=== PATIENT | female | born 1960 | race Caucasian/White ===

== ENCOUNTER 2020-09-19 06:26 | Day surgery (SDC) | payer OTHER, SELFPAY ==
[2020-09-13 14:23] VITALS: BMI 22.1
--- NOTE | 2020-09-18 10:16 | P.CONAN_ITS ---
Documented by User: Swati Arizmendi 09/18/20 10:16 HPI - Anesthesia Eval Consult details Narrative: 60yo F for Colonoscopy [facility] Past Medical History Medical History Anxiety Hx of gastroesophageal reflux (GERD) Surgical History Surgical History Hx of colonoscopy Hx of esophagogastroduodenoscopy Hx of tonsillectomy Social History Social History Smoking Status: Former smoker Smoking Quit Date: > 5 yrs ago Advance Directives: No Advance Directives Information Provided: No Advance Directives on File: No Meds Allergies Allergy/AdvReac Type Severity Reaction Status Date / Time No Known Allergies Allergy Verified 09/13/20 14:15 Home Medications Medication Instructions Recorded Confirmed Type omeprazole 20 mg PO DAILY 09/13/20 09/13/20 History sertraline 100 mg PO DAILY 09/13/20 09/13/20 History Exam Exam Date and Time: September 18, 2020 1016 Height,Weight and Vital Signs: Height 5 ft 5 in Weight 60.328 kg Assessment and Plan Assessment Anesthesia Assessment: Chart Reviewed Documented by User: Silva Robles 09/19/20 07:18 [facility] Past Medical History Medical History Anxiety Hx of gastroesophageal reflux (GERD) Surgical History Surgical History Hx of colonoscopy Hx of esophagogastroduodenoscopy Hx of tonsillectomy Social History Social History Smoking Status: Former smoker Smoking Quit Date: > 5 yrs ago Advance Directives: No Advance Directives Information Provided: No Advance Directives on File: No Meds Allergies Allergy/AdvReac Type Severity Reaction Status Date / Time No Known Allergies Allergy Verified 09/13/20 14:15 Home Medications Medication Instructions Recorded Confirmed Type omeprazole 20 mg PO DAILY 09/13/20 09/13/20 History sertraline 100 mg PO DAILY 09/13/20 09/13/20 History Exam Airway Mallampati Class: I (Cap front bottom) TM Dist: >3cm Neck ROM: Full Heart: RRR Lungs: CTA BL Assessment and Plan Assessment Anesthesia Assessment: Anesthesia Plan Discussed and Chart Reviewed Final Anesthetic Review NPO: Yes (Sip water with meds) ASA Class: II Final Preanesthetic Review: Meds/Allgs Chart Reviewed and Consent Obtained/Reviewed Patient Risk: Intermediate Procedure Risk: Intermediate Anesthetic Plan Anesthetic Plan: MAC: Disposition: Standard PACU
[2020-09-19 06:50] VITALS: BP 100/59; PULSE 70; RESP 16; TEMP 35.9; O2SAT 98
[2020-09-19] MEDS: Lactated Ringers 1,000 ML 100 ML IVCONT (06:53)
[2020-09-19 08:30] VITALS: BP 134/75; PULSE 61; RESP 16; TEMP 36.1; O2SAT 99
--- NOTE | 2020-09-19 08:34 | PM.OP ---
Brief Operative Note Date of Service: 09/19/20 Pre-op diagnosis: Screening, Family hx of colon cancer Post-op diagnosis: other (Diverticulosis) Procedure: Colonoscopy to cecum and TI Surgeon: Jayson Roa Anesthesia: MAC Estimated blood loss (mL): 0 Pathology: none sent Condition: stable Disposition: PACU
[2020-09-19 08:44] VITALS: BP 147/72; PULSE 52; RESP 16; TEMP 36.1; O2SAT 99
--- NOTE | 2020-09-19 08:57 | OP_ITS ---
SURGEON: Jayson Roa MD INDICATIONS: The patient presents for evaluation of colorectal cancer screening. Full consent has been obtained from her for this, including risks of bleeding and perforation. PREOPERATIVE DIAGNOSIS: POSTOPERATIVE DIAGNOSIS: PROCEDURE PERFORMED: Colonoscopy to the cecum and terminal ileum. ESTIMATED BLOOD LOSS: COMPLICATIONS: ANESTHESIA: Monitored anesthesia care. ASSISTANTS: SPECIMENS: PREOPERATIVE DIAGNOSES: Colorectal cancer screening and family history of colon cancer. POSTOPERATIVE DIAGNOSES: Colorectal cancer screening and family history of colon cancer, sigmoid diverticulosis, and small internal hemorrhoids. DESCRIPTION OF PROCEDURE: The patient was placed in the left lateral decubitus position. The digital rectal exam revealed no abnormalities. The Olympus video pediatric colonoscope was entered into the rectum and advanced easily to the cecum. Once in the cecum, I did identify normal-appearing cecal pouch with appendiceal orifice and a normal-appearing ileocecal valve. The terminal ileum was cannulated and appeared normal. Scope was withdrawn back in the colon. The entire cecum and ileocecal valve appeared normal. The scope was slowly withdrawn assessing all mucosal surfaces carefully. Preparation was excellent. I did not visualize any sign of polyps, colitis, nor angiodysplasia. There was a mild amount of sigmoid diverticulosis. In the rectum, scope was retroflexed visualizing small internal hemorrhoids, but no other pathology. The rectal mucosa appeared normal. The scope was straightened out and withdrawn from the patient. She tolerated the procedure well and was returned to the recovery area in stable condition. IMPRESSION: 1. Sigmoid diverticulosis. 2. Internal hemorrhoids. PLAN: Given her family history, I would recommend a followup colonoscopy in 5 years for further screening. She will see me otherwise on a p.r.n. basis. MD CJ Box/BIRGIT / [id number]
--- NOTE | 2020-09-19 09:06 | HO.POSTANES ---
Post Anesthesia Evaluation Post Anesthesia Evaluation Vital Signs: Vital Signs Temp Pulse Resp BP Pulse Ox 09/19/20 08:44 97.0 F 52 16 147/72 H 99 09/19/20 08:30 97.0 F 61 16 134/75 99 09/19/20 06:50 96.7 F L 70 16 100/59 L 98 Anesthesia: Monitored Mental Status: Awake Pain Control: Satisfactory Nausea/Vomiting: None Hydration: Adequate Anesthesia-Related Issues: No Anes. Related Issues
== END 2020-09-19 09:10 | disposition home or self-care (01) ==
PROVIDERS: Visit Provider Internal Medicine
PROC: 0DJD8ZZ Inspection of Lower Intestinal Tract, Via Natural or Artificial Opening Endoscopic (ICD-10-PCS; CPT 45378; principal; 2020-09-19 07:30)
DX: Z12.11 Encounter for screening for malignant neoplasm of colon (principal); K57.30 Diverticulosis of large intestine without perforation or abscess without bleeding; K64.8 Other hemorrhoids; Z80.0 Family history of malignant neoplasm of digestive organs
CPT/HCPCS: 45378

== ENCOUNTER 2020-11-05 08:05 | Outpatient (REF) | payer OTHER, SELFPAY ==
--- NOTE | 2020-11-05 08:09 | MM_ITS ---
EXAMINATION: MM SCREENING DIGITAL BREAST TOMOSYNTHESIS, BILATERAL CLINICAL INFORMATION: Screening. Asymptomatic. The lifetime risk of breast cancer based on the Tyrer-Cuzick Model is 7%. COMPARISON: Mammography: 10/31/2019, 10/25/2018, 09/28/2017 TECHNIQUE: Digital breast tomosynthesis is performed in both the craniocaudal and mediolateral oblique views along with computer-aided detection (CAD). Synthesized 2D images are generated from the tomosynthesis. FINDINGS: There are scattered areas of fibroglandular density (ACR BI-RADS breast composition Category b). There are no significant masses, abnormal calcifications, or other abnormalities. Parenchymal pattern is similar to prior studies. The axilla and skin contours are unremarkable. MM/MM tomosynthesis screening BI IMPRESSION: No mammographic evidence of malignancy. ASSESSMENT: BI-RADS 1: Negative RECOMMENDATION: Routine annual mammography screening. This patient's information was entered into a reminder system with a target due date for their next mammogram.
== END 2020-11-05 08:06 | disposition home or self-care (01) ==
LOC: HO.MAMMO 08:05
PROVIDERS: PCP Internal Medicine; Visit Provider Internal Medicine
DX: Z12.31 Encounter for screening mammogram for malignant neoplasm of breast (principal)
CPT/HCPCS: 77063; 77067

== ENCOUNTER 2021-03-06 07:52 | Outpatient (REF) | payer OTHER, SELFPAY ==
[2021-03-06 12:05] LABS: Alanine Aminotransferase 17 U/L (0-31); Albumin Level 4.4 g/dL (3.5-5.0); Alkaline Phosphatase 66 U/L (39-117); Anion Gap 13 (12-20); Aspartate Amino Transferase 22 U/L (5-31); Bilirubin Total 0.3 mg/dL (0.0-1.0); Blood Urea Nitrogen 16 mg/dL (9-16); Calcium 9.4 mg/dL (8.4-10.2); Carbon Dioxide 24 mmol/L (22-29); Chloride 103 mmol/L (96-108); Cholesterol 241 mg/dL; Estimated Glomerular Filt Rate > 60; Glucose Fasting 98 mg/dL (60-99); HDL Cholesterol 106 mg/dL; LDL Cholesterol Calculated 121 mg/dl; Potassium 4.3 mmol/L (3.3-5.1); Sodium 136 mmol/L (135-145); Total Protein 7.3 g/dL (6.5-8.0); Triglycerides 71 mg/dL
== END 2021-03-06 07:53 | disposition home or self-care (01) ==
LOC: HO.HMGCLDS 07:52
PROVIDERS: PCP Internal Medicine; Visit Provider Internal Medicine
DX: F41.8 Other specified anxiety disorders (principal); K21.9 Gastro-esophageal reflux disease without esophagitis; Z87.891 Personal history of nicotine dependence
CPT/HCPCS: 36415; 80053; 80061

== ENCOUNTER 2021-10-18 06:21 | Outpatient (REF) | payer OTHER, SELFPAY ==
[2021-10-18 06:56] LABS: Binax Internal Control QC Valid; Binax Now Covid-19 Ag Positive (Negative); Binax Performed by: HO.BONILM
== END 2021-10-18 06:22 | disposition home or self-care (01) ==
LOC: HO.HMGCLDS 06:21
PROVIDERS: PCP Internal Medicine; Visit Provider Physician Assistant
DX: Z20.822 Contact with and (suspected) exposure to COVID-19 (principal); J02.9 Acute pharyngitis, unspecified
CPT/HCPCS: 36415

== ENCOUNTER 2021-11-08 07:32 | Outpatient (REF) | payer OTHER, SELFPAY ==
--- NOTE | ~2021-11-08 | MM_ITS ---
EXAMINATION: MM SCREENING DIGITAL BREAST TOMOSYNTHESIS, BILATERAL CLINICAL INFORMATION: Screening. Asymptomatic. The lifetime risk of breast cancer based on the Tyrer-Cuzick Model is 7%. COMPARISON: Mammography: 11/05/2020, 10/31/2019, 10/25/2018 TECHNIQUE: Digital breast tomosynthesis is performed in both the craniocaudal and mediolateral oblique views along with computer-aided detection (CAD). Synthesized 2D images are generated from the tomosynthesis. FINDINGS: There are scattered areas of fibroglandular density (ACR BI-RADS breast composition Category b). There are no significant masses, abnormal calcifications, or other abnormalities. Parenchymal pattern is similar to prior exams. There is a smooth low left axillary tail node on left MLO view, beyond field of view on prior studies. The axilla and skin contours are unremarkable. No significant changes. MM/MM tomosynthesis screening BI IMPRESSION: No mammographic evidence of malignancy. ASSESSMENT: BI-RADS 2: Benign RECOMMENDATION: Routine annual mammography screening. This patient's information was entered into a reminder system with a target due date for their next mammogram.
== END 2021-11-08 07:33 | disposition home or self-care (01) ==
LOC: HO.MAMMO 07:32
PROVIDERS: PCP Internal Medicine; Visit Provider Internal Medicine
DX: Z12.31 Encounter for screening mammogram for malignant neoplasm of breast (principal)
CPT/HCPCS: 77063; 77067

== ENCOUNTER 2021-11-13 07:08 | Outpatient (REF) | payer OTHER, SELFPAY ==
[2021-11-13 11:30] LABS: MANUAL DIFF FLAG NO
[2021-11-13 11:40] LABS: Basophils Percent Auto 0.5 % (0-2); Eosinophils Absolute Auto 0.2 X10*3/uL (0.0-0.4); Hematocrit 41.4 % (37.0-47.0); Hemoglobin 13.2 g/dl (12.0-16.0); Imm Gran Abs Auto 0.01 X10*3/uL (0.00-0.03); Imm Gran Pct Auto 0.2 % (0.0-0.4); Lymphocytes Absolute Auto 1.8 X10*3/uL (1.2-4.9); Lymphocytes Percent Auto 30.4 % (20-40); Mean Corpuscular HGB Conc 31.9 g/dl (31.0-35.0); Mean Corpuscular Hemoglobin 28.8 pg (27.0-33.0); Mean Corpuscular Volume 90.2 fL (80.0-98.0); Mean Platelet Volume 8.6 fL (9.4-12.3); Monocytes Absolute Auto 0.6 X10*3/uL (0.1-1.2); Monocytes Percent Auto 10.1 % (2-11); Neutrophils Absolute Auto 3.3 x10*3/uL (2.0-8.3); Neutrophils Percent Auto 55.8 % (45-73); Platelet Count 321 X10*3/uL (160-400); Red Blood Count 4.59 X10*6/uL (4.20-5.50); Red Cell Distribution Width 12.6 % (11.0-16.0)
[2021-11-13 12:18] LABS: Alanine Aminotransferase 18 U/L (0-31); Albumin Level 4.4 g/dL (3.5-5.0); Alkaline Phosphatase 58 U/L (39-117); Anion Gap 9 (12-20); Aspartate Amino Transferase 22 U/L (5-31); Bilirubin Total 0.4 mg/dL (0.0-1.0); Blood Urea Nitrogen 19 mg/dL (9-16); Calcium 9.7 mg/dL (8.4-10.2); Carbon Dioxide 30 mmol/L (22-29); Chloride 102 mmol/L (96-108); Estimated Glomerular Filt Rate > 60; Glucose Random 91 mg/dL (60-115); Magnesium 2.3 mg/dL (1.6-2.6); Potassium 4.2 mmol/L (3.3-5.1); Sodium 137 mmol/L (135-145); Total Protein 7.6 g/dL (6.5-8.0)
== END 2021-11-13 07:09 | disposition home or self-care (01) ==
LOC: HO.HMGCLDS 07:08
PROVIDERS: Visit Provider Internal Medicine
DX: Z00.01 Encounter for general adult medical examination with abnormal findings (principal); F41.8 Other specified anxiety disorders; K21.9 Gastro-esophageal reflux disease without esophagitis
CPT/HCPCS: 36415; 80053; 83735; 85025

== ENCOUNTER 2022-09-23 12:47 | Outpatient (REF) | payer OTHER, SELFPAY ==
[2022-09-23 14:21] LABS: Influenza A PCR POSITIVE (Negative); Influenza B PCR NEGATIVE (Negative); Resp Syncy Virus RNA Qual PCR NEGATIVE (Negative); SARS COV2 PCR INHOUSE NEGATIVE (Negative)
== END 2022-09-23 12:48 | disposition home or self-care (01) ==
LOC: HO.LNP 12:47
PROVIDERS: Visit Provider Physician Assistant
DX: J06.9 Acute upper respiratory infection, unspecified (principal); Z20.822 Contact with and (suspected) exposure to COVID-19
CPT/HCPCS: 0241U

== ENCOUNTER 2022-11-13 07:55 | Outpatient (REF) | payer OTHER, SELFPAY ==
--- NOTE | ~2022-11-13 | MM_ITS ---
EXAMINATION: MM SCREENING DIGITAL BREAST TOMOSYNTHESIS, BILATERAL CLINICAL INFORMATION: Screening. Asymptomatic. The lifetime risk of breast cancer based on the Tyrer-Cuzick Model is 5.9%. COMPARISON: Mammography: November 08, 2021 and studies dating back to September 09, 2016 TECHNIQUE: Digital breast tomosynthesis is performed in both the craniocaudal and mediolateral oblique views along with computer-aided detection (CAD). Synthesized 2D images are generated from the tomosynthesis. FINDINGS: There are scattered areas of fibroglandular density (ACR BI-RADS breast composition Category b). There are no significant masses, abnormal calcifications, or other abnormalities. MM/MM tomosynthesis screening BI IMPRESSION: No significant changes ASSESSMENT: BI-RADS 1: Negative RECOMMENDATION: Routine annual mammography screening. This patient's information was entered into a reminder system with a target due date for their next mammogram.
== END 2022-11-13 07:56 | disposition home or self-care (01) ==
LOC: HO.MAMMO 07:55
PROVIDERS: Visit Provider Internal Medicine
DX: Z12.31 Encounter for screening mammogram for malignant neoplasm of breast (principal)
CPT/HCPCS: 77063; 77067

== ENCOUNTER 2022-11-17 06:15 | Outpatient (REF) | payer OTHER, SELFPAY ==
[2022-11-17 11:20] LABS: MANUAL DIFF FLAG NO
[2022-11-17 11:39] LABS: Basophils Absolute Auto 0.1 X10*3/uL (0.0-0.2); Basophils Percent Auto 1.1 % (0-2); Eosinophils Absolute Auto 0.2 X10*3/uL (0.0-0.4); Eosinophils Percent Auto 3.7 % (0-4); Hematocrit 40.1 % (37.0-47.0); Hemoglobin 13.1 g/dl (12.0-16.0); Imm Gran Abs Auto 0.01 X10*3/uL (0.00-0.03); Imm Gran Pct Auto 0.2 % (0.0-0.4); Lymphocytes Absolute Auto 1.7 X10*3/uL (1.2-4.9); Lymphocytes Percent Auto 37.5 % (20-40); Mean Corpuscular HGB Conc 32.7 g/dl (31.0-35.0); Mean Corpuscular Volume 88.7 fL (80.0-98.0); Mean Platelet Volume 8.9 fL (9.4-12.3); Monocytes Absolute Auto 0.5 X10*3/uL (0.1-1.2); Neutrophils Absolute Auto 2.2 x10*3/uL (2.0-8.3); Neutrophils Percent Auto 47.5 % (45-73); Platelet Count 243 X10*3/uL (160-400); Red Blood Count 4.52 X10*6/uL (4.20-5.50); Red Cell Distribution Width 13.1 % (11.0-16.0); White Blood Count 4.6 X10*3/uL (4.8-10.8)
[2022-11-17 12:18] LABS: Alanine Aminotransferase 20 U/L (0-31); Albumin Level 4.4 g/dL (3.5-5.0); Alkaline Phosphatase 52 U/L (39-117); Anion Gap 13 (12-20); Aspartate Amino Transferase 24 U/L (5-31); Bilirubin Total 0.5 mg/dL (0.0-1.0); Blood Urea Nitrogen 18 mg/dL (9-16); Calcium 9.3 mg/dL (8.4-10.2); Carbon Dioxide 27 mmol/L (22-29); Chloride 105 mmol/L (96-108); Cholesterol 278 mg/dL; Estimated Glomerular Filt Rate > 60; Glucose Fasting 89 mg/dL (60-99); HDL Cholesterol 109 mg/dL; LDL Cholesterol Calculated 156 mg/dl; Potassium 3.9 mmol/L (3.3-5.1); Sodium 141 mmol/L (135-145); TSH reflex Free T4 3.19 uIU/mL (0.32-4.0); Triglycerides 65 mg/dL
[2022-11-21 16:24] LABS: Vitamin D 25-OH, D2 <4 ng/mL; Vitamin D 25-OH, D3 37 ng/mL; Vitamin D 25-OH, Total 37 ng/mL (30-100)
== END 2022-11-17 06:16 | disposition home or self-care (01) ==
LOC: HO.HMGCLDS 06:15
PROVIDERS: PCP Internal Medicine; Visit Provider Internal Medicine
DX: Z00.01 Encounter for general adult medical examination with abnormal findings (principal); K21.9 Gastro-esophageal reflux disease without esophagitis; F41.8 Other specified anxiety disorders; M85.80 Other specified disorders of bone density and structure, unspecified site; R45.4 Irritability and anger
CPT/HCPCS: 36415; 80053; 80061; 82306; 84443; 85025

== ENCOUNTER 2023-05-08 06:05 | Outpatient (REF) | payer OTHER, SELFPAY ==
[2023-05-08 11:57] LABS: Cholesterol 257 mg/dL; HDL Cholesterol 111 mg/dL; LDL Cholesterol Calculated 135 mg/dl; Triglycerides 55 mg/dL
== END 2023-05-08 06:06 | disposition home or self-care (01) ==
LOC: HO.HMGCLDS 06:05
PROVIDERS: PCP Internal Medicine; Visit Provider Internal Medicine
DX: E78.9 Disorder of lipoprotein metabolism, unspecified (principal); F41.8 Other specified anxiety disorders; J44.9 Chronic obstructive pulmonary disease, unspecified; K21.9 Gastro-esophageal reflux disease without esophagitis; R45.4 Irritability and anger
CPT/HCPCS: 36415; 80061

== ENCOUNTER 2023-05-19 15:19 | Outpatient (AMB) | payer OTHER, SELFPAY ==
[2023-05-19 15:23] VITALS: BP 138/74; PULSE 74; O2SAT 97; BMI 20.2
--- NOTE | 2023-05-19 15:23 | A.OFFPC_ITS ---
Vital Signs 05/19/23 15:23 Height 5 ft 5 in Weight 121 lb 8 oz BMI 20.2 BP 138/74 Blood Pressure Location Rt brachial Position Sitting Pulse 74 Pulse Source Pulse Oximeter Pulse Oximetry (%) 97 Oxygen Delivery Method Room Air Intake Visit Reasons: annual PE Allergies No Known Allergies Allergy (Verified 05/19/23 15:24) Medication List - Last Reconciled 05/19/23 by Yvette Wiley MD albuterol sulfate 90 mcg/actuation (ProAir HFA) 1 inh inhalation QID PRN 30 days omeprazole 20 mg PO DAILY 90 days sertraline 150 mg (1.5 x 100 mg) PO DAILY 90 days Tobacco use date assessed: 05/19/23 Dental Screening Dental Screen Date: 05/19/23 Did you have a dental visit in the last 12 months?: Yes Did you have a dental problem in the last 6 months where you did not have access to dental care?: No Was dental information given to patient?: No HPI annual PE HPI Details Patient is a 60-year-old female came in today for a physical examination. Patient has healed from for and [employer] work today She does admit to feeling off balance off and on, I have placed a referral for her to be evaluated by Neurology Medication list reviewed, patient is on omeprazole 20 mg once a day and sertraline 100 mg daily for mood stabilization. Mild COPD, 30+ years of smoking history Mammogram was up-to-date Colonoscopy 07/31/[address] Roa Pap smear is due, patient says that she will make OBGYN appointment herself Follow-up 6 months [facility] Medical History Chronic GERD (~2003) Depression with anxiety History of colon polyps Osteopenia Personal history of nicotine dependence Surgical History Hx of colonoscopy Hx of esophagogastroduodenoscopy (~2004) Hx of tonsillectomy Family History Father Colon cancer Social History Housing: Apartment Patient Tobacco Use Status: Former Tobacco user Quit Date: 2009 Tobacco use type: Cigarette Years Smoked: 34 years e-Cigarette/Vaping Use: Never Used Current occupational status: employed Cognitive needs: No Hearing needs: No Vision needs: Yes Questionnaire PHQ-9 Over the last 2 weeks, how often have you been bothered by any of the following problems? 1. Little interest or pleasure in doing things: not at all 2. Feeling down, depressed, or hopeless: not at all 3. Trouble falling or staying asleep, or sleeping too much: not at all 4. Feeling tired or having little energy: not at all 5. Poor appetite or overeating: not at all 6. Feeling bad about yourself - or that you are a failure or have let yourself o r your family down: not at all 7. Trouble concentrating on things, such as reading the newspaper or watching television: not at all 8. Moving or speaking so slowly that other people could have noticed. Or the opposite - being so fidgety or restless that you have been moving around a lot more than usual: not at all 9. Thoughts that you would be better off or of hurting yourself in some way: not at all Total score: 0 Depression Screening Interpretation: Negative 99225 - PHQ-9 Billing: Yes Source: Developed by Drs. Jayson Melo, Erika Garcia, Godfrey Vargas and colleagues, with an educational mara from [employer]. Thrive Questionnaire Date Thrive assessed: 05/19/23 I am a: Patient What is your living situation today?: I have a steady place to live Within the past 12 months, did the food you bought not last and you didn't have the money to get more?: Never true Within the past 12 months, did you worry whether your food would run out before you got money to buy more?: Never true Do you have trouble paying for medicines?: No Do you have trouble getting transportation to medical appointments?: No Do you have trouble paying your heating and electricity bill?: No Do you have trouble taking care of your child, family member or friend?: No Do you have trouble with day-to-day activities such as bathing, preparing meals, shopping, managing finances, etc.?: No Are you currently unemployed and looking for a job?: No Are you interested in more education?: No AUDIT C Alcohol Use Questionnaire (AUDIT-C) 1. How often do you have a drink containing alcohol?: 2-4 times a month 2. How many drinks containing alcohol do you have on a typical day when you are drinking?: 1 or 2 3. How often do you have six or more drinks on one occasion?: Never Total Score: 2 Score Reviewed/Action Taken: Yes BESSIE-7 AMB Questionnaire BESSIE-7 Date BESSIE - 7 assessed: 05/19/23 Feeling nervous, anxious, or on edge: 0 = Not at all Not being able to stop or control worryin = Not at all Worrying too much about different things: 0 = Not at all Trouble relaxin = Not at all Being so restless that it is hard to sit still: 0 = Not at all Becoming easily annoyed or irritable: 0 = Not at all Feeling afraid as if something awful might happen: 0 = Not at all Total BESSIE-7 score (0-4 normal; 5-9 mild; 10-14 moderate; 15-21 severe): 0 Source: Developed by Drs. Jayson Melo, Erika Garcia, Godfrey Vargas and colleagues, with an educational mara from [employer]. BESSIE-7 Assessment Billing BESSIE-7 Assessment Tool: BESSIE-7 Assessment 31284 Review of Systems Const Denies chills, Denies fever(s) and Denies headache(s) Eyes Denies blurry vision ENT Denies headache(s), Denies nasal discharge, Denies nasal obstruction, Denies odynophagia and Denies sinus pain Card Denies chest pain at rest and Denies chest pain with activity Resp Denies cough and Denies hemoptysis GI Denies diarrhea, Denies odynophagia, Denies vomiting and Denies hematemesis Reports as per HPI Musc Denies abnormal gait Skin/Breast Reports as per HPI Neuro Denies Neuro-related abnormal movements, Denies Abnormal speech present, Denies abnormal gait, Denies headache(s) and Denies Sensory deficit (Neuro) Psych Denies mood swings and Denies paranoia Endo Reports as per HPI Kanu/Lymph Reports as per HPI Aller/Immun Reports as per HPI Physical exam (Primary Care) Vital Signs: Last Vital Signs Pulse 74 05/19/23 15:23 BP 138/74 05/19/23 15:23 Pulse Ox 97 05/19/23 15:23 Oxygen Delivery Method Room Air 05/19/23 15:23 BMI result Body Mass Index 20.2 Tobacco/Smoking Status: Tobacco use Status Tobacco use date assessed 05/19/23 05/19/23 15:25 Patient Tobacco Use Status Former Tobacco user 05/19/23 15:25 Tobacco use type Cigarette 05/19/23 15:25 e-Cigarette/Vaping Use Never Used 05/19/23 15:25 PHQ-9: PHQ-9 Score PHQ-9: Total score 0 05/19/23 15:51 Depression Screening Interpretation: Negative Thrive Assessment: Date of Thrive Assessment Date Thrive assessed 05/19/23 05/19/23 15:51 Const General: cooperative, comfortable and no acute distress Orientation/consciousness: patient oriented x3 HENMT Head: Yes normocephalic and Yes atraumatic Eyes General: appearance normal, both eyes and all related structures Pupils: Equal, round and reactive pupils present EOM: EOMs intact bilaterally Neck Neck: Yes supple and No lymphadenopathy Thyroid: Thyroid normal Lymphatic: no lymphadenopathy noted Resp Effort & Inspection: normal respiratory effort and able to speak in complete sentences Auscultation: clear to auscultation bilaterally Cardio Heart sounds: S1 normal heart sound present and S2 normal heart sound present GI Palpation (GI): Soft to palpation and nontender Auscultation: normal bowel sounds General: Yes no CVA tenderness Back/Spine/Pelvis Back: no CVA tenderness Skin General skin exam: elasticity normal and turgor normal Neuro General: patient oriented x3 and gait normal Cranial nerves: Yes Equal, round and reactive pupils present Speech: No Abnormal speech present Sensory Exam: No Sensory deficit (Neuro) Extrem General: Yes normal exam except as noted and No edema Assessment and Plan Assessment & Plan (1) Encounter for general adult medical examination with abnormal findings: Code(s): Z00.01 - Encounter for general adult medical examination with abnormal findings (2) Chronic GERD: Onset Date: ~2003 Code(s): K21.9 - Gastro-esophageal reflux disease without esophagitis (3) Irritable mood: Code(s): R45.4 - Irritability and anger (4) Depression with anxiety: Code(s): F41.8 - Other specified anxiety disorders (5) COPD, mild: Code(s): J44.9 - Chronic obstructive pulmonary disease, unspecified (6) Lipid disorder: Code(s): E78.9 - Disorder of lipoprotein metabolism, unspecified (7) Abnormal Romberg test: Code(s): R29.818 - Other symptoms and signs involving the nervous system (8) Abnormal tandem walk: Code(s): R26.9 - Unspecified abnormalities of gait and mobility Plan Patient is a 60-year-old female came in today for a physical examination. 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 Mild COPD, 30+ years of smoking history Mammogram was up-to-date Colonoscopy 07/31/[address] Roa Pap smear is due, patient says that she will make OBGYN appointment herself Follow-up 6 months Orders: Orders Vitamin B12 Today E78.9 - Disorder of lipoprotein metabolism, unspecified, F41.8 - Other specified anxiety disorders, J44.9 - Chronic obstructive pulmonary disease, unspecified, K21.9 - Gastro-esophageal reflux disease without esophagitis, R26.9 - Unspecified abnormalities of gait and mobility, R29.818 - Other symptoms and signs involving the nervous system, R45.4 - Irritability and anger, Z00.01 - Encounter for general adult medical examination with abnormal findings Comprehensive [place]. Panel Fast Today E78.9 - Disorder of lipoprotein metabolism, unspecified, F41.8 - Other specified anxiety disorders, J44.9 - Chronic obstructive pulmonary disease, unspecified, K21.9 - Gastro-esophageal reflux disease without esophagitis, R26.9 - Unspecified abnormalities of gait and mobility, R29.818 - Other symptoms and signs involving the nervous system, R45.4 - Irritability and anger, Z00.01 - Encounter for general adult medical examination with abnormal findings Lipid Panel Today E78.9 - Disorder of lipoprotein metabolism, unspecified, F41.8 - Other specified anxiety disorders, J44.9 - Chronic obstructive pulmonary disease, unspecified, K21.9 - Gastro-esophageal reflux disease without esophagitis, R26.9 - Unspecified abnormalities of gait and mobility, R29.818 - Other symptoms and signs involving the nervous system, R45.4 - Irritability and anger, Z00.01 - Encounter for general adult medical examination with abnormal findings TSH reflex Free T4 Today E78.9 - Disorder of lipoprotein metabolism, unspecified, F41.8 - Other specified anxiety disorders, J44.9 - Chronic obstructive pulmonary disease, unspecified, K21.9 - Gastro-esophageal reflux disease without esophagitis, R26.9 - Unspecified abnormalities of gait and mobility, R29.818 - Other symptoms and signs involving the nervous system, R45.4 - Irritability and anger, Z00.01 - Encounter for general adult medical examination with abnormal findings Vitamin D 25-OH (D2 and D3) Today E78.9 - Disorder of lipoprotein metabolism, unspecified, F41.8 - Other specified anxiety disorders, J44.9 - Chronic obstructive pulmonary disease, unspecified, K21.9 - Gastro-esophageal reflux disease without esophagitis, R26.9 - Unspecified abnormalities of gait and mobility, R29.818 - Other symptoms and signs involving the nervous system, R45.4 - Irritability and anger, Z00.01 - Encounter for general adult medical examination with abnormal findings Complete Blood Count Auto Diff Today E78.9 - Disorder of lipoprotein metabolism, unspecified, F41.8 - Other specified anxiety disorders, J44.9 - Chronic obstructive pulmonary disease, unspecified, K21.9 - Gastro-esophageal reflux disease without esophagitis, R26.9 - Unspecified abnormalities of gait and mobility, R29.818 - Other symptoms and signs involving the nervous system, R45.4 - Irritability and anger, Z00.01 - Encounter for general adult medical examination with abnormal findings Referrals Neurology Referral R26.9 - Unspecified abnormalities of gait and mobility, R29.818 - Other symptoms and signs involving the nervous system Coding Level of Care Code Est Pt Prev Care 40-64y([id number]) Diagnoses Encounter for general adult medical examination with abnormal findings Z00.01 Chronic GERD K21.9 Irritable mood R45.4 Depression with anxiety F41.8 COPD, mild J44.9 Lipid disorder E78.9 Abnormal Romberg test R29.818 Abnormal tandem walk R26.9 Additional Codes BESSIE-7 Assessment Billing - BESSIE-7 Assessment Tool: BESSIE-7 Assessment [id number] ([id number])
== END 2023-05-19 16:44 | disposition home or self-care (01) ==
PROVIDERS: PCP Internal Medicine; Visit Provider Internal Medicine
DX: Z00.01 Encounter for general adult medical examination with abnormal findings (principal); K21.9 Gastro-esophageal reflux disease without esophagitis; F41.8 Other specified anxiety disorders; J44.9 Chronic obstructive pulmonary disease, unspecified; E78.9 Disorder of lipoprotein metabolism, unspecified; R45.4 Irritability and anger; R29.818 Other symptoms and signs involving the nervous system; R26.9 Unspecified abnormalities of gait and mobility
CPT/HCPCS: 99396

== ENCOUNTER 2023-11-20 12:43 | Outpatient (REF) | payer OTHER, SELFPAY | END 2023-11-20 12:44 | disposition home or self-care (01) | LOC: HO.MAMMO 12:43 | PROVIDERS: PCP Internal Medicine; Visit Provider Internal Medicine | DX: Z12.31 Encounter for screening mammogram for malignant neoplasm of breast (principal) | CPT/HCPCS: 77063; 77067 ==

== ENCOUNTER → 2023-11-20 12:45 | Outpatient (BNV) | payer OTHER, SELFPAY | PROVIDERS: PCP Internal Medicine; Visit Provider Radiology Diagnostic Radiology | DX: Z12.31 Encounter for screening mammogram for malignant neoplasm of breast (principal) | CPT/HCPCS: 77063; 77067 ==

== ENCOUNTER 2023-12-18 13:08 | Outpatient (AMB) | payer OTHER, SELFPAY ==
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
[2023-12-18 13:33] VITALS: BP 124/66; PULSE 67; O2SAT 98; BMI 20.6
== END 2023-12-18 14:46 | disposition home or self-care (01) ==
LOC: HO.HSMS 13:08
PROVIDERS: PCP Internal Medicine; Visit Provider Nurse Practitioner Family
DX: R26.9 Unspecified abnormalities of gait and mobility (principal); R29.818 Other symptoms and signs involving the nervous system; R25.1 Tremor, unspecified
CPT/HCPCS: 99204

== ENCOUNTER → 2023-12-18 13:08 | Outpatient (BNVA) | payer OTHER, SELFPAY | PROVIDERS: PCP Internal Medicine; Visit Provider Nurse Practitioner Family ==

== ENCOUNTER 2023-12-26 06:30 | Outpatient (REF) | payer OTHER, SELFPAY ==
[2023-12-26 11:55] LABS: MANUAL DIFF FLAG NO
[2023-12-26 11:59] LABS: Basophils Absolute Auto 0.1 X10*3/uL (0.0-0.2); Basophils Percent Auto 0.6 % (0-2); Eosinophils Absolute Auto 0.2 X10*3/uL (0.0-0.4); Hematocrit 41.1 % (37.0-47.0); Hemoglobin 13.6 g/dl (12.0-16.0); Imm Gran Abs Auto 0.02 X10*3/uL (0.00-0.03); Imm Gran Pct Auto 0.2 % (0.0-0.4); Lymphocytes Absolute Auto 1.1 X10*3/uL (1.2-4.9); Mean Corpuscular HGB Conc 33.1 g/dl (31.0-35.0); Mean Corpuscular Hemoglobin 28.9 pg (27.0-33.0); Mean Corpuscular Volume 87.4 fL (80.0-98.0); Mean Platelet Volume 8.6 fL (9.4-12.3); Monocytes Absolute Auto 0.8 X10*3/uL (0.1-1.2); Monocytes Percent Auto 9.7 % (2-11); Neutrophils Absolute Auto 6.2 x10*3/uL (2.0-8.3); Neutrophils Percent Auto 74.5 % (45-73); Platelet Count 300 X10*3/uL (160-400); Red Cell Distribution Width 12.9 % (11.0-16.0); White Blood Count 8.3 X10*3/uL (4.8-10.8)
[2023-12-26 12:34] LABS: Alanine Aminotransferase 24 U/L (0-31); Albumin Level 4.3 g/dL (3.5-5.0); Alkaline Phosphatase 75 U/L (39-117); Anion Gap 14 (12-20); Aspartate Amino Transferase 29 U/L (5-31); Bilirubin Total 0.6 mg/dL (0.0-1.0); Blood Urea Nitrogen 11 mg/dL (9-16); Calcium 9.5 mg/dL (8.4-10.2); Carbon Dioxide 25 mmol/L (22-29); Chloride 104 mmol/L (96-108); Cholesterol 224 mg/dL (<200); Estimated Glomerular Filt Rate > 60; Glucose Fasting 105 mg/dL (60-99); HDL Cholesterol 121 mg/dL (>40); LDL Cholesterol Calculated 95 mg/dL (<100); Potassium 4.2 mmol/L (3.3-5.1); Sodium 139 mmol/L (135-145); Total Protein 7.9 g/dL (6.5-8.0); Triglycerides 44 mg/dL (<150)
[2023-12-26 12:49] LABS: Vitamin B12 986 pg/mL (200-900)
[2023-12-26 12:52] LABS: TSH reflex Free T4 2.85 uIU/mL (0.32-4.0)
[2023-12-30 13:39] LABS: Vitamin D 25-OH, D2 <4 ng/mL; Vitamin D 25-OH, D3 44 ng/mL; Vitamin D 25-OH, Total 44 ng/mL (30-100)
== END 2023-12-26 06:31 | disposition home or self-care (01) ==
LOC: HO.HMGCLDS 06:30
PROVIDERS: PCP Internal Medicine; Visit Provider Internal Medicine
DX: Z00.01 Encounter for general adult medical examination with abnormal findings (principal); J44.9 Chronic obstructive pulmonary disease, unspecified; K21.9 Gastro-esophageal reflux disease without esophagitis; F41.8 Other specified anxiety disorders; R45.4 Irritability and anger; E78.9 Disorder of lipoprotein metabolism, unspecified; R29.818 Other symptoms and signs involving the nervous system; R26.9 Unspecified abnormalities of gait and mobility
CPT/HCPCS: 36415; 80053; 80061; 82306; 82607; 84443; 85025

== ENCOUNTER 2024-01-01 14:18 | Outpatient (AMB) | payer OTHER, SELFPAY ==
--- NOTE | 2024-01-01 14:30 | A.OFFPC_ITS ---
Vital Signs 01/01/24 14:31 Height 5 ft 5 in Weight 123 lb 4 oz BMI 20.5 BP 124/62 Blood Pressure Location Rt brachial Position Sitting Pulse 64 Pulse Source Pulse Oximeter Pulse Oximetry (%) 97 Oxygen Delivery Method Room Air Intake Visit Reasons: 6 month fu Allergies No Known Allergies Allergy (Verified 01/01/24 14:33) Medication List - Last Reconciled 01/01/24 by Yvette Wiley MD albuterol sulfate 90 mcg/actuation (ProAir HFA) 1 inh inhalation QID PRN 30 days omeprazole 20 mg PO DAILY 90 days sertraline 150 mg (1.5 x 100 mg) PO DAILY 90 days Tobacco use date assessed: 01/01/24 Fall risk assessment: No Falls in past year Last assessed Fall Risk: 01/01/24 Dental Screening Dental Screen Date: 01/01/24 Did you have a dental visit in the last 12 months?: Yes Did you have a dental problem in the last 6 months where you did not have access to dental care?: No Was dental information given to patient?: Patient has dentist HPI 6 month fu HPI Details Patient is a 63-year-old female came in today for follow-up appointment Patient is seen neurologist for balance problem She says that MRI was supposed to be ordered along with neck x-ray but I do not see it ordered in the notes Patient will call the office follow-up on that Depression and anxiety stable patient is on 150 mg of citrulline GERD is stable with 20 mg of omeprazole Patient have COPD, she had respiratory tract infection 2 weeks ago still recovering from it with mild cough She is using albuterol inhaler every day I have sent Advair which need to be started 2 times a day 12 hours apart We will follow-up on that in 3 weeks to see how she is doing PFSH Medical History Osteopenia History of colon polyps Personal history of nicotine dependence Chronic GERD (~2003) Depression with anxiety Surgical History Hx of tonsillectomy Hx of esophagogastroduodenoscopy (~2004) Hx of colonoscopy Family History Father Colon cancer Sister Mental health disorder Social History Housing: Apartment Patient Tobacco Use Status: Former Tobacco user Quit Date: 2009 Tobacco use type: Cigarette Years Smoked: 34 years e-Cigarette/Vaping Use: Never Used Current occupational status: employed Cognitive needs: No Hearing needs: No Vision needs: Yes Questionnaire PHQ-9 Over the last 2 weeks, how often have you been bothered by any of the following problems? 1. Little interest or pleasure in doing things: not at all 2. Feeling down, depressed, or hopeless: not at all 3. Trouble falling or staying asleep, or sleeping too much: not at all 4. Feeling tired or having little energy: not at all 5. Poor appetite or overeating: not at all 6. Feeling bad about yourself - or that you are a failure or have let yourself or your family down: not at all 7. Trouble concentrating on things, such as reading the newspaper or watching television: not at all 8. Moving or speaking so slowly that other people could have noticed. Or the opposite - being so fidgety or restless that you have been moving around a lot more than usual: not at all 9. Thoughts that you would be better off or of hurting yourself in some way: not at all Total score: 0 Depression Screening Interpretation: Negative Depression Screening Done: Yes 62132 - PHQ-9 Billing: Yes Source: Developed by Drs. Jayson Melo, Erika Garcia, Godfrey Vargas and colleagues, with an educational mara from [employer]. Thrive Questionnaire Date Thrive assessed: 01/01/24 I am a: Patient What is your living situation today?: I have a steady place to live Within the past 12 months, did the food you bought not last and you didn't have the money to get more?: Never true Within the past 12 months, did you worry whether your food would run out before you got money to buy more?: Never true Do you have trouble paying for medicines?: No Do you have trouble getting transportation to medical appointments?: No Do you have trouble paying your heating and electricity bill?: No Do you have trouble taking care of your child, family member or friend?: No Do you have trouble with day-to-day activities such as bathing, preparing meals, shopping, managing finances, etc.?: No Are you currently unemployed and looking for a job?: No Are you interested in more education?: No Please select the resources that you would like help with: None Currently or been in a relationship where the following occur: no concerns reported THRIVE Score: 0 AUDIT C Alcohol Use Questionnaire (AUDIT-C) 1. How often do you have a drink containing alcohol?: 2-4 times a month 2. How many drinks containing alcohol do you have on a typical day when you are drinking?: 1 or 2 3. How often do you have six or more drinks on one occasion?: Never Total Score: 2 Score Reviewed/Action Taken: No BESSIE-7 AMB Questionnaire BESSIE-7 Date BESSIE - 7 assessed: 01/01/24 Feeling nervous, anxious, or on edge: 0 = Not at all Not being able to stop or control worryin = Not at all Worrying too much about different things: 0 = Not at all Trouble relaxin = Not at all Being so restless that it is hard to sit still: 0 = Not at all Becoming easily annoyed or irritable: 0 = Not at all Feeling afraid as if something awful might happen: 0 = Not at all Total BESSIE-7 score (0-4 normal; 5-9 mild; 10-14 moderate; 15-21 severe): 0 Source: Developed by Drs. Jayson Melo, Erika Garcia, Godfrey Vargas and colleagues, with an educational mara from [employer]. BESSIE-7 Assessment Billing BESSIE-7 Assessment Tool: BESSIE-7 Assessment 97644 Review of Systems Const Denies chills and Denies fever(s) ENT Denies epistaxis and Denies nasal discharge Card Denies chest pain Resp Denies hemoptysis GI Denies diarrhea and Denies nausea Skin/Breast Denies rash Neuro Reports no additional complaints Psych Reports no additional complaints Endo Reports no additional complaints Physical exam (Primary Care) Vital Signs: Last Vital Signs Pulse 64 01/01/24 14:31 BP 124/62 01/01/24 14:31 Pulse Ox 97 01/01/24 14:31 Oxygen Delivery Method Room Air 01/01/24 14:31 BMI result Body Mass Index 20.5 Tobacco/Smoking Status: Tobacco use Status Tobacco use date assessed 01/01/24 01/01/24 14:36 Patient Tobacco Use Status Former Tobacco user 01/01/24 14:36 Tobacco use type Cigarette 01/01/24 14:36 e-Cigarette/Vaping Use Never Used 01/01/24 14:36 Depression Screening Interpretation: Negative Thrive Assessment: Date of Thrive Assessment Date Thrive assessed 01/01/24 01/01/24 14:38 Currently or been in a relationship where the following occur: no concerns reported Const General: cooperative, comfortable and no acute distress Orientation/consciousness: patient oriented x3 HENMT Head: Yes normocephalic Eyes General: appearance normal, both eyes and all related structures Neck Neck: Yes supple Resp Effort & Inspection: normal respiratory effort, no cough and no stridor Cardio Rhythm: regular rhythm Heart sounds: S1 normal heart sound present and S2 normal heart sound present Skin General skin exam: turgor normal Neuro General: patient oriented x3, tone normal and moves all extremities Extrem Right lower extremity: no edema Left lower extremity: no edema Assessment and Plan Assessment & Plan (1) Depression with anxiety: Code(s): F41.8 - Other specified anxiety disorders (2) Chronic GERD: Onset Date: ~2003 Code(s): K21.9 - Gastro-esophageal reflux disease without esophagitis (3) Irritable mood: Code(s): R45.4 - Irritability and anger (4) COPD, mild: Code(s): J44.9 - Chronic obstructive pulmonary disease, unspecified (5) Lipid disorder: Code(s): E78.9 - Disorder of lipoprotein metabolism, unspecified Plan Patient is a 63-year-old female came in today for follow-up appointment Patient is seen neurologist for balance problem She says that MRI was supposed to be ordered along with neck x-ray but I do not see it ordered in the notes Patient will call the office follow-up on that Depression and anxiety stable patient is on 150 mg of citrulline GERD is stable with 20 mg of omeprazole Patient have COPD, she had respiratory tract infection 2 weeks ago still recovering from it with mild cough She is using albuterol inhaler every day I have sent Advair which need to be started 2 times a day 12 hours apart We will follow-up on that in 3 weeks to see how she is doing Medications: New fluticasone propion-salmeterol 500-50 mcg/dose (Advair Diskus) rise your mouth after use 1 inh inhalation Q12H 60 ea 0RF Coding Level of Care Code Est Pt Level 4 (04251) Diagnoses Depression with anxiety F41.8 Chronic GERD K21.9 Irritable mood R45.4 COPD, mild J44.9 Lipid disorder E78.9 Additional Codes BESSIE-7 Assessment Billing - BESSIE-7 Assessment Tool: BESSIE-7 Assessment 11721 ([id number])
[2024-01-01 14:31] VITALS: BP 124/62; PULSE 64; O2SAT 97; BMI 20.5
== END 2024-01-01 15:17 | disposition home or self-care (01) ==
PROVIDERS: PCP Internal Medicine; Visit Provider Internal Medicine
DX: J44.9 Chronic obstructive pulmonary disease, unspecified (principal); F41.8 Other specified anxiety disorders; K21.9 Gastro-esophageal reflux disease without esophagitis; R45.4 Irritability and anger; E78.9 Disorder of lipoprotein metabolism, unspecified; Z87.891 Personal history of nicotine dependence
CPT/HCPCS: 99214

== ENCOUNTER 2024-01-22 07:37 | Outpatient (AMB) | payer OTHER, SELFPAY ==
--- NOTE | 2024-01-22 07:41 | MHC.PC.OV ---
Intake Visit Reasons: 3 week follow up Allergies No Known Allergies Allergy (Verified 01/01/24 14:33) Medication List - Last Reconciled 01/22/24 by Yvette Wiley MD albuterol sulfate 90 mcg/actuation (ProAir HFA) 1 inh inhalation QID PRN 30 days fluticasone propion-salmeterol 500-50 mcg/dose (Advair Diskus) 1 inh inhalation Q12H omeprazole 20 mg PO DAILY 90 days sertraline 150 mg (1.5 x 100 mg) PO DAILY 90 days Tobacco use date assessed: 01/01/24 Dental Screening Dental Screen Date: 01/01/24 HPI 3 week follow up HPI Details Patient is 63-year-old female this is a telemedicine video conference She was started on Advair inhaler last visit Patient try date she feels as if she does not need a maintenance inhaler, albuterol is enough for her As she does not need that daily anymore. However patient has tolerated Advair. We talked about cold and other respiratory infection that will trigger her COPD flare-up She can use it then. She is waiting for her brain MRI which is ordered for tomorrow, I see that neck x-ray order is also in the chart Patient was enquiring about that. She has a follow-up appointment with the neurologist in March. Follow-up May with me for physical exam. [facility] Medical History Osteopenia History of colon polyps Personal history of nicotine dependence Chronic GERD (~2003) Depression with anxiety Surgical History Hx of tonsillectomy Hx of esophagogastroduodenoscopy (~2004) Hx of colonoscopy Family History Father Colon cancer Sister Mental health disorder Social History Housing: Apartment Patient Tobacco Use Status: Former Tobacco user Quit Date: 2009 Tobacco use type: Cigarette Years Smoked: 34 years e-Cigarette/Vaping Use: Never Used Current occupational status: employed Cognitive needs: No Hearing needs: No Vision needs: Yes Questionnaire Thrive Questionnaire Date Thrive assessed: 01/01/24 BESSIE-7 AMB Questionnaire BESSIE-7 Date BESSIE - 7 assessed: 01/01/24 Source: Developed by Drs. Jayson Melo, Erika Garcia, Godfrey Vargas and colleagues, with an educational mara from [employer]. Review of Systems Const Denies chills and Denies fever(s) ENT Denies epistaxis and Denies nasal discharge Card Denies chest pain Resp Denies chest congestion and Denies hemoptysis GI Denies diarrhea and Denies nausea Skin/Breast Denies rash Neuro Reports no additional complaints Psych Reports no additional complaints Endo Reports no additional complaints Physical exam (Primary Care) Tobacco/Smoking Status: Tobacco use Status Tobacco use date assessed 01/01/24 01/22/24 07:44 Patient Tobacco Use Status Former Tobacco user 01/22/24 07:44 Tobacco use type Cigarette 01/22/24 07:44 e-Cigarette/Vaping Use Never Used 01/22/24 07:44 Thrive Assessment: Date of Thrive Assessment Date Thrive assessed 01/01/24 01/22/24 07:44 Telehealth Telehealth Location of provider rendering services: practice address Location of patient: address on file Patient Identification confirmed using: Name, : Yes Telehealth method: video Patient verbally consented to treatment: Yes Patient verbally consented to billing insurance company: Yes Patient informed of any privacy concerns related to visit: Yes Minutes spent on Phone/Video with Pt.: 12 Assessment and Plan Assessment & Plan (1) COPD, mild: Code(s): J44.9 - Chronic obstructive pulmonary disease, unspecified Plan Patient is 63-year-old female this is a telemedicine video conference She was started on Advair inhaler last visit Patient try date she feels as if she does not need a maintenance inhaler, albuterol is enough for her As she does not need that daily anymore. However patient has tolerated Advair. We talked about cold and other respiratory infection that will trigger her COPD flare-up She can use it then. She is waiting for her brain MRI which is ordered for tomorrow, I see that neck x-ray order is also in the chart Patient was enquiring about that. She has a follow-up appointment with the neurologist in March. Follow-up May with me for physical exam. Coding Level of Care Code Tele Est Pt Level 3 (26833) Diagnoses COPD, mild J44.9
== END 2024-01-22 08:49 | disposition home or self-care (01) ==
LOC: HO.HMGC 07:37
PROVIDERS: PCP Internal Medicine; Visit Provider Internal Medicine
DX: J44.9 Chronic obstructive pulmonary disease, unspecified (principal)
CPT/HCPCS: 99213

== ENCOUNTER 2024-01-23 13:41 | Outpatient (REF) | payer OTHER, SELFPAY ==
--- NOTE | ~2024-01-23 | MR_ITS ---
EXAMINATION: MR BRAIN WITHOUT CONTRAST CLINICAL INFORMATION: 63-year-old with unspecified abnormalities of gait and mobility. COMPARISON: None available. TECHNIQUE: MRI of the brain was obtained using routine sequences without contrast. FINDINGS: Brain Volume: [id number] generalized diffuse parenchymal volume loss within the limitations of qualitative assessment. Structural: No malformations. Brain and Meninges: DWI sequence demonstrates no restricted diffusion to suggest acute or subacute cerebral ischemia. There are scattered small patchy zones of FLAIR/T2 signal hyperintensity in the subcortical and deeper white matter of both cerebral hemispheres, which are nonspecific findings, but could reflect chronic ischemic microangiopathy. There are patchy/confluent regions of FLAIR/T2 signal hyperintensity on both sides of the gene also likely reflecting chronic ischemic microangiopathy. There is a mild degree of gradient refocused imaging demonstrates no abnormal susceptibility-weighted signal loss to suggest hemorrhage, hemosiderin staining or abnormal mineralization at the level of the basal ganglia and thalami. Refocused imaging demonstrates no abnormal susceptibility-weighted signal loss to suggest hemorrhage, hemosiderin staining or abnormal mineralization. No extra-axial fluid collections, space-occupying process or mass effect are identified. Ventricles and Subarachnoid Spaces: The ventricular system and subarachnoid spaces are within normal range; there is no hydrocephalus. Orbital Structures: The visualized orbital structures are grossly unremarkable within the limitations of the study. Vascular: Signal voids are noted in the visualized major intracranial vessels. Osseous Structures, Sinuses/Mastoids, Extracranial Soft Tissues: Osseous marrow signal intensity appears grossly within normal limits. There are minor degrees of mucosal thickening in the ethmoid complex and a small retention cyst in the right maxillary sinus. There is some fluid in the right mastoid near the right mastoid tip and to a lesser degree in the left mastoid tip. MR/MR head/brain wo con IMPRESSION: 1. 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 2. No acute intracranial process. No evidence for infarction, hemorrhage, extra-axial fluid collection, space-occupying process, mass effect or hydrocephalus. 3. Small mastoid effusions and mild paranasal sinus mucosal thickening.
== END 2024-01-23 13:42 | disposition home or self-care (01) ==
LOC: HO.MRI 13:41
PROVIDERS: PCP Internal Medicine; Visit Provider Nurse Practitioner Family
DX: R26.9 Unspecified abnormalities of gait and mobility (principal); R29.818 Other symptoms and signs involving the nervous system; R25.1 Tremor, unspecified
CPT/HCPCS: 70551

== ENCOUNTER 2024-01-27 14:01 | Outpatient (REF) | payer OTHER, SELFPAY ==
--- NOTE | ~2024-01-27 | XR_ITS ---
EXAMINATION: XR CERVICAL SPINE CLINICAL INFORMATION: Pain. COMPARISON: Cervical spine radiographs dated 08/14/2015. TECHNIQUE: Frontal, odontoid, bilateral oblique and lateral views of the cervical spine were obtained. FINDINGS: There is bony demineralization. There is mild reversal of the normal lordotic curvature. At C2-C3, there is a 2 mm anterolisthesis. At C5-C6 and C6-C7, there is marked degenerative disc disease. There is no acute fracture or spondylolisthesis. Mild anterior spondylosis is seen at C4-C5, and marked anterior spondylosis is seen at C5-C6 and C6-C7. The posterior elements are intact. There is left neural foraminal narrowing at C3-C4, right neural foraminal narrowing at C5-C6, and bilateral neural foraminal narrowing at C6-C7. The posterior elements are intact. The dens is intact. No prevertebral soft tissue swelling is seen. XR/XR cervical spine 4V IMPRESSION: 1. There is mild degenerative disc disease at C2-C3, and marked degenerative disc disease is seen at C5-C6 and C6-C7. 2. Mild anterior spondylosis is seen at C4-C5, and marked anterior spondylosis is seen at C5-C6 and C6-C7. 3. There is left neural foraminal narrowing at C3-C4, right neural foraminal narrowing at C5-C6, and bilateral neural foraminal narrowing at C6-C7.
== END 2024-01-27 14:02 | disposition home or self-care (01) ==
LOC: HO.HMGCX 14:01
PROVIDERS: PCP Internal Medicine; Visit Provider Nurse Practitioner Family
DX: M85.80 Other specified disorders of bone density and structure, unspecified site (principal); R26.9 Unspecified abnormalities of gait and mobility; R29.818 Other symptoms and signs involving the nervous system
CPT/HCPCS: 72050

== ENCOUNTER 2024-02-08 08:03 | Outpatient (AMB) | payer OTHER, SELFPAY ==
--- OUTSIDE RECORDS SUMMARY | 2024-02-08 08:04 | XMS_ITS | Patient Health Record ---
Author Organization [facility] Address [address] [place] [address] Care Team Providers Care Chief Resource Officer Name Role Phone Saurabh MCKEON, Asma Primary Care Provider Jayson Moran [phone] REASON FOR REFERRAL No Information MEDICATIONS Medication SIG (Take, Route, Fr equency, Duration) Notes Start Date End Date Status Omeprazole 20 MG 1 capsule Orally Once a day Active Sertraline HCl 100 MG TAKE 1 TABLET BY M OUTH EVERY DAY Oral for 90 Active IMMUNIZATIONS Vaccine Route Administration Date Status Comme nts Influenza Unknown 06/11/2020 Administered SOCIAL HISTORY Sex Assigned At : Social History Observation Description Sex Assigned At Unknown PROBLEMS Problem Type ICD Code Onset Dates Problem Status W/U Status Risk SNOMED Code Notes Problem Encounter for screening for malignant neoplasm of colon (Z12.11) Active confirmed Screening for malignant neoplasm of colon (209068898) Problem Preprocedural examination (Z01.818) Active confirmed Preprocedural examination (962269487941596 ) Problem Family history of colon cancer (Z80.0) Active confirmed Family History of Cancer of Colon (Situation) (187896900) PLAN OF TREATMENT Future Test Test Name Order Date COLONOSCOPY 11/28/2014 COLONOSCOPY 08/07/2020 Insurance Providers Payer Name Payer Address Payer Phone Subscriber Number Group Number Insured Name Patient Relationship to Insured Coverage Start Date Coverage End Date [facility] [address] [place] [phone] [id number] [employer] Self - patient is the insured MEDICAL (GENERAL) HISTORY Medical History History ICD Code Neg. colonoscopies in 2002 and 06-11-2010 , except for hyperplastic polyps Denies KS,DM,CVA,Lung disease,renal dise ase GERD--neg. EGD in 2004 except a small HH Neg screening colonoscopy in 06/2015 Anxiety Surgical History Surgery Date(Month/Year) Tonsillectomy
--- NOTE | 2024-02-08 08:07 | AM.OFFWIN_ITS ---
Intake Vital Signs 02/08/24 08:08 Height 5 ft 5 in Weight 123 lb BMI 20.5 BP 122/64 Blood Pressure Location Rt brachial Position Sitting Pulse 74 Pulse Source Pulse Oximeter Temp 98.2 F Temp Source Oral Pulse Oximetry (%) 95 Oxygen Delivery Method Room Air Intake Visit Reasons: EP Back pain Intake Note: Pt presents to the office today for c/o lower back pain. She states she woke up this morning and states her back was hurting. She states she started a new job and states she has been doing a lot of lifting. Patient Tobacco Use Status: Former Tobacco user Quit Date: 2009 Allergies No Known Allergies Allergy (Verified 02/08/24 08:15) HPI HPI Comments History of Present Illness Details Patient presents walk-in today for sick visit Complaining back pain since last night. Worse when she woke up this morning Have been suffering cough, states thinks that back pain is related to the per sistent cough. Cough is nonproductive, denies fever, chest pain, shortness of breath, palpitations. Cough is nonproductive, she has been cough drops and cough medicine Midline lower back pain without radiation down either lower extremity. Denies shooting, stabbing, electrical pain. Denies red flag symptoms including new loss of bowel, bladder or saddle anesthesia Pain worse with sitting, twisting and flexing forward Endorses muscle spasm last night, reports feels better this morning but she is worried that is going to start hurting again PFSH Medical History Osteopenia History of colon polyps Personal history of nicotine dependence Chronic GERD (~2003) Depression with anxiety Surgical History Hx of tonsillectomy Hx of esophagogastroduodenoscopy (~2004) Hx of colonoscopy Family History Father Colon cancer Sister Mental health disorder Social History Housing: Apartment Patient Tobacco Use Status: Former Tobacco user Quit Date: 2009 Tobacco use type: Cigarette Years Smoked: 34 years e-Cigarette/Vaping Use: Never Used Current occupational status: employed Cognitive needs: No Hearing needs: No Vision needs: Yes Review of Systems Const All systems reviewed & are unremarkable except as noted in HPI and below Physical Exam Vital Signs: Last Vital Signs Temp 98.2 F 02/08/24 08:08 Pulse 74 02/08/24 08:08 BP 122/64 02/08/24 08:08 Pulse Ox 95 02/08/24 08:08 Oxygen Delivery Method Room Air 02/08/24 08:08 BMI result Body Mass Index 20.5 General: awake, alert, oriented. Answers questions appropriately. Fully engaged in examination. Skin: warm, dry, intact HEENT: Normocephalic. Hearing intact. Cardiac: External chest normal in appearance. Respiratory: No cough, audible wheezing or stridor. Abdomen: without gross distension. MS: No obvious swelling or deformities. Able to stand on bilateral tiptoes and bilateral heels.? Able to transition from sit to stand unassisted. Ambulates with bilaterally normal heel strike and toe off SLR with dorsiflexion negative bilaterally Bilateral lower extremity strength 5/5 Nontender to palpation midline lumbar vertebrae or lumbar paraspinal muscles Negative footdrop, negative clonus Range of motion intact Neurological: Oriented to person, place, time and situation. Thought process intact. No gait abnormalities appreciated. Psychiatric: Appropriate mood and affect. Good judgment and insight. Assessment & Plan Assessment & Plan (1) Lumbar strain: Code(s): S39.012A - Strain of muscle, fascia and tendon of lower back, initial encounter (2) Cough: Code(s): R05.9 - Cough, unspecified Plan Advised rest, heat, ice. Tylenol and Motrin as needed. Patient encouraged to use Motrin 600 mg 4 times daily for next several days Cyclobenzaprine 5 mg p.o. t.i.d. as needed. Patient advised on cautions for use benzonatate 100 mg p.o. b.i.d. as needed for cough Patient declined a work note Follow up with PCP or return here for any new or worsening symptoms. Medications: New cyclobenzaprine may cause drowsiness, no driving while taking this medication 5 mg PO TID PRN 10 tabs 0RF muscle spasm benzonatate 100 mg PO BID PRN 20 caps 0RF cough Coding Level of Care Code Est Pt Level 3 (81468) Diagnoses Lumbar strain S39.012A Cough R05.9
[2024-02-08 08:08] VITALS: BP 122/64; PULSE 74; TEMP 36.8; O2SAT 95; BMI 20.5
== END 2024-02-08 08:38 | disposition home or self-care (01) ==
PROVIDERS: PCP Internal Medicine; Visit Provider Registered Nurse Emergency
DX: S39.012A Strain of muscle, fascia and tendon of lower back, initial encounter (principal); R05.9 Cough, unspecified
CPT/HCPCS: 99213

== ENCOUNTER 2024-03-21 14:55 | Outpatient (AMB) | payer OTHER, SELFPAY ==
--- NOTE | 2024-03-21 15:28 | A.OFFVIS_ITS ---
Vital Signs 03/21/24 15:31 Height 5 ft 5 in Weight 121 lb 4 oz BMI 20.2 BP 124/66 Blood Pressure Location Rt brachial Position Sitting Pulse 73 Pulse Source Pulse Oximeter Pulse Oximetry (%) 93 Oxygen Delivery Method Room Air Intake Visit Reasons: Symp inv nerv sys/abn gait/mob-CONF Intake Note: Patient presents for abnormal gait. Patient states she has a crackle sound in her ear that comes and goes. Allergies No Known Allergies Allergy (Verified 03/21/24 15:32) Medication List - Last Reconciled 03/21/24 by JAI Waters albuterol sulfate 90 mcg/actuation (ProAir HFA) 1 inh inhalation QID PRN 30 days benzonatate 100 mg PO BID PRN cyclobenzaprine 5 mg PO TID PRN fluticasone propion-salmeterol 500-50 mcg/dose (Advair Diskus) 1 inh inhalation Q12H omeprazole 20 mg PO DAILY 90 days sertraline 150 mg (1.5 x 100 mg) PO DAILY 90 days HPI Comments Details: 63-yr-old female presents for f/u visit. Pt denies any significant interval medical changes. Pt has been noticing a crinkle sound from left ear- after showering. No pain, swelling. States tremor and gait are stable. Denies shooting neck apin. Sometimes an area of her mid-back may feel numb to the touch. She continues to work linda physically active job. XR- C-spine showed- multilevel degenerative changes. 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 Small mastoid effusions and mild paranasal sinus mucosal thickening. [facility] Medical History Osteopenia History of colon polyps Personal history of nicotine dependence Chronic GERD (~2003) Depression with anxiety Surgical History Hx of tonsillectomy Hx of esophagogastroduodenoscopy (~2004) Hx of colonoscopy Family History Father Colon cancer Sister Mental health disorder Social History Housing: Apartment Patient Tobacco Use Status: Former Tobacco user Tobacco use type: Cigarette Years Smoked: 34 years e-Cigarette/Vaping Use: Never Used Current occupational status: employed Cognitive needs: No Hearing needs: No Vision needs: Yes Review of Systems Const All systems reviewed & are unremarkable except as noted in HPI and below Physical Exam Vital Signs: Last Vital Signs Pulse 73 03/21/24 15:31 BP 124/66 03/21/24 15:31 Pulse Ox 93 03/21/24 15:31 Oxygen Delivery Method Room Air 03/21/24 15:31 BMI result Body Mass Index 20.2 Const General: cooperative and no acute distress Orientation/consciousness: patient oriented x3 HEENT Ears: hearing grossly normal bilaterally, external ears normal and unable to visualize TM (d/t 80-90% wax occlusion) on the left Resp Effort & Inspection: normal respiratory effort and able to speak in complete se ntences Neuro Other: Mild lower facial asymmetry. Fine finger movements: Just slightly slow. Foot taps: Slightly decreased Tone: No appreciable tone. Tandem: Improved Romberg: Slight sway, no full loss of balance. Gait: Arm swing intact, steady gait. General: patient oriented x3 Cognition (Neuro): normal cognition Motor exam (neuro): 5/5 motor strength present throughout Psych Appearance: grossly normal Mental Status: mental status grossly normal Speech and movement: Normal speech and movement present Affect: normal affect Attitude: cooperative Thought process: Normal thought process present Thought content: Normal thought content present Insight: Good insight present (Psych) Judgement: Good judgement present (Psych) Results Reviewed Results Reviewed: 01/27/24, XR/XR cervical spine 4V IMPRESSION: 1. There is mild degenerative disc disease at C2-C3, and marked degenerative disc disease is seen at C5-C6 and C6-C7. 2. Mild anterior spondylosis is seen at C4-C5, and marked anterior spondylosis is seen at C5-C6 and C6-C7. 3. There is left neural foraminal narrowing at C3-C4, right neural foraminal narrowing at C5-C6, and bilateral neural foraminal narrowing at C6-C7. 01/22/34, MR BRAIN WITHOUT CONTRAST CLINICAL INFORMATION: 63-year-old with unspecified abnormalities of gait and mobility. COMPARISON: None available. TECHNIQUE: MRI of the brain was obtained using routine sequences without contrast. FINDINGS: Brain Volume: [id number] generalized diffuse parenchymal volume loss within the limitations of qualitative assessment. Structural: No malformations. Brain and Meninges: DWI sequence demonstrates no restricted diffusion to suggest acute or subacute cerebral ischemia. There are scattered small patchy zones of FLAIR/T2 signal hyperintensity in the subcortical and deeper white matter of both cerebral hemispheres, which are nonspecific findings, but could reflect chronic ischemic microangiopathy. There are patchy/confluent regions of FLAIR/T2 signal hyperintensity on both sides of the gene also likely reflecting chronic ischemic microangiopathy. There is a mild degree of gradient refocused imaging demonstrates no abnormal susceptibility-weighted signal loss to suggest hemorrhage, hemosiderin staining or abnormal mineralization at the level of the basal ganglia and thalami. Refocused imaging demonstrates no abnormal susceptibility-weighted signal loss to suggest hemorrhage, hemosiderin staining or abnormal mineralization. No extra-axial fluid collections, space-occupying process or mass effect are identified. Ventricles and Subarachnoid Spaces: The ventricular system and subarachnoid spaces are within normal range; there is no hydrocephalus. Orbital Structures: The visualized orbital structures are grossly unremarkable within the limitations of the study. Vascular: Signal voids are noted in the visualized major intracranial vessels. Osseous Structures, Sinuses/Mastoids, Extracranial Soft Tissues: Osseous marrow signal intensity appears grossly within normal limits. There are minor degrees of mucosal thickening in the ethmoid complex and a small retention cyst in the right maxillary sinus. There is some fluid in the right mastoid near the right mastoid tip and to a lesser degree in the left mastoid tip. MR/MR head/brain wo con IMPRESSION: 1. 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 2. No acute intracranial process. No evidence for infarction, hemorrhage, extra-axial fluid collection, space-occupying process, mass effect or hydrocephalus. 3. Small mastoid effusions and mild paranasal sinus mucosal thickening. Assessment & Plan Assessment & Plan (1) White matter abnormality on MRI of brain: Code(s): R90.82 - White matter disease, unspecified Category: Medical Plan Reviewed C-spine x-ray multilevel mild to marked degenerative changes. Pt denies shooting neck pain ir UE weakness/paresthesias. Will monitor, consider c-spine MRI, EMG/NCS, PT if s/s new s/s develop. 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 Pt's recent total CHO- 224 H. BP normotensive. No known h/o diabetes. Last fasting glucose 105 H. Pt has h/o alcohol and tobacco use- no longer using. Pt is physically active at work. Will check HgA1C, ESR, CRP. Consider f/u brain MRI in 1-2 yrs to assess white matter lesion burden. For left ear wax build-up- May try OTC debrox and irrigation-. f/u in 6 months or sooner prn. Orders: Orders CRP High Sensitivity Today E78.9 - Disorder of lipoprotein metabolism, unspecified Erythrocyte Sedimentation Rate Today E78.9 - Disorder of lipoprotein metabolism, unspecified Hemoglobin A1c Today E78.9 - Disorder of lipoprotein metabolism, unspecified, R73.9 - Hyperglycemia, unspecified, R90.82 - White matter disease, unspecified Coding Level of Care Code Est Pt Level 4 (19510) Diagnoses White matter abnormality on MRI of brain R90.82
[2024-03-21 15:31] VITALS: BP 124/66; PULSE 73; O2SAT 93; BMI 20.2
== END 2024-03-21 16:25 | disposition home or self-care (01) ==
PROVIDERS: PCP Internal Medicine; Visit Provider Nurse Practitioner Family
DX: R90.82 White matter disease, unspecified (principal)
CPT/HCPCS: 99214

== ENCOUNTER → 2024-03-21 14:55 | Outpatient (BNVA) | payer OTHER, SELFPAY | PROVIDERS: PCP Internal Medicine; Visit Provider Nurse Practitioner Family ==

== ENCOUNTER 2024-04-15 14:00 | Outpatient (REF) | payer OTHER, SELFPAY ==
[2024-04-15 16:19] LABS: Estimated Average Glucose 111 mg/dL; Hemoglobin A1c % 5.5 % (<6.0)
[2024-04-15 17:01] LABS: Erythrocyte Sedimentation Rate 7 MM/HR (0-20)
[2024-04-18 09:03] LABS: CRP High Sensitivity 1.4 mg/L
== END 2024-04-15 14:01 | disposition home or self-care (01) ==
LOC: HO.HMGCLDS 14:00
PROVIDERS: PCP Internal Medicine; Visit Provider Nurse Practitioner Family
DX: E78.9 Disorder of lipoprotein metabolism, unspecified (principal); R73.9 Hyperglycemia, unspecified; R90.82 White matter disease, unspecified
CPT/HCPCS: 36415; 83036; 85652; 86141

== ENCOUNTER 2024-05-27 08:54 | Outpatient (AMB) | payer OTHER, SELFPAY ==
[2024-05-27 08:56] VITALS: BP 126/72; PULSE 60; O2SAT 94; BMI 20.1
--- NOTE | 2024-05-27 08:56 | MHC.PC.OV ---
Vital Signs 05/27/24 08:56 Height 5 ft 5 in Weight 120 lb 8 oz BMI 20.1 BP 126/72 Blood Pressure Location Lt brachial Position Sitting Pulse 60 Pulse Source Pulse Oximeter Pulse Oximetry (%) 94 Oxygen Delivery Method Room Air Intake Visit Reasons: PE Allergies No Known Allergies Allergy (Verified 05/27/24 08:56) Medication List - Last Reconciled 05/27/24 by Yvette Wiley MD albuterol sulfate 90 mcg/actuation (ProAir HFA) 1 inh inhalation QID PRN 30 days omeprazole 20 mg PO DAILY 90 days sertraline 150 mg (1.5 x 100 mg) PO DAILY 90 days Tobacco use date assessed: 05/27/24 Fall risk assessment: No Falls in past year Last assessed Fall Risk: 05/27/24 Dental Screening Dental Screen Date: 05/27/24 Did you have a dental visit in the last 12 months?: Yes Did you have a dental problem in the last 6 months where you did not have access to dental care?: No Was dental information given to patient?: Patient has dentist HPI PE HPI Details Patient is a 63-year-old female came in today for physical examination Patient is doing well offer no complaints Anxiety/depression is stable, patient is sertraline 150 mg daily, no side effects GERD symptoms are controlled With omeprazole mammogram was November of this year Colonoscopy will be due next year by Dr. Crispin DONATO is at [facility], breast exams through them. Patient had impaired fasting sugar in December, recently she had hemoglobin A1c done through neurology which was 5.5. Blood pressure is stable BMI is stable Patient will return in 6 months follow-up appointment [facility] Medical History Osteopenia History of colon polyps Personal history of nicotine dependence Chronic GERD (~2003) Depression with anxiety Surgical History Hx of tonsillectomy Hx of esophagogastroduodenoscopy (~2004) Hx of colonoscopy Family History Father Colon cancer Sister Mental health disorder Social History Housing: Apartment Patient Tobacco Use Status: Former Tobacco user Tobacco use type: Cigarette Years Smoked: 34 years e-Cigarette/Vaping Use: Never Used Current occupational status: employed Cognitive needs: No Hearing needs: No Vision needs: Yes Questionnaire Thrive Questionnaire Date Thrive assessed: 05/27/24 I am a: Patient What is your living situation today?: I have a steady place to live Within the past 12 months, did the food you bought not last and you didn't have the money to get more?: Never true Within the past 12 months, did you worry whether your food would run out before you got money to buy more?: Never true Do you have trouble paying for medicines?: No Do you have trouble getting transportation to medical appointments?: No Do you have trouble paying your heating and electricity bill?: No Do you have trouble taking care of your child, family member or friend?: No Do you have trouble with day-to-day activities such as bathing, preparing meals, shopping, managing finances, etc.?: No Are you currently unemployed and looking for a job?: No Are you interested in more education?: No Please select the resources that you would like help with: None Currently or been in a relationship where the following occur: No concerns reported THRIVE Score: 0 AUDIT C Alcohol Use Questionnaire (AUDIT-C) 1. How often do you have a drink containing alcohol?: 2-4 times a month 2. How many drinks containing alcohol do you have on a typical day when you are drinking?: 1 or 2 3. How often do you have six or more drinks on one occasion?: Never Total Score: 2 Score Reviewed/Action Taken: Yes BESSIE-7 AMB Questionnaire BESSIE-7 Date BESSIE - 7 assessed: 05/27/24 Feeling nervous, anxious, or on edge: 0 = Not at all Not being able to stop or control worryin = Not at all Worrying too much about different things: 0 = Not at all Trouble relaxin = Not at all Being so restless that it is hard to sit still: 0 = Not at all Becoming easily annoyed or irritable: 0 = Not at all Feeling afraid as if something awful might happen: 0 = Not at all Total BESSIE-7 score (0-4 normal; 5-9 mild; 10-14 moderate; 15-21 severe): 0 Source: Developed by Drs. Jayson Melo, Erika Garcia, Godfrey Vargas and colleagues, with an educational mara from [employer]. BESSIE-7 Assessment Billing BESSIE-7 Assessment Tool: BESSIE-7 Assessment 61698 Review of Systems Const Denies chills, Denies fever(s) and Denies headache(s) Eyes Denies blurry vision ENT Denies headache(s), Denies nasal discharge, Denies nasal obstruction, Denies odynophagia and Denies sinus pain Card Denies chest pain at rest and Denies chest pain with activity Resp Denies cough and Denies hemoptysis GI Denies diarrhea, Denies odynophagia, Denies vomiting and Denies hematemesis Reports as per HPI Musc Denies abnormal gait Skin/Breast Reports as per HPI Neuro Denies Neuro-related abnormal movements, Denies Abnormal speech present, Denies abnormal gait, Denies headache(s) and Denies Sensory deficit (Neuro) Psych Denies mood swings and Denies paranoia Endo Reports as per HPI Kanu/Lymph Reports as per HPI Aller/Immun Reports as per HPI Physical exam (Primary Care) Vital Signs: Last Vital Signs Pulse 60 05/27/24 08:56 BP 126/72 05/27/24 08:56 Pulse Ox 94 05/27/24 08:56 Oxygen Delivery Method Room Air 05/27/24 08:56 BMI result Body Mass Index 20.1 Tobacco/Smoking Status: Tobacco use Status Tobacco use date assessed 05/27/24 05/27/24 09:00 Patient Tobacco Use Status Former Tobacco user 05/27/24 09:00 Tobacco use type Cigarette 05/27/24 09:00 e-Cigarette/Vaping Use Never Used 05/27/24 09:00 Thrive Assessment: Date of Thrive Assessment Date Thrive assessed 05/27/24 05/27/24 09:00 Currently or been in a relationship where the following occur: No concerns reported Const General: cooperative, comfortable and no acute distress Orientation/consciousness: patient oriented x3 HENMT Head: Yes normocephalic and Yes atraumatic Eyes General: appearance normal, both eyes and all related structures Pupils: Equal, round and reactive pupils present EOM: EOMs intact bilaterally Neck Neck: Yes supple and No lymphadenopathy Thyroid: Thyroid normal Lymphatic: no lymphadenopathy noted Resp Effort & Inspection: normal respiratory effort and able to speak in complete sentences Auscultation: clear to auscultation bilaterally Cardio Heart sounds: S1 normal heart sound present and S2 normal heart sound present GI Palpation (GI): Soft to palpation and nontender Auscultation: normal bowel sounds General: Yes no CVA tenderness Back/Spine/Pelvis Back: no CVA tenderness Skin General skin exam: elasticity normal and turgor normal Neuro General: patient oriented x3 and gait normal Cranial nerves: Yes Equal, round and reactive pupils present Speech: No Abnormal speech present Sensory Exam: No Sensory deficit (Neuro) Coordination: tandem gait normal and Romberg test negative Extrem General: Yes normal exam except as noted and No edema Assessment and Plan Assessment & Plan (1) Physical exam, annual: Code(s): Z00.00 - Encounter for general adult medical examination without abnormal findings (2) Chronic GERD: Onset Date: ~2003 Code(s): K21.9 - Gastro-esophageal reflux disease without esophagitis (3) Osteopenia: Comment: (Bone Dexa - T Score -2.0 femoral neck, 03/17/2019) Code(s): M85.80 - Other specified disorders of bone density and structure, unspecified site Qualifiers: Osteopenia location: unspecified Qualified Code(s): M85.80 - Other specified disorders of bone density and structure, unspecified site (4) Depression with anxiety: Code(s): F41.8 - Other specified anxiety disorders (5) Impaired fasting blood sugar: Code(s): R73.01 - Impaired fasting glucose (6) Intermittent asthma: Code(s): J45.20 - Mild intermittent asthma, uncomplicated Qualifiers: Asthma severity: mild Asthma complication type: uncomplicated Qualified Code(s): J45.20 - Mild intermittent asthma, uncomplicated Plan Patient is a 63-year-old female came in today for physical examination Patient is doing well offer no complaints Anxiety/depression is stable, patient is sertraline 150 mg daily, no side effects GERD symptoms are controlled With omeprazole mammogram was November of this year Colonoscopy will be due next year by Dr. Crispin DONATO is at [facility], breast exams through them. Patient had impaired fasting sugar in December, recently she had hemoglobin A1c done through neurology which was 5.5. Blood pressure is stable BMI is stable Patient will return in 6 months follow-up appointment Medications: Discontinued fluticasone propion-salmeterol 500-50 mcg/dose (Advair Diskus) rise your mouth after use Discontinued Reason: Doctor's Order 1 inh inhalation Q12H 60 ea 2RF Coding Level of Care Code Est Pt Prev Care 40-64y(42488) Diagnoses Physical exam, annual Z00.00 Chronic GERD K21.9 Osteopenia, unspecified location M85.80 Osteopenia location: unspecified Depression with anxiety F41.8 Impaired fasting blood sugar R73.01 Mild intermittent asthma without complication J45.20 Asthma severity: mild Asthma complication type: uncomplicated Additional Codes BESSIE-7 Assessment Billing - BESSIE-7 Assessment Tool: BESSIE-7 Assessment [id number] ([id number])
== END 2024-05-27 09:25 | disposition home or self-care (01) ==
PROVIDERS: PCP Internal Medicine; Visit Provider Internal Medicine
DX: Z00.00 Encounter for general adult medical examination without abnormal findings (principal); K21.9 Gastro-esophageal reflux disease without esophagitis; M85.80 Other specified disorders of bone density and structure, unspecified site; F41.8 Other specified anxiety disorders; R73.01 Impaired fasting glucose; J45.20 Mild intermittent asthma, uncomplicated
CPT/HCPCS: 99396

== ENCOUNTER 2024-08-01 14:57 | Outpatient (AMB) | payer MEDICARE, MEDICAID, SELFPAY ==
--- NOTE | 2024-08-01 14:59 | AM.OFFWIN_ITS ---
Intake Vital Signs 08/01/24 15:05 Height 5 ft 5 in Weight 123 lb BMI 20.5 BP 128/70 Blood Pressure Location Lt brachial Position Sitting Pulse 68 Pulse Source Pulse Oximeter Pulse Oximetry (%) 92 Oxygen Delivery Method Room Air Intake Visit Reasons: EP-lt arm burning sensation & finger pins, needles Intake Note: Patient here for pins and needles in right fingers. Patient Tobacco Use Status: Former Tobacco user Allergies No Known Allergies Allergy (Verified 08/01/24 15:06) Do you need a note to return to daycare/school/sports/work: No HPI HPI Comments History of Present Illness Details Patient is a 64-year-old female complaining of tingling in the tips of her fingers of her left hand that comes and goes and only lasts for a minute or two. She states that nothing seems to provoke it, nothing seems to make it better or worse. She states she is not diabetic. She denies any loss of strength or sensation in her fingertips. She does tell me she has tendinitis in both elbows but she says the numbness and tingling does not extend from her fingertips to her elbows. She tells me she wears a brace on both elbows when she is working and she usually takes Tylenol before work. 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 [facility] Medical History Osteopenia History of colon polyps Personal history of nicotine dependence Chronic GERD (~2003) Depression with anxiety Surgical History Hx of tonsillectomy Hx of esophagogastroduodenoscopy (~2004) Hx of colonoscopy Family History Father Colon cancer Sister Mental health disorder Social History Housing: Apartment Patient Tobacco Use Status: Former Tobacco user Tobacco use type: Cigarette Years Smoked: 34 years e-Cigarette/Vaping Use: Never Used Current occupational status: employed Cognitive needs: No Hearing needs: No Vision needs: Yes Review of Systems Const All systems reviewed & are unremarkable except as noted in HPI and below Physical Exam Vital Signs: Last Vital Signs Pulse 68 08/01/24 15:05 BP 128/70 08/01/24 15:05 Pulse Ox 92 08/01/24 15:05 Oxygen Delivery Method Room Air 08/01/24 15:05 BMI result Body Mass Index 20.5 Const General: cooperative, healthy appearing, comfortable, no acute distress and well developed Orientation/consciousness: patient oriented x3 Limitations: no limitations HEENT Head: Yes normal to inspection Ears: hearing grossly normal bilaterally General nose exam: Normal external nose present Face and sinus: Yes normal facial exam Eyes General: appearance normal, both eyes and all related structures Neck Neck: Yes normal visual inspection and Yes full ROM Resp Effort & Inspection: normal respiratory effort and able to speak in complete sentences Skin General skin exam: no rashes or lesions noted Neuro General: patient oriented x3 Extrem Left upper extremity: wrist (normal ROM) and hand Details: normal to inspection, normal capillary refill, neuromotor exam normal, neurosensory exam normal, vascular exam Details: normal capillary refill, normal ROM of fingers and no swelling; no tenderness, no unusual warmth, no abrasions, no lacerations and no ecchymosis Assessment & Plan Assessment & Plan (1) Numbness and tingling in left hand: Comment: Fingertips only Code(s): R20.0 - Anesthesia of skin; R20.2 - Paresthesia of skin Plan: Numbness and tingling is just in the pads of her fingertips, no history of diabetes, physical exam completely unremarkable. Upon review of patient's records, C-spine x-ray multilevel mild to marked degenerative changes. Pt denied shooting neck pain ir UE weakness/paresthesias at the time she met with Neurology in March 2024. Also has white matter changes in MRI. Recommended she tried to use Aleve prior to working to see if that helps reduce her symptoms. She should follow up with her PCP if no improvement in her symptoms or if they get worse. Spoke with PCP's MA to get patient a follow up appointment. Plan See above Coding Level of Care Code Est Pt Level 3 (43798) Diagnoses Numbness and tingling in left hand R20.0; R20.2
--- OUTSIDE RECORDS SUMMARY | 2024-08-01 14:59 | XMS_ITS | Patient Health Record ---
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 Name Role Phone Saurabh MCKEON, Asma Primary Care Provider Jayson Moran [phone] REASON FOR REFERRAL No Information MEDICATIONS Medication [...] confirmed Screening for malignant neoplasm of colon (745096788) Problem Preprocedural examination (Z01.818) Active confirmed Preprocedural examination (381183570799920 ) Problem Family history of colon cancer (Z80.0) Active confirmed Family History of Cancer of Colon (Situation) (316334853) PLAN OF TREATMENT Future Test Test Name Order Date COLONOSCOPY 11/28/2014 COLONOSCOPY 08/07/2020 Insurance Providers Payer Name Payer Address Payer Phone Subscriber Number Group Number Insured Name Patient Relationship to Insured Coverage Start Date Coverage End Date [facility] [address] [place] [phone] [id number] CAMERON BABB Self - patient is the insured MEDICAL (GENERAL) HISTORY Medical History History ICD Code Neg. colonoscopies in 2002 and 06-11-2010 , except for hyperplastic polyps Denies MA,DM,CVA,Lung disease,renal dise ase GERD--neg. EGD in 2004 except a small HH Neg screening colonoscopy in 06/2015 Anxiety Surgical History Surgery Date(Month/Year) Tonsillectomy
[2024-08-01 15:05] VITALS: BP 128/70; PULSE 68; O2SAT 92; BMI 20.5
== END 2024-08-01 15:33 | disposition home or self-care (01) ==
PROVIDERS: PCP Internal Medicine; Visit Provider Physician Assistant
DX: R20.0 Anesthesia of skin (principal); R20.2 Paresthesia of skin

== ENCOUNTER → 2024-08-01 14:57 | Outpatient (BNVA) | payer MEDICARE, MEDICAID, SELFPAY | PROVIDERS: PCP Internal Medicine; Visit Provider Physician Assistant | DX: R20.0 Anesthesia of skin (principal); R20.2 Paresthesia of skin | CPT/HCPCS: 99212 ==

== ENCOUNTER 2024-08-19 14:46 | Outpatient (AMB) | payer MEDICARE, MEDICAID, SELFPAY ==
--- NOTE | 2024-08-19 14:47 | MHC.PC.OV ---
Vital Signs 08/19/24 14:50 Height 5 ft 5 in Weight 124 lb 2 oz BMI 20.7 BP 124/72 Blood Pressure Location Lt brachial Position Sitting Pulse 61 Pulse Source Pulse Oximeter Pulse Oximetry (%) 92 Oxygen Delivery Method Room Air Intake Visit Reasons: Follow Up Walk-in Allergies No Known Allergies Allergy (Verified 08/01/24 15:06) Medication List - Last Reconciled 08/19/24 by Yvette Wiley MD albuterol sulfate 90 mcg/actuation (ProAir HFA) 1 inh inhalation QID PRN 30 days omeprazole 20 mg PO DAILY 90 days sertraline 150 mg (1.5 x 100 mg) PO DAILY 90 days Tobacco use date assessed: 05/27/24 Dental Screening Dental Screen Date: 05/27/24 HPI Follow Up Walk-in HPI Details Patient was seen in walk-in clinic few days ago when she came in with a chief complaint of paresthesia the tip of her right hand She was booked appointment with to further evaluate that Patient says that it has resolved She was started on Advair inhaler, which did help her and she is feeling much better However patient says that it is difficult for her to take inhaler 2 times a day She want to be switched to an inhaler that she takes only once a day I switched her to Breo inhaler If there is any problem picking up the inhaler due to insurance problem She will get back to me. [facility] Medical History Osteopenia History of colon polyps Personal history of nicotine dependence Chronic GERD (~2003) Depression with anxiety Surgical History Hx of tonsillectomy Hx of esophagogastroduodenoscopy (~2004) Hx of colonoscopy Family History Father Colon cancer Sister Mental health disorder Social History Housing: Apartment Patient Tobacco Use Status: Former Tobacco user Tobacco use type: Cigarette Years Smoked: 34 years e-Cigarette/Vaping Use: Never Used Current occupational status: employed Cognitive needs: No Hearing needs: No Vision needs: Yes Questionnaire Thrive Questionnaire Date Thrive assessed: 05/20/24 I am a: Patient What is your living situation today?: I have a steady place to live Within the past 12 months, did the food you bought not last and you didn't have the money to get more?: Never true Within the past 12 months, did you worry whether your food would run out before you got money to buy more?: Never true Do you have trouble paying for medicines?: No Do you have trouble getting transportation to medical appointments?: No Do you have trouble paying your heating and electricity bill?: No Do you have trouble taking care of your child, family member or friend?: No Do you have trouble with day-to-day activities such as bathing, preparing meals, shopping, managing finances, etc.?: No Are you currently unemployed and looking for a job?: No Are you interested in more education?: No Please select the resources that you would like help with: None THRIVE Score: 0 BESSIE-7 AMB Questionnaire BESSIE-7 Date BESSIE - 7 assessed: 05/27/24 Source: Developed by Drs. Jayson Melo, Erika Garcia, Godfrey Vargas and colleagues, with an educational mara from [employer]. Review of Systems Const Denies chills and Denies fever(s) ENT Denies epistaxis and Denies nasal discharge Card Denies chest pain Resp Denies chest congestion, Denies cough and Denies hemoptysis GI Denies diarrhea and Denies nausea Skin/Breast Denies rash Neuro Reports no additional complaints Psych Reports no additional complaints Endo Reports no additional complaints Physical exam (Primary Care) Vital Signs: Last Vital Signs Pulse 61 08/19/24 14:50 BP 124/72 08/19/24 14:50 Pulse Ox 92 08/19/24 14:50 Oxygen Delivery Method Room Air 08/19/24 14:50 BMI result Body Mass Index 20.7 Tobacco/Smoking Status: Tobacco use Status Tobacco use date assessed 05/27/24 08/19/24 14:49 Patient Tobacco Use Status Former Tobacco user 08/19/24 14:49 Tobacco use type Cigarette 08/19/24 14:49 e-Cigarette/Vaping Use Never Used 08/19/24 14:49 Thrive Assessment: Date of Thrive Assessment Date Thrive assessed 05/20/24 08/19/24 14:49 Const General: cooperative, comfortable and no acute distress Orientation/consciousness: patient oriented x3 HENMT Head: Yes normocephalic Eyes General: appearance normal, both eyes and all related structures Neck Neck: Yes supple Resp Effort & Inspection: normal respiratory effort, no cough and no stridor Cardio Rhythm: regular rhythm Heart sounds: S1 normal heart sound present and S2 normal heart sound present Skin General skin exam: turgor normal Neuro General: patient oriented x3, tone normal and moves all extremities Extrem Right lower extremity: no edema Left lower extremity: no edema Coding Level of Care Code Est Pt Level 3 (86563) Diagnoses Asthma-COPD overlap syndrome J44.89 Assessment & Plan Assessment & Plan (1) Asthma-COPD overlap syndrome: Code(s): J44.89 - Other specified chronic obstructive pulmonary disease Category: Medical Plan Patient was seen in walk-in clinic few days ago when she came in with a chief complaint of paresthesia the tip of her right hand She was booked appointment with to further evaluate that Patient says that it has resolved She was started on Advair inhaler, which did help her and she is feeling much better However patient says that it is difficult for her to take inhaler 2 times a day She want to be switched to an inhaler that she takes only once a day I switched her to Breo inhaler If there is any problem picking up the inhaler due to insurance problem She will get back to me. Medications: New Breo Ellipta 200-25 mcg/dose (fluticasone furoate-vilanterol) 1 inh inhalation DAILY 28 ea 1RF 30 days NS
[2024-08-19 14:50] VITALS: BP 124/72; PULSE 61; O2SAT 92; BMI 20.7
== END 2024-08-19 15:09 | disposition home or self-care (01) ==
PROVIDERS: PCP Internal Medicine; Visit Provider Internal Medicine
DX: J44.89 Other specified chronic obstructive pulmonary disease (principal)

== ENCOUNTER → 2024-08-19 14:46 | Outpatient (BNVA) | payer MEDICARE, MEDICAID, SELFPAY | PROVIDERS: PCP Internal Medicine; Visit Provider Internal Medicine | DX: J44.89 Other specified chronic obstructive pulmonary disease (principal) | CPT/HCPCS: 99212 ==

== ENCOUNTER 2024-08-25 07:04 | Emergency (ER) | payer OTHER, MEDICARE, MEDICAID, SELFPAY ==
--- NOTE | ~2024-08-25 | XR_ITS ---
EXAMINATION: XR HAND, LEFT CLINICAL INFORMATION: Pain and swelling COMPARISON: None available. TECHNIQUE: PA, lateral, and oblique views of the left hand. FINDINGS: No acute cortical disruption or malalignment. No lytic or blastic lesions. No subcutaneous emphysema. No metallic or radiopaque foreign body. Tiny calcifications at the radial and ulnar aspect of the distal interphalangeal joints of the second and third digits. XR/XR hand LT 2V IMPRESSION: Consider calcific periarthritis, second and third digits. Alternative diagnosis of calcific tendinitis versus CPPD among other etiologies.. Electronically signed by: Vinicio Wan MD 08/25/2024 07:42 AM DANNIELLE
[2024-08-25 07:07] VITALS: BP 163/54; PULSE 53; RESP 16; TEMP 35.9; O2SAT 96; BMI 20.8
--- NOTE | 2024-08-25 09:28 | ED_ITS ---
HPI - Extremity Problem General Chief complaint: Extremity Problem Stated complaint: fall at work-l hand inj Time Seen by Provider: 08/25/24 09:02 Source: patient Mode of arrival: ambulatory Limitations: no limitations History of Present Illness ED Provider: Gigi Mccormack PA-C HPI Narrative: 64 year old left hand dominant female with a history of asthma/COPD presents to the ER for evaluation of left wrist and hand pain s/p fall on an outstretched hand yesterday while at work. She states she tripped and fell with her left hand out. She said her hand made a slapping sound when it hit the floor. She has had pain in her distal wrist and left hand since. She had today she woke up with swelling of her left hand on the dorsal side. She has pain with extension and flexion. No numbness or tingling. No open wounds. No forearm pain or elbow pain. Complaint: extremity pain Onset (ago): day(s) Pain Consistency: constant Location: left and upper extremity Severity scale (1-10): 5 Quality: aching Radiation: none Relieving factors: rest Exacerbating factors: range of motion and palpation Associated symptoms: denies other symptoms Related Data Previous Rx's ?Medication ?Instructions ?Recorded albuterol sulfate 90 mcg/actuation 1 inh inhalation QID PRN shortness 12/21/23 aerosol inhaler (ProAir HFA) of breath or wheezing 30 days #18 grams sertraline 100 mg tablet 150 mg (1.5 x 100 mg) PO DAILY 90 07/25/24 days #135 tabs omeprazole 20 mg capsule,delayed 20 mg PO DAILY 90 days #90 caps 08/18/24 release Breo Ellipta 200 mcg-25 mcg/dose 1 inh inhalation DAILY 30 days #28 08/19/24 powder for inhalation (fluticasone ea furoate-vilanterol) Allergies Allergy/AdvReac Type Severity Reaction Status Date / Time No Known Allergies Allergy Verified 08/25/24 07:08 Review of Systems Review of Systems: Yes all other systems are reviewed and are negative PMFSH Past Medical History Medical History Osteopenia History of colon polyps Personal history of nicotine dependence Chronic GERD (~2003) Depression with anxiety Surgical History Hx of tonsillectomy Hx of esophagogastroduodenoscopy (~2004) Hx of colonoscopy Family History Family History Father Colon cancer Sister Mental health disorder Social History Social History Housing: Apartment Alcohol intake: current Alcohol intake frequency: holidays/special occasions only Patient Tobacco Use Status: Former Tobacco user Tobacco use type: Cigarette Years Smoked: 34 years Smoked in Last 30 Days: No e-Cigarette/Vaping Use: Never Used Use of substances other than those prescribed or required for medical reasons: No Advance Directives: Yes Advance Directives Information Provided: Yes Advance Directives on File: No Current occupational status: employed Cognitive needs: No Hearing needs: No Vision needs: Yes Physical Exam Vital Signs: Vital Signs: Last Vital Signs Temp 96.6 F L 08/25/24 07:07 Pulse 53 08/25/24 07:07 Resp 16 08/25/24 07:07 BP 163/54 H 08/25/24 07:07 Pulse Ox 96 08/25/24 07:07 O2 Del Method Room Air 08/25/24 07:07 BMI result Body Mass Index 20.8 Appearance: Alert. Oriented X3. No acute distress. HEENT: normal inspection CVS: Normal heart rate and rhythm. Pulses normal. Respiratory: No respiratory distress. Skin: Skin warm and dry. Normal skin color. Normal skin turgor. No rashes. Extremities: Dorsum of the left hand is mildly swollen, mild erythema, no warmth. Minimal tenderness to palpation of the proximal 5th metacarpal. Nontender ulnar styloid. Pain with flexion of the wrist and hyperextension of the wrist. Full range of motion, limited however with pain. Equal hand grasp bilaterally. Neurovascularly intact distally Neuro: Oriented X 3. No motor deficit. No sensory deficit. Medical Decision Making Medical Decision Making MDM Narrative: 64-year-old left-hand dominant female presents to the ER for evaluation of left wrist and hand pain after FOOSH yesterday. Mild swelling and tenderness on exam. Pain with flexion and extension. No point tenderness. X-ray was done which was reviewed. No evidence of acute fracture. She does have some incidental findings of tiny calcifications at the distal IP joints of the 2nd and 3rd digits. Patient most likely suffering from a wrist sprain. No evidence of fracture on imaging today. Will place in a velcro wrist splint for support and comfort. We discussed rest, ice, elevation, compression, supportive care and outpatient follow-up. She is stable for discharge. Differential Diagnosis Differential Diagnoses: The differential diagnosis associated with the presentation includes Hand fracture, wrist fracture, wrist sprain, calcific tendinitis Independent Interpretation I performed an independent interpretation of an: Plain X-Ray Interpretation: No acute fracture of the distal wrist or hand Radiology Impression Discussion of test interpretation with radiology: I have reviewed the radiologist's reading. Radiologist Impression: CLINICAL INFORMATION: Pain and swelling COMPARISON: None available. TECHNIQUE: PA, lateral, and oblique views of the left hand. FINDINGS: No acute cortical disruption or malalignment. No lytic or blastic lesions. No subcutaneous emphysema. No metallic or radiopaque foreign body. Tiny calcifications at the radial and ulnar aspect of the distal interphalangeal joints of the second and third digits. XR/XR hand LT 2V IMPRESSION: Consider calcific periarthritis, second and third digits. Alternative diagnosis of calcific tendinitis versus CPPD among other etiologies.. External Record Review External record reviewed: Outpatient record, Prior outpatient labs and Prior outpatient radiology Prescription Management I considered prescription management with: Pain Medication Critical Care Time Critical Care Time Critical Care Time: No Discharge Plan Discharge Clinical Impression: Left wrist sprain Qualifiers: Encounter type: initial encounter Qualified Code(s): S63.502A - Unspecified sprain of left wrist, initial encounter Patient Disposition: Home, Self-Care Instructions: Wrist Sprain (ED) Additional Instructions: Your x-ray today did not show any fractures. Rest your hand/wrist when possible. Limit use and lifting. Recommend wearing the provided wrist splint at all times except for when bathing. Wear it at night as well. Use ice several times per day for the next 48 hours. Take Motrin and/or Tylenol as needed for pain. Follow up with your doctor as needed. Follow-up with [facility] if you need clearance to return to work. Name and number below. If you develop new or worsening symptoms call 911 or come back to the ER for further evaluation. Prescriptions: No Action albuterol sulfate [ProAir HFA] 90 mcg/actuation HFA aerosol inhaler 1 inh inhalation QID PRN (Reason: shortness of breath or wheezing) 30 Days Qty: 18 5RF sertraline 100 mg tablet 150 mg PO DAILY 90 Days Qty: 135 0RF omeprazole 20 mg capsule,delayed release(DR/EC) 20 mg PO DAILY 90 Days Qty: 90 1RF fluticasone furoate-vilanterol [Breo Ellipta] 200-25 mcg/dose blister with device 1 inh inhalation DAILY 30 Days Qty: 28 1RF Referrals: [facility] [Provider Group] (left wrist injury s/p fall at work 08/24) Yvette Wiley MD [Primary Care Provider] - Stand Alone Forms: Work/School Release Print Language: Burkinan
[2024-08-25 09:46] VITALS: BP 163/54; PULSE 53; RESP 18; TEMP 35.9; O2SAT 97
== END 2024-08-25 09:47 | disposition home or self-care (01) ==
PROVIDERS: Emergency Provider Student in an Organized Health Care Education/Training Program; PCP Internal Medicine
DX: S63.502A Unspecified sprain of left wrist, initial encounter (principal); M79.642 Pain in left hand; W01.0XXA Fall on same level from slipping, tripping and stumbling without subsequent striking against object, initial encounter; Y93.89 Activity, other specified; Y92.89 Other specified places as the place of occurrence of the external cause; Y99.8 Other external cause status
CPT/HCPCS: 73120; 99283; 99284

== ENCOUNTER → 2024-08-25 07:18 | Outpatient (BNV) | payer OTHER, MEDICARE, MEDICAID, SELFPAY | PROVIDERS: PCP Internal Medicine; Visit Provider Radiology Diagnostic Radiology | DX: M25.542 Pain in joints of left hand (principal) | CPT/HCPCS: 73120 ==

== ENCOUNTER 2024-10-14 15:26 | Outpatient (AMB) | payer MEDICARE, MEDICAID, SELFPAY ==
[2024-10-14 15:30] VITALS: BP 120/58; PULSE 68; O2SAT 93; BMI 20.2
--- NOTE | 2024-10-14 15:30 | MHC.OFFVIS ---
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 States tremor stable- maybe more if holding something. Her gait is stable. Had one fall at work- was walking while putting gloves on and tripped over a hose on the ground- and landed forward on her hand which resulted in residual hand pain. Denies shooting neck or back pain. She has nocturnal leg cramps about 3 times a week- tried Mag Ox 400mg qhs- caused loose stools. Sometimes an area of her mid-back may feel numb to the touch. Denies parasomnias. She continues to work in a physically active job. XR- C-spine showed- multilevel degenerative changes. 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 Small mastoid effusions and mild paranasal sinus mucosal thickening. [facility] Medical History Osteopenia History of colon polyps Personal history of nicotine dependence Chronic GERD (~2003) Depression with anxiety Surgical History Hx of tonsillectomy Hx of esophagogastroduodenoscopy (~2004) Hx of colonoscopy Family History Father Colon cancer Sister Mental health disorder Social History Housing: Apartment Alcohol intake: current Alcohol intake frequency: holidays/special occasions only Patient Tobacco Use Status: Former Tobacco user Tobacco use type: Cigarette Years Smoked: 34 years e-Cigarette/Vaping Use: Never Used Current occupational status: employed Cognitive needs: No Hearing needs: No Vision needs: Yes Physical Exam Vital Signs: Last Vital Signs Pulse 68 10/14/24 15:30 BP 120/58 L 10/14/24 15:30 Pulse Ox 93 10/14/24 15:30 Oxygen Delivery Method Room Air 10/14/24 15:30 BMI result Body Mass Index 20.2 Const General: cooperative and no acute distress Orientation/consciousness: patient oriented x3 Resp Effort & Inspection: normal respiratory effort and able to speak in complete sentences Neuro Other: Mild lower facial asymmetry. Fine finger movements: Just slightly slow. Foot taps: Slightly decreased Tone: No appreciable tone. Tandem: Slightly off balance Romberg: Slight sway, no full loss of balance. Gait: Steady gait. General: patient oriented x3 Cognition (Neuro): normal cognition Motor exam (neuro): 5/5 motor strength present throughout Psych Appearance: grossly normal Mental Status: mental status grossly normal Speech and movement: Normal speech and movement present Affect: normal affect Attitude: cooperative Thought process: Normal thought process present Thought content: Normal thought content present Insight: Good insight present (Psych) Judgement: Good judgement present (Psych) Assessment & Plan Assessment & Plan (1) White matter abnormality on MRI of brain: Code(s): R90.82 - White matter disease, unspecified Category: Medical (2) Tremor: Code(s): R25.1 - Tremor, unspecified Category: Medical (3) Abnormal tandem walk: Code(s): R26.9 - Unspecified abnormalities of gait and mobility Category: Medical Plan 01/23/24 Brain MRI- 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 Consider f/u brain MRI in 1-2 yrs to assess white matter lesion burden. December 2023 total CHO- 224 H. On 04/30/2024 HgA1C 5.5%, ESR 7, CRP 1.4-all WNL. BP is usually normotensive. No known h/o diabetes. . Pt has h/o alcohol and tobacco use- no longer using. Pt is physically active at work. It is important to engage in regular physical, social, cognitive activity for overall physical and cognitive well-being. Review of PCP know, shows patient had a July 2024 visit for intermittent left fingertip tingling. 01/27/24 C-spine x-ray multilevel mild to marked degenerative changes. Pt denies shooting neck pain or UE weakness. Elbow splints q.h.s. p.r.n.. Will monitor, consider c-spine MRI, EMG/NCS, PT if new/worsening s/s develop. f/u in 6 months or sooner prn. Coding Level of Care Code Est Pt Level 4 (25554) Diagnoses White matter abnormality on MRI of brain R90.82 Tremor R25.1 Abnormal tandem walk R26.9
== END 2024-10-14 16:09 | disposition home or self-care (01) ==
PROVIDERS: PCP Internal Medicine; Visit Provider Nurse Practitioner Family
DX: R90.82 White matter disease, unspecified (principal); R25.1 Tremor, unspecified; R26.9 Unspecified abnormalities of gait and mobility
CPT/HCPCS: 99214

== ENCOUNTER → 2024-11-25 08:30 | Outpatient (BNV) | payer MEDICARE, MEDICAID, SELFPAY | PROVIDERS: Absent Provider Obstetrics & Gynecology; PCP Internal Medicine; Visit Provider Internal Medicine | DX: Z12.31 Encounter for screening mammogram for malignant neoplasm of breast (principal) | CPT/HCPCS: 77063; 77067 ==

== ENCOUNTER 2024-11-25 08:31 | Outpatient (REF) | payer MEDICARE, MEDICAID, SELFPAY ==
--- OUTSIDE RECORDS SUMMARY | 2024-11-25 08:47 | XMS_ITS | Patient Health Record ---
Author Organization [facility] Address [address] [place] [address] Care Team Providers Care [employer] Professor Name Role Phone Saurabh MCKEON, Asma Primary Care Provider Jayson Moran [phone] REASON FOR REFERRAL No Information MEDICATIONS Medication [...] confirmed Screening for malignant neoplasm of colon (408980616) Problem Preprocedural examination (Z01.818) Active confirmed Preprocedural examination (377759107455018 ) Problem Family history of colon cancer (Z80.0) Active confirmed Family History of Cancer of Colon (Situation) (229092758) PLAN OF TREATMENT Future Test Test Name Order Date COLONOSCOPY 11/28/2014 COLONOSCOPY 08/07/2020 Insurance Providers Payer Name Payer Address Payer Phone Subscriber Number Group Number Insured Name Patient Relationship to Insured Coverage Start Date Coverage End Date [facility] [address] [place] [phone] [id number] CAMERON BABB Self - patient is the insured MEDICAL (GENERAL) HISTORY Medical History History ICD Code Neg. colonoscopies in 2002 and 06-11-2010 , except for hyperplastic polyps Denies [place],DM,CVA,Lung disease,renal dise ase GERD--neg. EGD in 2004 except a small HH Neg screening colonoscopy in 06/2015 Anxiety Surgical History Surgery Date(Month/Year) Tonsillectomy
== END 2024-11-25 08:32 | disposition home or self-care (01) ==
LOC: HO.MAMMO 08:31
PROVIDERS: Absent Provider Obstetrics & Gynecology; PCP Internal Medicine; Visit Provider Internal Medicine
DX: Z12.31 Encounter for screening mammogram for malignant neoplasm of breast (principal)
CPT/HCPCS: 77063; 77067

== ENCOUNTER 2024-12-02 07:55 | Outpatient (AMB) | payer MEDICARE, MEDICAID, SELFPAY ==
--- NOTE | 2024-12-02 07:57 | A.OFFPC_ITS ---
Vital Signs 12/02/24 08:00 Height 5 ft 5 in Weight 121 lb BMI 20.1 BP 134/60 Blood Pressure Location Rt brachial Position Sitting Respiration 16 Pulse 67 Pulse Source Pulse Oximeter Temp 97.8 F Temp Source Oral Pulse Oximetry (%) 96 Oxygen Delivery Method Room Air Intake Visit Reasons: 6 month follow up Allergies No Known Allergies Allergy (Verified 12/02/24 07:57) Medication List - Last Reconciled 12/02/24 by Yvette Wiley MD albuterol sulfate 90 mcg/actuation (ProAir HFA) 1 inh inhalation QID PRN 30 days Breo Ellipta 200-25 mcg/dose (fluticasone furoate-vilanterol) 1 inh inhalation DAILY 30 days NS magnesium 250 mg PO DAILY omeprazole 20 mg PO DAILY 90 days sertraline 150 mg (1.5 x 100 mg) PO DAILY 90 days Tobacco use date assessed: 12/02/24 Fall risk assessment: 1 Fall in past year Last assessed Fall Risk: 12/02/24 Dental Screening Dental Screen Date: 12/02/24 Did you have a dental visit in the last 12 months?: Yes Did you have a dental problem in the last 6 months where you did not have access to dental care?: No Was dental information given to patient?: Patient has dentist HPI 6 month follow up HPI Details Six-month follow-up appointment The patient is a 64-year-old female presenting with breathing difficulties associated with COPD. - Current inhaler therapy with Breo is d eemed ineffective by the patient, who had previously found better symptom relief with a different medication, presumably Wixela. - Difficulty in managing symptoms follow ed an illness in September where she subsequently observed improvement in her ability to move (e.g., climbing stairs) with the prior medication. - She experiences ongoing leg cramps and is under neurologic guidance to use magnesium glycinate. - GERD is managed with omeprazole withou t further issues noted in this discussion. - anxiety is stable with sertraline Problem List - Chronic Obstructive Pulmonary Disease (COPD) - Leg cramps - Gastroesophageal Reflux Disease (GERD) - mood disorder - prediabetic Patient Instructions - Continue taking magnesium glycinate fo r leg cramps as previously advised and monitor for any further issues with leg cramps. - Continue taking omeprazole as prescrib ed for GERD. 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 - Reduce sugar intake and maintain a bal anced diet. - Ellipta inhaler sent - Have fasting blood labs done as soon a s possible for re-evaluation of overall health status. - Plan for a follow-up appointment in [facility] as scheduled. Review of Systems - General: No fever no chills - Neurological: No headaches no dizziness - Ear nose throat: No sore throat no hearing difficulty no ear pain - Cardiovascular: No syncope, no chest pain, no palpitations - Gastrointestinal: No nausea vomiting or diarrhea - Endocrine: No polyuria polydipsia no heat intolerance - Genitourinary: No dysuria , no blood in urine Physical Exam - General: No acute distress - HEENT: No acute findings - Neck: Supple - Respiratory system: Able to talk in f ull sentences, no audible wheeze - cardiovascular: S1-S2 regular in rat e and rhythm - Gastrointestinal: No pain - Extremities: No new findings - SPOTTER: Alert awake oriented x3 motor se nsory intact - Skin: Normal turgor PFSH Medical History Osteopenia History of colon polyps Personal history of nicotine dependence Chronic GERD (~2003) Depression with anxiety Surgical History Hx of tonsillectomy Hx of esophagogastroduodenoscopy (~2004) Hx of colonoscopy Family History Father Colon cancer Sister Mental health disorder Social History Housing: Apartment Alcohol intake: current Alcohol intake frequency: holidays/special occasions only Patient Tobacco Use Status: Former Tobacco user Tobacco use type: Cigarette Years Smoked: 34 years e-Cigarette/Vaping Use: Never Used Current occupational status: employed Cognitive needs: No Hearing needs: No Vision needs: Yes Questionnaire Thrive Questionnaire Date Thrive assessed: 11/25/24 I am a: Patient What is your living situation today?: I have a steady place to live Within the past 12 months, did the food you bought not last and you didn't have the money to get more?: Never true Within the past 12 months, did you worry whether your food would run out before you got money to buy more?: Never true Do you have trouble paying for medicines?: No Do you have trouble getting transportation to medical appointments?: No Do you have trouble paying your heating and electricity bill?: No Do you have trouble taking care of your child, family member or friend?: No Do you have trouble with day-to-day activities such as bathing, preparing meals, shopping, managing finances, etc.?: No Are you currently unemployed and looking for a job?: No Are you interested in more education?: No Please select the resources that you would like help with: None Currently or been in a relationship where the following occur: No concerns reported THRIVE Score: 0 AUDIT C Alcohol Use Questionnaire (AUDIT-C) 1. How often do you have a drink containing alcohol?: 2-4 times a month 2. How many drinks containing alcohol do you have on a typical day when you are drinking?: 1 or 2 3. How often do you have six or more drinks on one occasion?: Never Total Score: 2 BESSIE-7 AMB Questionnaire BESSIE-7 Date BESSIE - 7 assessed: 05/27/24 Feeling nervous, anxious, or on edge: 0 = Not at all Not being able to stop or control worryin = Not at all Worrying too much about different things: 0 = Not at all Trouble relaxin = Not at all Being so restless that it is hard to sit still: 0 = Not at all Becoming easily annoyed or irritable: 0 = Not at all Feeling afraid as if something awful might happen: 0 = Not at all Total BESSIE-7 score (0-4 normal; 5-9 mild; 10-14 moderate; 15-21 severe): 0 Source: Developed by Drs. Jayson Melo, Erika Garcia, Godfrey Vargas and colleagues, with an educational mara from [employer]. Physical exam (Primary Care) Vital Signs: Last Vital Signs Temp 97.8 F 12/02/24 08:00 Pulse 67 12/02/24 08:00 Resp 16 12/02/24 08:00 BP 134/60 12/02/24 08:00 Pulse Ox 96 12/02/24 08:00 Oxygen Delivery Method Room Air 12/02/24 08:00 BMI result Body Mass Index 20.1 Tobacco/Smoking Status: Tobacco use Status Tobacco use date assessed 12/02/24 12/02/24 07:59 Patient Tobacco Use Status Former Tobacco user 12/02/24 07:59 Tobacco use type Cigarette 12/02/24 07:59 e-Cigarette/Vaping Use Never Used 12/02/24 07:59 Thrive Assessment: Date of Thrive Assessment Date Thrive assessed 11/25/24 12/02/24 07:59 Currently or been in a relationship where the following occur: No concerns reported Coding Level of Care Code Est Pt Level 4 (12846) Complex EM visit Add On G2211 Diagnoses Asthma-COPD overlap syndrome J44.89 Impaired fasting blood sugar R73.01 Lipid disorder E78.9 Excessive anger R45.4 Osteopenia, unspecified location M85.80 Osteopenia location: unspecified Assessment & Plan Assessment & Plan (1) Asthma-COPD overlap syndrome: Code(s): J44.89 - Other specified chronic obstructive pulmonary disease Category: Medical (2) Impaired fasting blood sugar: Code(s): R73.01 - Impaired fasting glucose Category: Medical (3) Lipid disorder: Code(s): E78.9 - Disorder of lipoprotein metabolism, unspecified Category: Medical (4) Excessive anger: Code(s): R45.4 - Irritability and anger Category: Medical (5) Osteopenia: Comment: (Bone Dexa - T Score -2.0 femoral neck, 03/17/2019) Code(s): M85.80 - Other specified disorders of bone density and structure, unspecified site Category: Medical Qualifiers: Osteopenia location: unspecified Qualified Code(s): M85.80 - Other specified disorders of bone density and structure, unspecified site Plan Six-month follow-up appointment The patient is a 64-year-old female presenting with breathing difficulties associated with COPD. - Current inhaler therapy with Breo is deemed ineffective by the patient, who had previously found better symptom relief with a different medication, presumably Wixela. - Difficulty in managing symptoms followed an illness in September where she subsequently observed improvement in her ability to move (e.g., climbing stairs) with the prior medication. - She experiences ongoing leg cramps and is under neurologic guidance to use magnesium glycinate. - GERD is managed with omeprazole without further issues noted in this discussion. - anxiety is stable with sertraline Problem List - Chronic Obstructive Pulmonary Disease (COPD) - Leg cramps - Gastroesophageal Reflux Disease (GERD) - mood disorder - prediabetic Patient Instructions - Continue taking magnesium glycinate for leg cramps as previously advised and monitor for any further issues with leg cramps. - Continue taking omeprazole as prescribed for GERD. 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 - Reduce sugar intake and maintain a balanced diet. - Ellipta inhaler sent - Have fasting blood labs done as soon as possible for re-evaluation of overall health status. - Plan for a follow-up appointment in May as scheduled. Orders: Orders Comprehensive [place]. Panel Fast Today E78.9 - Disorder of lipoprotein metabolism, unspecified, J44.89 - Other specified chronic obstructive pulmonary disease, M85.80 - Other specified disorders of bone density and structure, unspecified site, R45.4 - Irritability and anger, R73.01 - Impaired fasting glucose Lipid Panel Today E78.9 - Disorder of lipoprotein metabolism, unspecified, J44. 89 - Other specified chronic obstructive pulmonary disease, M85.80 - Other specified disorders of bone density and structure, unspecified site, R45.4 - Irritability and anger, R73.01 - Impaired fasting glucose Magnesium Today E78.9 - Disorder of lipoprotein metabolism, unspecified, J44.89 - Other specified chronic obstructive pulmonary disease, M85.80 - Other specified disorders of bone density and structure, unspecified site, R45.4 - Irritability and anger, R73.01 - Impaired fasting glucose Complete Blood Count Auto Diff Today E78.9 - Disorder of lipoprotein metabolism, unspecified, J44.89 - Other specified chronic obstructive pulmonary disease, M85.80 - Other specified disorders of bone density and structure, unspecified site, R45.4 - Irritability and anger, R73.01 - Impaired fasting glucose Vitamin D 25-OH (D2 and D3) Today E78.9 - Disorder of lipoprotein metabolism, unspecified, J44.89 - Other specified chronic obstructive pulmonary disease, M85.80 - Other specified disorders of bone density and structure, unspecified site, R45.4 - Irritability and anger, R73.01 - Impaired fasting glucose Medications: New psimxvjaunp-nqzkmvyfk-jgpcowdu 200-62.5-25 mcg (Trelegy Ellipta) 1 inh inhalation DAILY 30 days 60 ea 1RF J44.89 - Other specified chronic obstructive pulmonary disease Discontinued Breo Ellipta 200-25 mcg/dose (fluticasone furoate-vilanterol) Discontinued Reason: Doctor's Order 1 inh inhalation DAILY 30 days 28 cain 1RF NS
--- OUTSIDE RECORDS SUMMARY | 2024-12-02 07:58 | XMS_ITS | Patient Health Record ---
Author Organization [facility] Address [address] [place] [address] Care Team Providers Care Customer Assistance Associate Name Role Phone Saurabh MCKEON, Asma Primary Care Provider Jayson Moran [phone] REASON FOR REFERRAL No Information MEDICATIONS Medication [...] confirmed Screening for malignant neoplasm of colon (107581746) Problem Preprocedural examination (Z01.818) Active confirmed Preprocedural examination (368884612040667 ) Problem Family history of colon cancer (Z80.0) Active confirmed Family History of Cancer of Colon (Situation) (850644385) PLAN OF TREATMENT Future Test Test Name Order Date COLONOSCOPY 11/28/2014 COLONOSCOPY 08/07/2020 Insurance Providers Payer Name Payer Address Payer Phone Subscriber Number Group Number Insured Name Patient Relationship to Insured Coverage Start Date Coverage End Date [facility] [address] [place] [phone] [id number] CAMERON BABB Self - patient is the insured MEDICAL (GENERAL) HISTORY Medical History History ICD Code Neg. colonoscopies in 2002 and 06-11-2010 , except for hyperplastic polyps Denies [place],DM,CVA,Lung disease,renal dise ase GERD--neg. EGD in 2004 except a small HH Neg screening colonoscopy in 06/2015 Anxiety Surgical History Surgery Date(Month/Year) Tonsillectomy
[2024-12-02 08:00] VITALS: BP 134/60; PULSE 67; RESP 16; TEMP 36.6; O2SAT 96; BMI 20.1
== END 2024-12-02 09:06 | disposition home or self-care (01) ==
PROVIDERS: PCP Internal Medicine; Visit Provider Internal Medicine
DX: J44.89 Other specified chronic obstructive pulmonary disease (principal); R73.01 Impaired fasting glucose; E78.9 Disorder of lipoprotein metabolism, unspecified; R45.4 Irritability and anger; M85.80 Other specified disorders of bone density and structure, unspecified site

== ENCOUNTER → 2024-12-02 07:55 | Outpatient (BNVA) | payer MEDICARE, MEDICAID, SELFPAY | PROVIDERS: PCP Internal Medicine; Visit Provider Internal Medicine | DX: J44.89 Other specified chronic obstructive pulmonary disease (principal); R73.01 Impaired fasting glucose; E78.9 Disorder of lipoprotein metabolism, unspecified; R45.4 Irritability and anger; M85.80 Other specified disorders of bone density and structure, unspecified site | CPT/HCPCS: 99212 ==

== ENCOUNTER 2024-12-09 06:08 | Outpatient (REF) | payer MEDICARE, MEDICAID, SELFPAY ==
[2024-12-09 10:24] LABS: MANUAL DIFF FLAG NO
[2024-12-09 10:28] LABS: Basophils Percent Auto 0.8 % (0-2); Eosinophils Absolute Auto 0.2 X10*3/uL (0.0-0.4); Hematocrit 39.5 % (37.0-47.0); Hemoglobin 13.2 g/dl (12.0-16.0); Imm Gran Abs Auto 0.02 X10*3/uL (0.00-0.03); Imm Gran Pct Auto 0.4 % (0.0-0.4); Lymphocytes Absolute Auto 1.1 X10*3/uL (1.2-4.9); Lymphocytes Percent Auto 22.7 % (20-40); Mean Corpuscular HGB Conc 33.4 g/dl (31.0-35.0); Mean Corpuscular Hemoglobin 30.1 pg (27.0-33.0); Mean Corpuscular Volume 90.2 fL (80.0-98.0); Mean Platelet Volume 8.4 fL (9.4-12.3); Monocytes Absolute Auto 0.5 X10*3/uL (0.1-1.2); Monocytes Percent Auto 9.4 % (2-11); Neutrophils Absolute Auto 3.2 x10*3/uL (2.0-8.3); Neutrophils Percent Auto 63.7 % (45-73); Platelet Count 280 X10*3/uL (160-400); Red Blood Count 4.38 X10*6/uL (4.20-5.50); Red Cell Distribution Width 12.8 % (11.0-16.0)
[2024-12-09 10:52] LABS: Alanine Aminotransferase 31 U/L (0-31); Albumin Level 4.4 g/dL (3.5-5.0); Alkaline Phosphatase 56 U/L (39-117); Anion Gap 10 (12-20); Aspartate Amino Transferase 33 U/L (5-31); Bilirubin Total 0.5 mg/dL (0.0-1.0); Blood Urea Nitrogen 22 mg/dL (9-16); Calcium 9.5 mg/dL (8.4-10.2); Carbon Dioxide 25 mmol/L (22-29); Chloride 108 mmol/L (96-108); Cholesterol 256 mg/dL (<200); Estimated Glomerular Filt Rate > 60; Glucose Fasting 96 mg/dL (60-99); HDL Cholesterol 125 mg/dL (>40); LDL Cholesterol Calculated 123 mg/dL (<100); Magnesium 2.5 mg/dL (1.6-2.6); Potassium 4.1 mmol/L (3.3-5.1); Sodium 139 mmol/L (135-145); Total Protein 7.8 g/dL (6.5-8.0); Triglycerides 44 mg/dL (<150)
[2024-12-14 17:04] LABS: Vitamin D 25-OH, D2 <4 ng/mL; Vitamin D 25-OH, D3 58 ng/mL; Vitamin D 25-OH, Total 58 ng/mL (30-100)
== END 2024-12-09 06:09 | disposition home or self-care (01) ==
LOC: HO.HMGCLDS 06:08
PROVIDERS: PCP Internal Medicine; Visit Provider Internal Medicine
DX: J44.89 Other specified chronic obstructive pulmonary disease (principal); R73.01 Impaired fasting glucose; E78.9 Disorder of lipoprotein metabolism, unspecified; R45.4 Irritability and anger; M85.80 Other specified disorders of bone density and structure, unspecified site
CPT/HCPCS: 36415; 80053; 80061; 82306; 83735; 85025

== ENCOUNTER 2025-02-24 08:10 | Outpatient (AMB) | payer MEDICARE, MEDICAID, SELFPAY ==
--- NOTE | 2025-02-24 08:15 | A.OFFPC_ITS ---
Vital Signs 02/24/25 08:18 Height 5 ft 5 in Weight 121 lb BMI 20.1 BP 122/64 Blood Pressure Location Rt brachial Position Sitting Respiration 15 Pulse 59 Pulse Source Pulse Oximeter Temp 98.0 F Temp Source Oral Pulse Oximetry (%) 98 Oxygen Delivery Method Room Air Intake Visit Reasons: hurting arms/tongue Allergies No Known Allergies Allergy (Verified 02/24/25 08:18) Medication List - Last Reconciled 02/24/25 by Yvette Wiley MD albuterol sulfate 90 mcg/actuation (ProAir HFA) 1 inh inhalation QID PRN 30 days Breo Ellipta 200-25 mcg/dose (fluticasone furoate-vilanterol) 1 inh inhalation DAILY 30 days NS magnesium 240 mg PO DAILY omeprazole 20 mg PO DAILY 90 days sertraline 150 mg (1.5 x 100 mg) PO DAILY 90 days Tobacco use date assessed: 02/24/25 Fall risk assessment: 1 Fall in past year Last assessed Fall Risk: 02/24/25 Dental Screening Dental Screen Date: 02/24/25 Did you have a dental visit in the last 12 months?: Yes Did you have a dental problem in the last 6 months where you did not have access to dental care?: Yes Was dental information given to patient?: Patient has dentist HPI hurting arms/tongue HPI Details History - The patient is a 64-year-old female pr esenting with oropharyngeal pain and right elbow pain. - She reports that the oropharyngeal dis comfort began upon initiating the medication Trelegy, which caused tongue soreness. She has been rinsing her mouth after use, which provides some relief. - Symptoms persisted even after switchin g to the medication Breo, although her symptoms are less severe with Breo. This issue has been ongoing since starting Trelegy. - The patient initially noted significan t tongue soreness with Trelegy, but reports improvement since switching to Breo a month ago, albeit with occasional sensitivity, especially while brushing teeth. 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 - She experiences sharp pain when liftin g objects, specifically when using her right arm. She is wearing a brace on the right elbow for support. - She identifies herself as left-handed but notes that the right elbow pain is more intense than the left, which is less affected. - The pain in the elbow decreases when u sing ibuprofen, which she typically takes in the morning. She expresses satisfaction with ibuprofen's effectiveness. - patient is using tennis elbow splint Problem List - Oropharyngeal Candidiasis (Thrush) - Right Lateral Epicondylitis (Tennis El bow) Patient Instructions - Continue using ibuprofen with breakfas t as needed for pain management. - Use a brace on the right elbow to supp ort against tension during activities.. - Follow instructions for lozenges once obtained from the pharmacy to manage thrush symptoms. - Take measures to avoid repetitive or s trenuous movements that exacerbate elbow pain. 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 x3 motor sensory intact Skin: Normal turgor PFSH Medical History Osteopenia History of colon polyps Personal history of nicotine dependence Chronic GERD (~2003) Depression with anxiety Surgical History Hx of tonsillectomy Hx of esophagogastroduodenoscopy (~2004) Hx of colonoscopy Family History Father Colon cancer Sister Mental health disorder Social History Housing: Apartment Alcohol intake: current Alcohol intake frequency: holidays/special occasions only Patient Tobacco Use Status: Former Tobacco user Tobacco use type: Cigarette Years Smoked: 34 years e-Cigarette/Vaping Use: Never Used Current occupational status: employed Cognitive needs: No Hearing needs: No Vision needs: Yes Questionnaire Thrive Questionnaire Date Thrive assessed: 11/25/24 I am a: Patient What is your living situation today?: I have a steady place to live Within the past 12 months, did the food you bought not last and you didn't have the money to get more?: Never true Within the past 12 months, did you worry whether your food would run out before you got money to buy more?: Never true Do you have trouble paying for medicines?: No Do you have trouble getting transportation to medical appointments?: No Do you have trouble paying your heating and electricity bill?: No Do you have trouble taking care of your child, family member or friend?: No Do you have trouble with day-to-day activities such as bathing, preparing meals, shopping, managing finances, etc.?: No Are you currently unemployed and looking for a job?: No Are you interested in more education?: No Please select the resources that you would like help with: None Currently or been in a relationship where the following occur: No concerns reported THRIVE Score: 0 BESSIE-7 AMB Questionnaire BESSIE-7 Date BESSIE - 7 assessed: 05/27/24 Source: Developed by Drs. Jayson Melo, Erika Garcia, Godfrey Vargas and colleagues, with an educational mara from [employer]. Physical exam (Primary Care) Vital Signs: Last Vital Signs Temp 98.0 F 02/24/25 08:18 Pulse 59 02/24/25 08:18 Resp 15 02/24/25 08:18 BP 122/64 02/24/25 08:18 Pulse Ox 98 02/24/25 08:18 Oxygen Delivery Method Room Air 02/24/25 08:18 BMI result Body Mass Index 20.1 Tobacco/Smoking Status: Tobacco use Status Tobacco use date assessed 02/24/25 02/24/25 08:20 Patient Tobacco Use Status Former Tobacco user 02/24/25 08:17 Tobacco use type Cigarette 02/24/25 08:17 e-Cigarette/Vaping Use Never Used 02/24/25 08:17 Thrive Assessment: Date of Thrive Assessment Date Thrive assessed 11/25/24 02/24/25 08:17 Currently or been in a relationship where the following occur: No concerns reported Coding Level of Care Code Est Pt Level 3 (07525) Diagnoses Mouth discomfort K13.79 Right tennis elbow M77.11 Assessment & Plan Assessment & Plan (1) Mouth discomfort: Code(s): K13.79 - Other lesions of oral mucosa Category: Medical (2) Right tennis elbow: Code(s): M77.11 - Lateral epicondylitis, right elbow Category: Medical Plan History - The patient is a 64-year-old female presenting with oropharyngeal pain and right elbow pain. - She reports that the oropharyngeal discomfort began upon initiating the medication Trelegy, which caused tongue soreness. She has been rinsing her mouth after use, which provides some relief. - Symptoms persisted even after switching to the medication Breo, although her symptoms are less severe with Breo. This issue has been ongoing since starting Trelegy. - The patient initially noted significant tongue soreness with Trelegy, but reports improvement since switching to Breo a month ago, albeit with occasional sensitivity, especially while brushing teeth. 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 - She experiences sharp pain when lifting objects, specifically when using her right arm. She is wearing a brace on the right elbow for support. - She identifies herself as left-handed but notes that the right elbow pain is more intense than the left, which is less affected. - The pain in the elbow decreases when using ibuprofen, which she typically takes in the morning. She expresses satisfaction with ibuprofen's effectiveness. - patient is using tennis elbow splint Problem List - Oropharyngeal Candidiasis (Thrush) - Right Lateral Epicondylitis (Tennis Elbow) Patient Instructions - Continue using ibuprofen with breakfast as needed for pain management. - Use a brace on the right elbow to support against tension during activities.. - Follow instructions for lozenges once obtained from the pharmacy to manage thrush symptoms. - Take measures to avoid repetitive or strenuous movements that exacerbate elbow pain. Medications: New clotrimazole 10 mg mucous membrane TID 7 days 21 tabs 0RF B37.0 - Candidal stomatitis
[2025-02-24 08:18] VITALS: BP 122/64; PULSE 59; RESP 15; TEMP 36.7; O2SAT 98; BMI 20.1
--- OUTSIDE RECORDS SUMMARY | 2025-02-24 08:27 | XMS_ITS | Patient Health Record ---
Author Organization [facility] Address [address] [place] [address] Care Team Providers Care Hall Tender Name Role Phone Saurabh MCKEON, Asma Primary Care Provider Jayson Moran [phone] Reason For Referral No Information Medications Medication SIG (Take, Route, Fr equency, Duration) Notes Start Date End Date Status Omeprazole 20 MG 1 capsule Orally Once a day Active Sertraline HCl 100 MG TAKE 1 TABLET BY M OUTH EVERY DAY Oral for 90 Active Immunizations Vaccine Route Administration Date Status Comme nts Influenza Unknown 06/11/2020 Administered Problems Problem Type SNOMED Code ICD Code Onset Dates Problem Status W/U Status Risk Notes Problem Screening for malignant neoplasm of colon (183659371) Encounter for screening for malignant neoplasm of colon (Z12.11) Active confirmed Problem Preprocedural examination (702237579971056) Preprocedural examination (Z01.818) Active confirmed Problem Family History of Cancer of Colon (Situation) (179190135) Family history of colon cancer (Z80.0) Active confirmed Plan Of Treatment Future Test Test Name Order Date COLONOSCOPY 11/28/2014 COLONOSCOPY 08/07/2020 Insurance Providers Payer Name Payer Address Payer Phone Subscriber Number Group Number Insured Name Patient Relationship to Insured Coverage Start Date Coverage End Date [facility] [address] [place] [phone] [id number] CAMERON BABB Self - patient is the insured Medical (General) History Medical History History ICD Code Neg. colonoscopies in 2002 and 06-11-2010 , except for hyperplastic polyps Denies [place],DM,CVA,Lung disease,renal dise ase GERD--neg. EGD in 2004 except a small HH Neg screening colonoscopy in 06/2015 Anxiety Surgical History Surgery Date(Month/Year) Tonsillectomy
== END 2025-02-24 09:04 | disposition home or self-care (01) ==
LOC: HO.HMCC 08:15
PROVIDERS: PCP Internal Medicine; Visit Provider Internal Medicine
DX: K13.79 Other lesions of oral mucosa (principal); M77.11 Lateral epicondylitis, right elbow

== ENCOUNTER → 2025-02-24 08:10 | Outpatient (BNVA) | payer MEDICARE, MEDICAID, SELFPAY | PROVIDERS: PCP Internal Medicine; Visit Provider Internal Medicine | DX: M77.11 Lateral epicondylitis, right elbow (principal); K13.79 Other lesions of oral mucosa; B37.0 Candidal stomatitis | CPT/HCPCS: 99212 ==

== ENCOUNTER 2025-04-29 12:12 | Outpatient (AMB) | payer MEDICARE, MEDICAID, SELFPAY ==
--- OUTSIDE RECORDS SUMMARY | 2025-04-29 12:14 | XMS_ITS | Patient Health Record ---
Author Organization [facility] [employer] Address [address] [place] [address] [place] Helm [address] Care Team Providers Care Medical Records Coder Name Role Phone Dawna Felix Primary Care Provider Unavailab Noemy Aguilar Unavailable [phone] Reason For Referral No Information Medications Medication SIG (Take, Route, Fr equency, Duration) Notes Start Date End Date Status Ibuprofen 800 MG 1 tablet every Orall y every 6 hrs Not-Taking Zoloft 100mg Active Omeprazole 20 MG 1 capsule Orally Onc e a day; Duration: 30 day(s) Active Social History Alcohol Screen Question Answer Notes Did you have a drink contain ing alcohol in the past year? Yes How often did you have a dri nk containing alcohol in the past year? Monthly or less (1 point) Points 1 Interpretation Negative Tobacco use other than smoking: Question Answer Notes Are you an other tobacco user? Yes Problems Problem Type SNOMED Code ICD Code Onset Dates Problem Status W/U Status Risk Notes Problem Acquired hammer toe of right foot ([id number] 105) Other hammer toe(s) (acquired), right foot (M20.41) Active confirmed Problem Acquired hammer toe of left foot ([id number] 103) Other hammer toe(s) (acquired), left foot (M20.42) Active confirmed Plan Of Treatment Pending Test Test Name Order Date X ray : Foot, right 2V 07/16/2011 Insurance Providers Payer Name Payer Address Payer Phone Subscriber Number Group Number Insured Name Patient Relationship to Insured Coverage Start Date Coverage End Date [facility] [address] [place] [address] [phone] [id number] Ivana Roach Self - patient is the insured Medical (General) History Medical History History ICD Code chicken pox back, hip, knee pain Surgical History Surgery Date(Month/Year) tonsillectomy
[2025-04-29 12:27] VITALS: BP 112/50; PULSE 72; RESP 16; TEMP 36.7; O2SAT 96; BMI 20.3
--- NOTE | 2025-04-29 12:27 | AM.OFFWIN_ITS ---
Intake Vital Signs 04/29/25 12:27 Height 5 ft 5 in Weight 122 lb BMI 20.3 BP 112/50 L Blood Pressure Location Lt brachial Position Sitting Respiration 16 Pulse 72 Pulse Source Pulse Oximeter Temp 98.0 F Temp Source Oral Pulse Oximetry (%) 96 Oxygen Delivery Method Room Air Intake Visit Reasons: EP-Throat issue, cold symptoms? Intake Note: Pt is here today c/o throat issue, cough: patient has sores on back of throat Patient Tobacco Use Status: Former Tobacco user Allergies No Known Allergies Allergy (Verified 02/24/25 08:18) HPI HPI Comments History of Present Illness Details This is a 64-year-old female with a past medical history of COPD not currently oxygen dependent currently maintained on Breo and gastroesophageal reflux disease currently maintained on omeprazole presenting for evaluation ?feels like there is something in my throat? x1 month and discomfort on her tongue and roof of her mouth that she notes since starting an inhaler for management of her COPD. Patient states that she rinses her mouth with water at least 4 times after using her inhaler. Patient denies having any fevers or chills and denies any difficulty swallowing however states that she feels this foreign body sensation at the base of her throat only when swallowing. [facility] Medical History Osteopenia History of colon polyps Personal history of nicotine dependence Chronic GERD (~2003) Depression with anxiety Surgical History Hx of tonsillectomy Hx of esophagogastroduodenoscopy (~2004) Hx of colonoscopy Family History Father Colon cancer Sister Mental health disorder Social History Housing: Apartment Alcohol intake: current Alcohol intake frequency: holidays/special occasions only Patient Tobacco Use Status: Former Tobacco user Tobacco use type: Cigarette Years Smoked: 34 years e-Cigarette/Vaping Use: Never Used Current occupational status: employed Cognitive needs: No Hearing needs: No Vision needs: Yes Review of Systems Const All systems reviewed & are unremarkable except as noted in HPI and below Eyes Reports no additional complaints ENT Reports no additional complaints, Reports as per HPI, Denies dysphagia (discomfort swallowing), Denies otalgia, Denies facial pain, Reports odynophagia and Reports other (foreign body sensation in throat (points medially under thyroid)) Card Reports no additional complaints Resp Reports no additional complaints GI Denies dysphagia (discomfort swallowing) and Reports odynophagia Skin/Breast Reports system reviewed and no additional complaints, except as documented Neuro Reports no additional complaints Psych Reports no additional complaints Kanu/Lymph Reports no additional complaints Aller/Immun Reports no additional complaints Physical Exam Vital Signs: Last Vital Signs Temp 98.0 F 04/29/25 12:27 Pulse 72 04/29/25 12:27 Resp 16 04/29/25 12:27 BMI result Body Mass Index 20.3 Const General: cooperative, healthy appearing, comfortable, no acute distress, well developed, alert, awake and Physically active; No ill appearing Nutritional Appearance: well nourished Orientation/consciousness: patient oriented x3 Limitations: no limitations HEENT Head: Yes normal to inspection and Yes normocephalic Ears: hearing grossly normal bilaterally, external ears normal, TM's normal bilaterally and EAC's normal General nose exam: Normal external nose present Face and sinus: Yes normal facial exam Mouth: abnormal oral mucosae, tongue normal and other (no lesions or erythema soft palate) Teeth and gingiva: dentition normal Throat: Yes uvula midline, No peritonsillar mass, Yes posterior oropharynx abnormal (cobblestoning present), No postnasal drainage, No uvula laterally displaced and Yes cobblestoning Eyes General: appearance normal, both eyes and all related structures Neck Neck: Yes normal visual inspection and Yes full ROM Thyroid: Thyroid normal, no masses, no nodules and no palpable nodules Lymphatic: no lymphadenopathy noted Neuro General: patient oriented x3 Psych Appearance: grossly normal Mental Status: mental status grossly normal Insight: Good insight present (Psych) Judgement: Good judgement present (Psych) Assessment & Plan Assessment & Plan (1) Odynophagia: Comment: Patient has reported odynophagia previously associated with her inhaler use however states the foreign body sensation at the base of her throat is more acute, noting it only 1 month ago. Patient would benefit from an ENT evaluation. Code(s): R13.10 - Dysphagia, unspecified Plan: Patient to contact PCP for referral to ENT for further evaluation and management. Coding Level of Care Code Est Pt Level 3 (38571) Diagnoses Odynophagia R13.10 Time Spent (min) 20
== END 2025-04-29 13:15 | disposition home or self-care (01) ==
LOC: HO.HMCWIC 12:12
PROVIDERS: PCP Internal Medicine; Visit Provider Physician Assistant
DX: R13.10 Dysphagia, unspecified (principal)

== ENCOUNTER → 2025-04-29 12:12 | Outpatient (BNVA) | payer MEDICARE, MEDICAID, SELFPAY | PROVIDERS: PCP Internal Medicine; Visit Provider Physician Assistant | DX: R13.10 Dysphagia, unspecified (principal) | CPT/HCPCS: 99212 ==

== ENCOUNTER 2025-06-09 09:53 | Outpatient (AMB) | payer MEDICARE, SELFPAY ==
[2025-06-09 10:01] VITALS: BP 112/66; PULSE 66; RESP 18; TEMP 36.8; O2SAT 96; BMI 20.3
--- NOTE | 2025-06-09 10:01 | MHC.PC.OV ---
Vital Signs 06/09/25 10:01 Height 5 ft 5 in Weight 122 lb BMI 20.3 BP 112/66 Blood Pressure Location Lt brachial Position Sitting Respiration 18 Pulse 66 Pulse Source Pulse Oximeter Temp 98.2 F Temp Source Oral Pulse Oximetry (%) 96 Oxygen Delivery Method Room Air Intake Visit Reasons: PE Allergies No Known Allergies Allergy (Verified 06/09/25 10:01) Medication List - Last Reconciled 06/09/25 by Yvette Wiley MD albuterol sulfate 90 mcg/actuation 1 inh inhalation QID PRN 30 days fluticasone propion-salmeterol 500-50 mcg/dose (Advair Diskus) 1 inh inhalation Q12H magnesium 240 mg PO DAILY omeprazole 20 mg PO DAILY 90 days sertraline 150 mg (1.5 x 100 mg) PO DAILY 90 days Tobacco use date assessed: 06/09/25 Fall risk assessment: No Falls in past year Last assessed Fall Risk: 06/09/25 Dental Screening Dental Screen Date: 06/09/25 Did you have a dental visit in the last 12 months?: Yes Did you have a dental problem in the last 6 months where you did not have access to dental care?: No Was dental information given to patient?: Patient has dentist HPI PE HPI Details Physical exam appointment History of Present Illness The patient is a 64-year-old female presenting with COPD management and multi-symptom follow-up. Oropharyngeal Side Effects from Inhaled Corticosteroids: - The patient reported tongue and roof of the mouth pain associated with inhaler use. - Symptoms include occasional tongue pain, feeling of something stuck in throat which resolved. - Patient switched inhalers from Wixela back due to side effects. Feeling better now Chronic Obstructive Pulmonary Disease (COPD): - Patient experiences shortness of breath, especially when climbing stairs. - Patient has a history of smoking, ceased in July 2010. - Current medication with a high dose (500 mcg) inhaler. - Reported a pulmonary function test had never been done. - Umeclidinium inhaler added today Ingrown Toenail: - Experiencing left-sided ingrown toenail pain. - Chronic issue worsened after self-manipulation post-shower. - Evaluated the need for a pain management specialist visit referral placed Anxiety: - Established diagnosis of anxiety managed with sertraline 150 mg. Gastroesophageal Reflux Disease (GERD): - Managed with omeprazole with ongoing symptoms as needed. Osteopenia: - Had a bone density scan indicating osteopenia scoring minus 2.0 in 2019. Medical History: - Chronic Obstructive Pulmonary Disease (COPD) - Oropharyngeal side effects from inhaled corticosteroids - Anxiety - Gastroesophageal Reflux Disease (GERD) - Osteopenia Health Maintenance - Reported mammogram conducted in November of the current year. - Last colonoscopy noted in July 2020; next potentially due five years after. Dr. Roa - Vaccinations include Pneumonia vaccine (June 2024 planned), Tdap (2017), and Zoster (November 2019). [facility] of Care - Mentioned contact with pain management specialist Stephanie Farr needed for podiatric care. - Gastroenterology Dr. Roa Medications - Wixela (inhaler) 500 mcg for COPD - Omeprazole for GERD - Sertraline 150 mg for anxiety - Magnesium supplements as needed Diagnostic results - Labs (November): Normal CBC, electrolytes, kidney function; liver enzymes stable; LDL at 123; Vitamin D sufficient. - Bone density score noted as minus 2.0 in 2018; reflects osteopenia status. Patient Instructions - Schedule a pulmonary function test. - Avoid self-manipulation of the ingrown toenail; consult a pain management specialist. - Take supplementary inhaler as prescribed. - Advised on contacting pain management specialist Stephanie Farr for follow-up. - Follow-up with health maintenance vaccinations at pharmacy. Follow-up 4 months Review of Systems - General: No fever no chills - Neurological: No headaches no dizziness - Ear nose throat: No sore throat no hearing difficulty no ear pain - Cardiovascular: No syncope, no chest pain, no palpitations - Gastrointestinal: No nausea vomiting or diarrhea - Endocrine: No polyuria polydipsia no heat intolerance - Genitourinary: No dysuria - Skin: No new complaints Physical Exam General: Cooperative, healthy appearing, comfortable, no acute distress Orientation: Patient oriented x3 Head: Normal to inspection Ears: Within normal limit visually Nose: Normal external nose present Face and sinus: Normal facial exam Eyes: Appearance normal, extraocular movement intact pupils reactive Neck: Normal visual inspection and supple Respiratory: Normal respiratory effort but reports shortness of breath when walking upstairs. Clear to auscultation, no stridor Cardiovascular: S1 and S2 RRR Breast exam declined GI: Normal to inspection. Soft to palpation and nontender Skin: Turgor normal, no acute findings Neuro: Patient oriented x3, motor sensory intact, balance difficulty noted during tandem walk Extremities: Normal to inspection, left-sided toenail without infection PFSH Medical History Osteopenia History of colon polyps Personal history of nicotine dependence Chronic GERD (~2003) Depression with anxiety Surgical History Hx of tonsillectomy Hx of esophagogastroduodenoscopy (~2004) Hx of colonoscopy Family History Father Colon cancer Sister Mental health disorder Social History Housing: Apartment Alcohol intake: current Alcohol intake frequency: holidays/special occasions only Patient Tobacco Use Status: Former Tobacco user Tobacco use type: Cigarette Years Smoked: 34 years e-Cigarette/Vaping Use: Never Used service: No Current occupational status: employed Cognitive needs: No Hearing needs: No Vision needs: Yes Questionnaire PHQ-9 Over the last 2 weeks, how often have you been bothered by any of the following problems? 1. Little interest or pleasure in doing things: not at all 2. Feeling down, depressed, or hopeless: not at all 3. Trouble falling or staying asleep, or sleeping too much: not at all 4. Feeling tired or having little energy: not at all 5. Poor appetite or overeating: not at all 6. Feeling bad about yourself - or that you are a failure or have let yourself or your family down: not at all 7. Trouble concentrating on things, such as reading the newspaper or watching television: not at all 8. Moving or speaking so slowly that other people could have noticed. Or the opposite - being so fidgety or restless that you have been moving around a lot more than usual: not at all 9. Thoughts that you would be better off or of hurting yourself in some way: not at all Total score: 0 Depression Screening Interpretation: Negative Depression Screening Done: Yes [id number] - PHQ-9 Billing: Yes Source: Developed by Drs. Jayson Melo, Erika Garcia, Godfrey Vargas and colleagues, with an educational mara from [employer]. Thrive Questionnaire Date Thrive assessed: 06/09/25 I am a: Patient What is your living situation today?: I have a steady place to live Within the past 12 months, did the food you bought not last and you didn't have the money to get more?: Never true Within the past 12 months, did you worry whether your food would run out before you got money to buy more?: Never true Do you have trouble paying for medicines?: No Do you have trouble getting transportation to medical appointments?: No Do you have trouble paying your heating and electricity bill?: No Do you have trouble taking care of your child, family member or friend?: No Do you have trouble with day-to-day activities such as bathing, preparing meals, shopping, managing finances, etc.?: No Are you currently unemployed and looking for a job?: No Are you interested in more education?: No Please select the resources that you would like help with: None Currently or been in a relationship where the following occur: No concerns reported THRIVE Score: 0 BESSIE-7 AMB Questionnaire BESSIE-7 Date BESSIE - 7 assessed: 06/09/25 Feeling nervous, anxious, or on edge: 0 = Not at all Not being able to stop or control worryin = Not at all Worrying too much about different things: 0 = Not at all Trouble relaxin = Not at all Being so restless that it is hard to sit still: 0 = Not at all Becoming easily annoyed or irritable: 0 = Not at all Feeling afraid as if something awful might happen: 0 = Not at all Total BESSIE-7 score (0-4 normal; 5-9 mild; 10-14 moderate; 15-21 severe): 0 Source: Developed by Drs. Jayson Melo, Erika Garcia, Godfrey Vargas and colleagues, with an educational mara from [employer]. BESSIE-7 Assessment Billing BESSIE-7 Assessment Tool: BESSIE-7 Assessment 35038 Physical exam (Primary Care) Vital Signs: Last Vital Signs Temp 98.2 F 06/09/25 10:01 Pulse 66 06/09/25 10:01 Resp 18 06/09/25 10:01 BP 112/66 06/09/25 10:01 Pulse Ox 96 06/09/25 10:01 Oxygen Delivery Method Room Air 06/09/25 10:01 BMI result Body Mass Index 20.3 Tobacco/Smoking Status: Tobacco use Status Tobacco use date assessed 06/09/25 06/09/25 10:06 Patient Tobacco Use Status Former Tobacco user 06/09/25 10:06 Tobacco use type Cigarette 06/09/25 10:06 e-Cigarette/Vaping Use Never Used 06/09/25 10:06 PHQ-9: PHQ-9 Score PHQ-9: Total score 0 06/09/25 10:28 Depression Screening Interpretation: Negative Thrive Assessment: Date of Thrive Assessment Date Thrive assessed 06/09/25 06/09/25 10:06 Currently or been in a relationship where the following occur: No concerns reported Coding Level of Care Code Est Pt Level 3 (72821) Est Pt Prev Care >65y(20110) Diagnoses Encounter for general adult medical examination with abnormal findings Z00.01 Chronic obstructive pulmonary disease, unspecified COPD type J44.9 COPD type: unspecified COPD Ingrown toenail of left foot L60.0 Osteopenia, unspecified location M85.80 Osteopenia location: unspecified Abnormal tandem walk R26.9 Chronic GERD K21.9 Impaired fasting blood sugar R73.01 Lipid disorder E78.9 Excessive anger R45.4 Additional Codes BESSIE-7 Assessment Billing - BESSIE-7 Assessment Tool: BESSIE-7 Assessment 33809 ([id number]) PHQ-9 - 20658 - PHQ-9 Billing: Yes ([id number]) Assessment & Plan Assessment & Plan (1) Encounter for general adult medical examination with abnormal findings: Code(s): Z00.01 - Encounter for general adult medical examination with abnormal findings Category: Medical (2) COPD (chronic obstructive pulmonary disease): Code(s): J44.9 - Chronic obstructive pulmonary disease, unspecified Category: Medical Qualifiers: COPD type: unspecified COPD Qualified Code(s): J44.9 - Chronic obstructive pulmonary disease, unspecified (3) Ingrown toenail of left foot: Code(s): L60.0 - Ingrowing nail Category: Medical (4) Osteopenia: Comment: (Bone Dexa - T Score -2.0 femoral neck, 03/17/2019) Code(s): M85.80 - Other specified disorders of bone density and structure, unspecified site Category: Medical Qualifiers: Osteopenia location: unspecified Qualified Code(s): M85.80 - Other specified disorders of bone density and structure, unspecified site (5) Abnormal tandem walk: Code(s): R26.9 - Unspecified abnormalities of gait and mobility Category: Medical (6) Chronic GERD: Onset Date: ~2003 Code(s): K21.9 - Gastro-esophageal reflux disease without esophagitis Category: Medical (7) Impaired fasting blood sugar: Code(s): R73.01 - Impaired fasting glucose Category: Medical (8) Lipid disorder: Code(s): E78.9 - Disorder of lipoprotein metabolism, unspecified Category: Medical (9) Excessive anger: Code(s): R45.4 - Irritability and anger Category: Medical Plan Physical exam appointment History of Present Illness The patient is a 64-year-old female presenting with COPD management and multi-symptom follow-up. Oropharyngeal Side Effects from Inhaled Corticosteroids: - The patient reported tongue and roof of the mouth pain associated with inhaler use. - Symptoms include occasional tongue pain, feeling of something stuck in throat which resolved. - Patient switched inhalers from Nyxela back due to side effects. Feeling better now Chronic Obstructive Pulmonary Disease (COPD): - Patient experiences shortness of breath, especially when climbing stairs. - Patient has a history of smoking, ceased in July 2010. - Current medication with a high dose (500 mcg) inhaler. - Reported a pulmonary function test had never been done. - Umeclidinium inhaler added today Ingrown Toenail: - Experiencing left-sided ingrown toenail pain. - Chronic issue worsened after self-manipulation post-shower. - Evaluated the need for a pain management specialist visit referral placed Anxiety: - Established diagnosis of anxiety managed with sertraline 150 mg. Gastroesophageal Reflux Disease (GERD): - Managed with omeprazole with ongoing symptoms as needed. Osteopenia: - Had a bone density scan indicating osteopenia scoring minus 2.0 in 2018. Medical History: - Chronic Obstructive Pulmonary Disease (COPD) - Oropharyngeal side effects from inhaled corticosteroids - Anxiety - Gastroesophageal Reflux Disease (GERD) - Osteopenia Health Maintenance - Reported mammogram conducted in November of the current year. - Last colonoscopy noted in July 2020; next potentially due five years after. Dr. Roa - Vaccinations include Pneumonia vaccine (June 2024 planned), Tdap (2017), and Zoster (November 2019). [facility] [place] of Care - Mentioned contact with pain management specialist Stephanie Farr needed for podiatric care. - Gastroenterology Dr. Roa Medications - Wixela (inhaler) 500 mcg for COPD - Omeprazole for GERD - Sertraline 150 mg for anxiety - Magnesium supplements as needed Diagnostic results - Labs (November): Normal CBC, electrolytes, kidney function; liver enzymes stable; LDL at 123; Vitamin D sufficient. - Bone density score noted as minus 2.0 in 2019; reflects osteopenia status. Patient Instructions - Schedule a pulmonary function test. - Avoid self-manipulation of the ingrown toenail; consult a pain management specialist. - Take supplementary inhaler as prescribed. - Advised on contacting pain management specialist Stephanie Farr for follow-up. - Follow-up with health maintenance vaccinations at pharmacy. - due for bone density Follow-up 4 months Orders: Orders PFT pulmonary function test Today J44.9 - Chronic obstructive pulmonary disease, unspecified XR DEXA axial skeleton Today M85.80 - Other specified disorders of bone density and structure, unspecified site Referrals Podiatry Referral L60.0 - Ingrowing nail Medications: New fluticasone propion-salmeterol 500-50 mcg/dose (Wixela Inhub) 1 inh inhalation BID 60 ea 0RF umeclidinium 62.5 mcg/actuation 1 inh inhalation BEDTIME 30 ea 0RF Discontinued fluticasone propion-salmeterol 500-50 mcg/dose (Advair Diskus) rinse your mouth after use Discontinued Reason: Doctor's Order 1 inh inhalation Q12H 60 ea 2RF
--- OUTSIDE RECORDS SUMMARY | 2025-06-09 10:41 | XMS_ITS | Patient Health Record ---
Author Organization [facility] [employer] Address [address] [place] [address] [place] [address] Care Team Providers Care Food Management Aide Name Role Phone Dawna Felix Primary Care Provider Unavailab Noemy Aguilar Unavailable [phone] Reason For Referral No Information Medications Medication [...] Problem Acquired hammer toe of right foot ([id number] 105) Other hammer toe(s) (acquired), right foot (M20.41) Active confirmed Problem Acquired hammer toe of left foot ([id number] 103) Other hammer toe(s) (acquired), left foot (M20.42) Active confirmed Plan Of Treatment Pending Test Test Name Order Date X ray : Foot, right 2V 07/16/2011 Insurance Providers Payer Name Payer Address Payer Phone Subscriber Number Group Number Insured Name Patient Relationship to Insured Coverage Start Date Coverage End Date [facility] [address] [place] [address] [phone] [id number] Ivana Roach Self - patient is the insured Medical (General) History Medical History History ICD Code chicken pox back, hip, knee pain Surgical History Surgery Date(Month/Year) tonsillectomy
--- OUTSIDE RECORDS SUMMARY | 2025-06-09 10:41 | XMS_ITS | Clinical Summary ---
Author Organization [facility] Address [address] [place] [address] Care Team Providers Care Scarifier Operator Name Role Phone Unavailable Primary Care Provider Unavailabl e Encounters Date Type Department Care Team Description 05/15/2025 Transcribe Orders [facility] Yvette Wiley MD Foreign body sensation in throat (Primary Dx) from Last 3 Months Social History Tobacco Use Types Packs/Day Years Used Date Smoking Tobacco: Never Assessed Comments Unknown Sex and Gender Information Value Date Recorded Sex Assigned at Not on file Legal Sex Female 6:20 PM EST Gender Identity Not on file Sexual Orientation Not on file Plan of Treatment Health Maintenance Due Date Last Done Comments Hepatitis C Virus Screening 1960 HIV Screening 1972 DTaP/Tdap/Td Vaccines (1 - Tdap) 1978 Pneumococcal Vaccines 50+ (1 of 1 - PCV) 2009 Zoster (Shingles) Vaccine (1 of 2) 2009 COVID-19 Vaccine ( - 2023-2 5 season) 2024 RSV Vaccine 60 years and old er and Patients (1 - 1-dose 75+ series) 2034 Hepatitis B Vaccines Aged Out No long er eligible based on patient's age to complete this topic
--- OUTSIDE RECORDS SUMMARY | 2025-06-09 10:41 | XMS_ITS | Patient Health Record ---
Author Organization [facility] Address [address] [place] [address] Care Team Providers Care Hospice Educator Name Role Phone Saurabh MCKEON, Asma Primary Care Provider Jayson Moran [phone] Reason For Referral No Information Medications Medication [...] Problem Screening for malignant neoplasm of colon (512576401) Encounter for screening for malignant neoplasm of colon (Z12.11) Active confirmed Problem Preprocedural examination (438335500112251) Preprocedural examination (Z01.818) Active confirmed Problem Family History of Cancer of Colon (Situation) (119210890) Family history of colon cancer (Z80.0) Active confirmed Plan Of Treatment Future Test Test Name Order Date COLONOSCOPY 11/28/2014 COLONOSCOPY 08/07/2020 Insurance Providers Payer Name Payer Address Payer Phone Subscriber Number Group Number Insured Name Patient Relationship to Insured Coverage Start Date Coverage End Date [facility] [address] [place] [address] [phone] [id number] CAMERON BABB Self - patient is the insured Medical (General) History Medical History History ICD Code Neg. colonoscopies in 2002 and 06-11-2010 , except for hyperplastic polyps Denies [place],DM,CVA,Lung disease,renal dise ase GERD--neg. EGD in 2004 except a small HH Neg screening colonoscopy in 06/2015 Anxiety Surgical History Surgery Date(Month/Year) Tonsillectomy
== END 2025-06-09 10:30 | disposition home or self-care (01) ==
LOC: HO.HMCC 09:54
PROVIDERS: PCP Internal Medicine; Visit Provider Internal Medicine
DX: Z00.01 Encounter for general adult medical examination with abnormal findings (principal); J44.9 Chronic obstructive pulmonary disease, unspecified; L60.0 Ingrowing nail; M85.80 Other specified disorders of bone density and structure, unspecified site; R26.9 Unspecified abnormalities of gait and mobility; K21.9 Gastro-esophageal reflux disease without esophagitis; R73.01 Impaired fasting glucose; E78.9 Disorder of lipoprotein metabolism, unspecified; R45.4 Irritability and anger

== ENCOUNTER → 2025-06-09 09:53 | Outpatient (BNVA) | payer MEDICARE, SELFPAY | PROVIDERS: PCP Internal Medicine; Visit Provider Internal Medicine | DX: Z00.01 Encounter for general adult medical examination with abnormal findings (principal); J44.9 Chronic obstructive pulmonary disease, unspecified; K21.9 Gastro-esophageal reflux disease without esophagitis; L60.0 Ingrowing nail; M85.80 Other specified disorders of bone density and structure, unspecified site; R26.9 Unspecified abnormalities of gait and mobility; R73.01 Impaired fasting glucose; E78.9 Disorder of lipoprotein metabolism, unspecified; R45.4 Irritability and anger | CPT/HCPCS: 96127; 99212; 99397 ==

== ENCOUNTER 2025-06-30 09:52 | Outpatient (AMB) | payer MEDICARE, SELFPAY ==
--- NOTE | 2025-06-30 09:57 | A.OFFVIS_ITS ---
Vital Signs 3 06/30/25 10:03 Height 5 ft 5 in Weight 122 lb BMI 20.3 Intake Visit Reasons: Ingrowing nail Intake Note: Ivana is a 64 year old female who presents to the office today as a new patient visit referred by Dr. Wiley for an ingrown nail of her left great toe. Pt states she experiences slight pain on the top of her Hallux and she not needed to take any OTC pain meds at this time. Patient also has bilateral bunionns. Allergies No Known Allergies Allergy (Verified 06/09/25 10:01) Medication List - Last Reconciled 06/30/25 by Nida Watts DPM albuterol sulfate 90 mcg/actuation 1 inh inhalation QID PRN 30 days fluticasone propion-salmeterol 500-50 mcg/dose (Wixela Inhub) 1 inh inhalation BID magnesium 240 mg PO DAILY omeprazole 20 mg PO DAILY 90 days sertraline 150 mg (1.5 x 100 mg) PO DAILY 90 days umeclidinium 62.5 mcg/actuation 1 inh inhalation BEDTIME HPI Comments Details: The patient is a 64-year-old female with a PMH as seen below presenting with an ingrown toenail on the left hallux. The condition has been present for an extended period, as long as the patient can remember and she states the symptoms have been intermittent.. She reports wearing wide toed shoes, but her foot slides in them, causing discomfort when standing for prolonged periods. There is no associated pus or bleeding, and the pain is localized to the medial nail border of the left hallux. Patient denies any previous treatment for this current condition. She denies any inciting injuries. She denies any other pedal concerns. Patient denies any nausea, vomiting, fever, or chills. [facility] Medical History (Updated 07/01/25 @ 19:22 by Nida Watts DPM) Pain of left great toe Nail dystrophy Cellulitis of great toe, left Osteopenia History of colon polyps Personal history of nicotine dependence Chronic GERD (~2003) Depression with anxiety Surgical History Hx of tonsillectomy Hx of esophagogastroduodenoscopy (~2004) Hx of colonoscopy Family History Father Colon cancer Sister Mental health disorder Social History Housing: Apartment Alcohol intake: current Alcohol intake frequency: holidays/special occasions only Patient Tobacco Use Status: Former Tobacco user Tobacco use type: Cigarette Years Smoked: 34 years e-Cigarette/Vaping Use: Never Used service: No Current occupational status: employed Cognitive needs: No Hearing needs: No Vision needs: Yes Review of Systems Const Details: - Integumentary: Reports pain in the left hallux due to ingrown toenail to the medial border.. All systems reviewed & are unremarkable except as noted in HPI and below Physical Exam Vital Signs: BMI result Body Mass Index 20.3 Extrem Other: Left lower extremity focused physical exam: Derm: Mild edema noted to the medial nail border of the left hallux. Incurvation noted to the medial nail border of the left hallux with ingrowing noted. Mild erythema noted to the area of the proximal nail fold. No drainage, bleeding, or purulence noted. No open lesions abrasions or wounds noted. Skin supple and turgor within normal limits. Remaining toenails within normal limits. Vascular: DP/PT pulses palpable. Capillary refill time less than 3 seconds. Temperature gradient warm to warm. Pedal hair absent. Neuro: Protective sensation is grossly intact. MSK: Pain on palpation to the left hallux in the area of the medial nail border. No fluctuance noted. Range of motion of the forefoot within normal limit range of motion of the hindfoot and ankle within normal limits. No crepitus noted. MMT 5/5. Nonantalgic gait unassisted. Ankle/foot/toe images: 2 1. Office Procedures AMB Debridement/Avulsion Podia Details: Procedure:Left hallux partial nail avulsion of the medial border Cleansed left hallux with alcohol swab and injected 10cc of 1%lidocaine plain in a hallux block fashion. Next applied a tourniquet to the left hallux and then cleansed the left hallux with Betadine. Attention was drawn to the medial border of the left hallux and a [place] was utilized to free the offending nail border from the nail bed. Next an Martiniquais anvil was utilized to trim and cut the offending nail border and a hemostat was used to remove the offending nail border completely. A curette was used to ensure all spicules of the nail were removed from the nail bed. Triple antibiotic ointment a Band-Aid and Coban was then applied to the left hallux. Procedure was done with no incidents. Provided patient with aftercare instructions. [id number] Partial/Total nail avulsion (1 nail) Procedure code (CPT) selection complete Office Meds lidocaine HCl 10 mg/mL (1 %) injection solution Performing Provider: Nida Watts DPM Performing Location: [facility] Administered by: Nida Watts DPM on 06/30/25 10:27 2 Dose Route Admin Location Dispensed Lot Number Expiration Date [facility] Records Management Assistant 10 mL subcut 10 mL [id number] HOSPIRA/PFI ZER 2 Total Dispensed Waste 10 mL 0 % Triple Antibiotic 3.5 mg-400 unit-5,000 unit topical ointment packet Performing Provider: Nida Watts DPM Performing Location: [facility] Administered by: Nida Watts DPM on 06/30/25 10:27 2 Dose Route Admin Location Dispensed Lot Number Expiration Date [facility] Records Management Assistant 1 appl topical 1 appl [id number] PADAGIS povidone-iodine 10 % topical swab Performing Provider: Nida Watts DPM Performing Location: [facility] Administered by: Nida Watts DPM on 06/30/25 10:27 2 Dose Route Admin Location Dispensed Lot Number Expiration Date [facility] Records Management Assistant 1 appl topical 1 appl [id number] MEDLINE IND [place]. ethyl chloride 100 % topical spray Performing Provider: Nida Watts DPM Performing Location: [facility] Administered by: Nida Watts DPM on 06/30/25 10:27 2 Dose Route Admin Location Dispensed Lot Number Expiration Date [facility] Records Management Assistant 3 appl topical 116 mL [id number] Cempra. Results Reviewed Results Reviewed: Thoroughly reviewed patient's previous medical records. Assessment & Plan Assessment & Plan (1) Ingrown toenail of left foot: Code(s): L60.0 - Ingrowing nail Category: Medical (2) Cellulitis of great toe, left: Code(s): L03.032 - Cellulitis of left toe Category: Medical (3) Nail dystrophy: Code(s): L60.3 - Nail dystrophy Category: Medical (4) Pain of left great toe: Code(s): M79.675 - Pain in left toe(s) Category: Medical Plan Patient was informed and verbally consented to the use of an ambient scribe for clinic note documentation during this visit. I discussed with the patient the procedure of a partial nail avulsion. I explained the post-procedure care, including the use of Epsom salt soaks and Neosporin application (provided patient with after-care procedure form). 1. Left hallux ingrown toenail medial border - Performed a partial nail avulsion of the left hallux medial nail border with no incidents. - Post-procedure care includes applying a leaving bandage from procedure on for 24 hours, followed by Epsom salt soaks and application of Neosporin and a Band- Aid daily for two weeks. - Patient is to avoid tight fitting shoes, and is to wear wide toed shoes. - Patient is to keep the feet clean and dry and is to monitor her feet daily. Patient is to return to the office in 2 weeks for re-evaluation of symptoms. Advised patient to call the office or go to the ED if adverse symptoms occur. Orders: Orders 2 AMB Debridement/Avulsion Podiatry 06/30/25 L60.0 - Ingrowing nail Coding Level of Care Code New Pt Level 4 (79183) Diagnoses Ingrown toenail of left foot L60.0 Cellulitis of great toe, left L03.032 Nail dystrophy L60.3 Pain of left great toe M79.675 CPT Codes Skin Debridement - CPT: 84558 Partial/Total nail avulsion (1 nail) ([id number]) Time Spent (min) 57
[2025-06-30 10:03] VITALS: BMI 20.3
--- OUTSIDE RECORDS SUMMARY | 2025-06-30 10:25 | XMS_ITS ---
Author Name [facility] Organization Unknown Problems Problem Status Onset Date Problem Type Date of Resoluti on Source Foreign body sensation in throat active EncounterDiagnosisAct CCT
--- OUTSIDE RECORDS SUMMARY | 2025-06-30 10:25 | XMS_ITS | Clinical Summary ---
Author Organization [facility] Address [address] [place] [address] Care Team Providers Care Metal Wire Technician Name Role Phone Unavailable Primary Care Provider Unavailabl e Encounters Date Type Department Care Team Description 05/15/2025 Transcribe Orders [facility] PRIMARY CARE SCAN Yvette Wiley MD Foreign [...] Health Maintenance Due Date Last Done Comments Advance Care Planning 1960 Hepatitis C Virus Screening 1959 HIV Screening 1972 DTaP/Tdap/Td Vaccines (1 - Tdap) 1978 Pneumococcal Vaccines 50+ (1 of 1 - PCV) 2009 Zoster (Shingles) Vaccine (1 of 2) 2009 COVID-19 Vaccine ( - 2023-2 5 season) 2025 RSV Vaccine 60 years and old er and Patients (1 - 1-dose 75+ series) 2034 Hepatitis B Vaccines Aged Out No long er eligible based on patient's age to complete this topic
== END 2025-06-30 10:46 | disposition home or self-care (01) ==
LOC: HO.HPODS 09:53
PROVIDERS: PCP Internal Medicine; Visit Provider Student in an Organized Health Care Education/Training Program
DX: L60.0 Ingrowing nail (principal)
CPT/HCPCS: 11730

== ENCOUNTER → 2025-06-30 09:52 | Outpatient (BNVA) | payer MEDICARE, SELFPAY | PROVIDERS: PCP Internal Medicine; Visit Provider Student in an Organized Health Care Education/Training Program | DX: L60.0 Ingrowing nail (principal); L03.032 Cellulitis of left toe; L60.3 Nail dystrophy; M79.675 Pain in left toe(s) | CPT/HCPCS: 11730; J2003 ==

== ENCOUNTER 2025-07-13 15:41 | Outpatient (REF) | payer MEDICARE, OTHER, SELFPAY ==
--- NOTE | 2025-07-13 15:44 | PFT_ITS ---
Indication: COPD Spirometry FEV1 to FVC 42%; FEV1 1.4 L; FVC 3.36 L. No significant response to bronchodilators noted. Lung Volumes Total lung capacity 113% predicted; residual volume 126% predicted Diffusion Capacity DLCO 45% predicted Comparisons None Interpretation Does not obstructive ventilatory defect consistent with moderate to severe COPD. No significant response to bronchodilators noted. This is a trend of hyperinflation significant air trapping due to the COPD. The patient does have a moderate to severe diffusion impairment secondary to the above. Clinical correlation warranted. MTDD
[2025-07-13 16:24] VITALS: PULSE 62; O2SAT 97
--- OUTSIDE RECORDS SUMMARY | 2025-07-13 16:49 | XMS_ITS | Patient Health Record ---
Author Organization [facility] [place] Address [address] [place] [address] Care Team Providers Care Manager Respiratory Care Name Role Phone Saurabh MCKEON, Asma Primary Care Provider Unavailkeira e Noemy Farr Unavailable [phone] Reason For Referral No Information Medications Medication [...] Problem Acquired hammer toe of right foot (2376001009813 105) Other hammer toe(s) (acquired), right foot (M20.41) Active confirmed Problem Acquired hammer toe of left foot (1121453257758 103) Other hammer toe(s) (acquired), left foot (M20.42) Active confirmed Plan Of Treatment Pending Test Test Name Order Date X ray : Foot, right 2V 07/16/2011 Insurance Providers Payer Name Payer Address Payer Phone Subscriber Number Group Number Insured Name Patient Relationship to Insured Coverage Start Date Coverage End Date [facility] Preferred [address] [place] [address] [id number] Ivana Roach Self - patient is the insured Medical (General) History Medical History History ICD Code chicken pox back, hip, knee pain Surgical History Surgery Date(Month/Year) tonsillectomy
--- OUTSIDE RECORDS SUMMARY | 2025-07-13 16:49 | XMS_ITS | Clinical Summary ---
Author Organization [facility] Address [address] [place] [address] Care Team Providers Care Real Estate Administrator Name Role Phone Unavailable Primary Care Provider Unavailabl e Encounters Date Type Department Care Team Description 05/15/2025 Transcribe Orders [facility] PRIMARY CARE SCAN Yvette Wiley [...] Planning 1959 Hepatitis C Virus Screening 1959 DTaP/Tdap/Td Vaccines (1 - Tdap) 1978 Pneumococcal [...]
--- OUTSIDE RECORDS SUMMARY | 2025-07-13 16:49 | XMS_ITS | Patient Health Record ---
Author Organization [facility] Address [address] [place] [address] Care Team Providers Care Quality Rep Name Role Phone Saurabh MCKEON, Asma Primary Care Provider Jayson Moran [phone] Reason For Referral No Information Medications Medication [...] Problem Screening for malignant neoplasm of colon (799596050) Encounter for screening for malignant neoplasm of colon (Z12.11) Active confirmed Problem Preprocedural examination (719441979902766) Preprocedural examination (Z01.818) Active confirmed Problem Family History of Cancer of Colon (Situation) (143284551) Family history of colon cancer (Z80.0) Active confirmed Plan Of Treatment Future Test Test Name Order Date COLONOSCOPY 11/28/2014 COLONOSCOPY 08/07/2020 Insurance Providers Payer Name Payer Address Payer Phone Subscriber Number Group Number Insured Name Patient Relationship to Insured Coverage Start Date Coverage End Date [facility] [address] [place] [address] [phone] [id number] CAMERON BABB Self - patient is the insured Medical (General) History Medical History History ICD Code Neg. colonoscopies in 2002 and 06-11-2010 , except for hyperplastic polyps Denies [place],DM,CVA,Lung disease,renal dise ase GERD--neg. EGD in 2004 except a small HH Neg screening colonoscopy in 06/2015 Anxiety Surgical History Surgery Date(Month/Year) Tonsillectomy
== END 2025-07-13 15:42 | disposition home or self-care (01) ==
LOC: HO.RESP 15:41
PROVIDERS: PCP Internal Medicine; Visit Provider Internal Medicine
DX: J44.9 Chronic obstructive pulmonary disease, unspecified (principal)
CPT/HCPCS: 94010; 94640; 94727; 94729

== ENCOUNTER → 2025-07-13 15:44 | Outpatient (BNV) | payer MEDICARE, SELFPAY | PROVIDERS: PCP Internal Medicine; Visit Provider Hospitalist | DX: J44.9 Chronic obstructive pulmonary disease, unspecified (principal) | CPT/HCPCS: 94060; 94727; 94729 ==

== ENCOUNTER 2025-07-14 09:25 | Outpatient (AMB) | payer MEDICARE, SELFPAY ==
--- NOTE | 2025-07-14 09:29 | A.OFFVIS_ITS ---
Vital Signs 07/14/25 09:30 Height 5 ft 5 in Weight 122 lb BMI 20.3 Intake Visit Reasons: follow up nail avulsion Intake Note: Ivana is a 65 year old female who presents today for a follow up of her ingrown toenail of the left foot. She was seen on 06/30/25 where a Left hallux partial nail avulsion of the medial border was performed. Patient reports that she is doing well with no current concerns. Allergies No Known Allergies Allergy (Verified 07/14/25 09:35) HPI Comments Details: The patient is a 65-year-old female presenting for a follow-up evaluation for a left hallux ingrown toenail S/P partial nail avulsion. The ingrown toenail was previously treated during the last visit, and the patient reports no pain or signs of infection currently. Patient states she adhered to the after The healing process is progressing well, with the expectation that the nail corner will grow out completely in six to nine months. The patient denies any pain to the PNA site. She denies any new pedal injuries. Denies any other pedal concerns. Denies any N/V/F/C ON LICENSE OF [facility] Medical History (Updated 07/01/25 @ 19:22 by Nida Watts DPM) Pain of left great toe Nail dystrophy Cellulitis of great toe, left Osteopenia History of colon polyps Personal history of nicotine dependence Chronic GERD (~2003) Depression with anxiety Surgical History Hx of tonsillectomy Hx of esophagogastroduodenoscopy (~2004) Hx of colonoscopy Family History Father Colon cancer Sister Mental health disorder Social History Housing: Apartment Alcohol intake: current Alcohol intake frequency: holidays/special occasions o nly Patient Tobacco Use Status: Former Tobacco user Tobacco use type: Cigarette Years Smoked: 34 years e-Cigarette/Vaping Use: Never Used service: No Current occupational status: employed Cognitive needs: No Hearing needs: No Vision needs: Yes Review of Systems Const Details: - Integumentary: Reports healing to the left hallux PNA site without pain. All systems reviewed & are unremarkable except as noted in HPI and below Physical Exam Vital Signs: BMI result Body Mass Index 20.3 Extrem Other: Left lower extremity focused physical exam: Derm: Pre-hyperkeratotic lesion noted to the medial nail border of the hallux at the PNA site. PNA site noted to be healed without drainage, bleeding, or purulence. No edema or erythema noted. Remaining toenails WNL. Skin supple and turgor within normal limits. Vascular: DP/PT pulses palpable. Capillary refill time less than 3 seconds. Temperature gradient warm to warm. Pedal hair absent. Neuro: Protective sensation is grossly intact. MSK: No pain on palpation to the left hallux in the area of the medial nail border (PNA site). No fluctuance noted. Range of motion of the forefoot within normal limit range of motion of the hindfoot and ankle within normal limits. No crepitus noted. MMT 5/5. Nonantalgic gait unassisted. Assessment & Plan Assessment & Plan (1) Ingrown toenail of left foot: Code(s): L60.0 - Ingrowing nail Category: Medical (2) Cellulitis of great toe, left: Code(s): L03.032 - Cellulitis of left toe Category: Medical (3) Nail dystrophy: Code(s): L60.3 - Nail dystrophy Category: Medical (4) Pain of left great toe: Code(s): M79.675 - Pain in left toe(s) Category: Medical Plan Patient was informed and verbally consented to the use of an ambient scribe for clinic note documentation during this visit. I discussed with the patient that the PNA site of the left hallux medial border is healing well and discussed with patient how to avoid an ingrown occurring again. I advised discontinuing soaks and bandages unless irritation occurs and to protect the toe during certain activities. - Continue monitoring the toenail for any signs of ingrown recurrence or infection. - Discontinue soaks and bandages unless irritation occurs; protect the toe du ring activities like walking on the beach. - Avoid barefoot walking. - Continue wearing supportive shoe gear with a wide toebox. Patient may return to the office prn. Coding Level of Care Code Est Pt Level 3 (81646) Diagnoses Ingrown toenail of left foot L60.0 Cellulitis of great toe, left L03.032 Nail dystrophy L60.3 Pain of left great toe M79.675 Time Spent (min) 25
[2025-07-14 09:30] VITALS: BMI 20.3
--- OUTSIDE RECORDS SUMMARY | 2025-07-14 10:03 | XMS_ITS | Patient Health Record ---
Author Organization [facility] Address [address] [place] [address] Care Team Providers Care Assembler Show Motor Name Role Phone Saurabh MCKEON, Asma Primary Care Provider Jayson Moran [phone] Reason For Referral No Information Medications Medication [...] Problem Screening for malignant neoplasm of colon (651974850) Encounter for screening for malignant neoplasm of colon (Z12.11) Active confirmed Problem Preprocedural examination (488310631782946) Preprocedural examination (Z01.818) Active confirmed Problem Family History of Cancer of Colon (Situation) (503012981) Family history of colon cancer (Z80.0) Active confirmed Plan Of Treatment Future Test Test Name Order Date COLONOSCOPY 11/28/2014 COLONOSCOPY 08/07/2020 Insurance Providers Payer Name Payer Address Payer Phone Subscriber Number Group Number Insured Name Patient Relationship to Insured Coverage Start Date Coverage End Date [facility] [address] [place] [address] [id number] CAMERON BABB Self - patient is the insured Medical (General) History Medical History History ICD Code Neg. colonoscopies in 2002 and 06-11-2010 , except for hyperplastic polyps Denies [place],DM,CVA,Lung disease,renal dise ase GERD--neg. EGD in 2004 except a small HH Neg screening colonoscopy in 06/2015 Anxiety Surgical History Surgery Date(Month/Year) Tonsillectomy
--- OUTSIDE RECORDS SUMMARY | 2025-07-14 10:03 | XMS_ITS | Clinical Summary ---
Author Organization [facility] Address [address] [place] [address] Care Team Providers Care Integrity Assessor Name Role Phone Unavailable Primary Care Provider Unavailabl e Encounters Date Type Department Care Team Description 05/15/2025 Transcribe Orders [facility] PRIMARY CARE SCAN Yvette Wiley MD [...]
--- OUTSIDE RECORDS SUMMARY | 2025-07-14 10:03 | XMS_ITS | Patient Health Record ---
Author Organization [facility] [place] Address [address] [place] [address] Care Team Providers Care Bus Company Manager Name Role Phone Saurabh MCKEON, Asma Primary Care Provider Unavailkeira e Noemy Farr Unavailable [phone] Reason For Referral No Information Medications Medication [...] Problem Acquired hammer toe of right foot (5421755434536 105) Other hammer toe(s) (acquired), right foot (M20.41) Active confirmed Problem Acquired hammer toe of left foot (1426550057445 103) Other hammer toe(s) (acquired), left foot (M20.42) Active confirmed Plan Of Treatment Pending Test Test Name Order Date X ray : Foot, right 2V 07/16/2011 Insurance Providers Payer Name Payer Address Payer Phone Subscriber Number Group Number Insured Name Patient Relationship to Insured Coverage Start Date [facility]age End Date [facility] Medicare Preferred [address] [place] [address] [phone] [id number] Ivana Roach Self - patient is the insured Medical (General) History Medical History History ICD Code chicken pox back, hip, knee pain Surgical History Surgery Date(Month/Year) tonsillectomy
== END 2025-07-14 09:41 | disposition home or self-care (01) ==
LOC: HO.HPODS 09:26
PROVIDERS: PCP Internal Medicine; Visit Provider Student in an Organized Health Care Education/Training Program
DX: L60.0 Ingrowing nail (principal); L03.032 Cellulitis of left toe; L60.3 Nail dystrophy; M79.675 Pain in left toe(s)
CPT/HCPCS: 99213

== ENCOUNTER → 2025-07-14 09:25 | Outpatient (BNVA) | payer MEDICARE, SELFPAY | PROVIDERS: PCP Internal Medicine; Visit Provider Student in an Organized Health Care Education/Training Program | DX: Z48.89 Encounter for other specified surgical aftercare (principal); L60.0 Ingrowing nail; L03.032 Cellulitis of left toe; L60.3 Nail dystrophy; M79.675 Pain in left toe(s); Z87.2 Personal history of diseases of the skin and subcutaneous tissue | CPT/HCPCS: 99212 ==

== ENCOUNTER 2025-09-28 04:08 | Emergency (ER) | payer MEDICARE, OTHER, SELFPAY ==
[2025-09-28 04:10] VITALS: BP 178/92; PULSE 65; RESP 16; TEMP 36.4; O2SAT 98; BMI 20.8
--- NOTE | 2025-09-28 04:21 | ED.LOWEXIN ---
HPI - Extremity Injury (Lower) General Chief Complaint: Extremity Injury, Lower Stated Complaint: injury at work Time Seen by Provider: 09/28/25 04:19 Source: patient Mode of arrival: ambulatory Limitations: no limitations History of Present Illness ED Provider: Dr. Ambar Velazquez HPI Narrative: Patient comes to the emergency room complaining of an ecchymosis on the right side of the lower extremity. Patient states it has been there for about a week. Today, she noticed the ecchymosis starting to turn a greenish color and decided to come to get checked out. Patient states that she has had no significant swelling, no pain, patient is back to work, able to walk within normal limits, no calf pain swelling or cramping. Related Data Home Medications ?Medication ?Instructions ?Recorded ?Confirmed magnesium 250 mg tablet 240 mg PO DAILY 02/24/25 06/30/25 Previous Rx's ?Medication ?Instructions ?Recorded albuterol sulfate 90 mcg/actuation 1 inh inhalation QID PRN shortness 03/19/25 aerosol inhaler of breath or wheezing 30 days #18 grams sertraline 100 mg tablet 150 mg (1.5 x 100 mg) PO DAILY 90 07/19/25 days #135 tabs omeprazole 20 mg capsule,delayed 20 mg PO DAILY 90 days #90 caps 08/04/25 release fluticasone 500 mcg-salmeterol 50 1 inh inhalation BID #60 ea 08/15/25 mcg/dose blistr powdr for inhalation (Wixela Inhub) umeclidinium 62.5 mcg/actuation 1 inh inhalation BEDTIME #30 ea 09/24/25 blister powder for inhalation Allergies Allergy/AdvReac Type Severity Reaction Status Date / Time No Known Allergies Allergy Verified 09/28/25 04:14 Review of Systems Review of Systems: Constitutional : No Weight loss, No Fever, No Chills, No Night Sweats, No Fatigue, No Malaise ENT/Mouth : No Hearing loss, No Ear Pain, No Nasal Congestion, No Sinus Pain, No Hoarseness, No sore throat, No Rhinorrhea, No Swallowing Difficulty Eyes: No Eye Pain, No Swelling, No Redness, No Foreign Body, No Discharge, No Vision Changes Cardiovascular : No Chest Pain, No SOB, No Dyspnea on Exertion, No Orthopnea, No Edema, No Palpitations Respiratory : No Cough, No Sputum, No Wheezing, No Smoke Exposure, No Dyspnea Gastrointestinal : No Nausea, No Vomiting, No Diarrhea, No Constipation, No abdominal Pain, No Hematochezia, No Melena Genitourinary : no irregular bleeding, No Dysuria, No Urinary Frequency, No Hematuria, No Urinary Incontinence, No Urgency, No Flank Pain, No Urinary Flow Changes, No Hesitancy Musculoskeletal : No joint pain, No Myalgias, No Joint Swelling Skin : Complaining of ecchymosis on the lower extremity on the right side, present for over a week. Denies swelling or pain Neuro : No Weakness, No Numbness, No Paresthesias, No Loss of Consciousness, No Dizziness, No Headache Psych : No Anxiety/Panic, No Depression, No SI/HI/AH/VH, No Social Issues, Heme/Lymph: No Bruising, No Bleeding,No Lymphadenopathy Endocrine : No Polyuria, No Polydipsia, No Temperature Intolerance PMFSH Past Medical History Medical History Pain of left great toe Nail dystrophy Cellulitis of great toe, left Osteopenia History of colon polyps Personal history of nicotine dependence Chronic GERD (~2003) Depression with anxiety Surgical History Hx of tonsillectomy Hx of esophagogastroduodenoscopy (~2004) Hx of colonoscopy Family History Family History Father Colon cancer Sister Mental health disorder Social History Social History Housing: Apartment Alcohol intake: current Alcohol intake frequency: holidays/special occasions only Patient Tobacco Use Status: Former Tobacco user Tobacco use type: Cigarette Years Smoked: 34 years e-Cigarette/Vaping Use: Never Used Do you have a plan to hurt others: No Plan service: No Current occupational status: employed Cognitive needs: No Hearing needs: No Vision needs: Yes Physical Exam Exam: Exam: Appearance: Alert. Oriented X3. No acute distress. Eyes: Pupils equal, round and reactive to light. ENT: Pharynx normal. Neck: Normal inspection. Neck supple. No lymph nodes noted. No crepitus CVS: Normal heart rate and rhythm. Pulses normal. Normal S1 and S2 Respiratory: No respiratory distress. Breath sounds normal. No Wheezing. No rales Abdomen: Soft and nontender. No rigidity. No distention. Skin: Skin warm and dry. Normal skin color. Normal skin turgor. Patient has a ecchymosis on the right side of the lower extremity medial aspect. The leg itself is not swollen, no pain to palpation, normal steady gait. Extremities: No lower extremity edema. No Lacerations. No Rash Neuro: Oriented X 3. No motor deficit. No sensory deficit. Moving all extremities. No slurred speech. CN 2 through 12 grossly intact Psych: calm, cooperative, normal affect Vital Signs: Vital Signs: Last Vital Signs Temp 97.6 F 09/28/25 04:10 Pulse 65 09/28/25 04:10 Resp 16 09/28/25 04:10 BP 178/92 H 09/28/25 04:10 Pulse Ox 98 09/28/25 04:10 O2 Del Method Room Air 09/28/25 04:10 BMI result Body Mass Index 20.8 Medical Decision Making Medical Decision Making MDM Narrative: I discussed the physical exam with the patient. DVT is not suspected. Greenish discoloration is part of healing from an ecchymosis. Patient has no pain, patient states that she feels well. Further intervention at this time is indicated. Discharge Plan Discharge Clinical Impression: Ecchymosis Patient Disposition: Home, Self-Care Instructions: Ecchymosis (ED) Additional Instructions: Please follow-up with your primary care physician tomorrow. If you have any worsening or new symptoms, please return to the emergency room or call 911 Prescriptions: No Action albuterol sulfate 90 mcg/actuation HFA aerosol inhaler 1 inh inhalation QID PRN (Reason: shortness of breath or wheezing) 30 Days Qty: 18 2RF sertraline 100 mg tablet 150 mg PO DAILY 90 Days Qty: 135 0RF omeprazole 20 mg capsule,delayed release(DR/EC) 20 mg PO DAILY 90 Days Qty: 90 1RF fluticasone propion-salmeterol [Wixela Inhub] 500-50 mcg/dose blister with device 1 inh inhalation BID Qty: 60 1RF umeclidinium 62.5 mcg/actuation blister with device 1 inh inhalation BEDTIME Qty: 30 0RF magnesium 250 mg tablet 240 mg PO DAILY Print Language: Filipino
[2025-09-28 04:29] VITALS: BP 178/92; PULSE 65; RESP 16; TEMP 36.4; O2SAT 98
--- OUTSIDE RECORDS SUMMARY | 2025-09-28 04:30 | XMS_ITS | Patient Health Record ---
Author Organization [facility] [place] Address [address] [place] [address] Care Team Providers Care Polysomnographic Technician Name Role Phone Saurabh MCKEON, Asma Primary Care Provider Unavailkeira e Noemy Farr Unavailable [phone] Reason For Referral No Information Medications Medication [...] Problem Acquired hammer toe of right foot (6702724411868 105) Other hammer toe(s) (acquired), right foot (M20.41) Active confirmed Problem Acquired hammer toe of left foot (2243275208367 103) Other hammer toe(s) (acquired), left foot (M20.42) Active confirmed Plan Of Treatment Pending Test Test Name Order Date X ray : Foot, right 2V 07/16/2011 Insurance Providers Payer Name Payer Address Payer Phone Subscriber Number Group Number Insured Name Patient Relationship to Insured Coverage Start Date Coverage End Date [facility] 65 Medicare Preferred [address] [place] [address] [phone] [id number] Ivana Roach Self - patient is the insured Medical (General) History Medical History History ICD Code chicken pox back, hip, knee pain Surgical History Surgery Date(Month/Year) tonsillectomy
--- OUTSIDE RECORDS SUMMARY | 2025-09-28 04:30 | XMS_ITS | Patient Health Record ---
Author Organization [facility] Address [address] [place] [address] Care Team Providers Care Veneer Clipper Name Role Phone Saurabh MCKEON, [facility] Primary Care Provider Jayson Moran [phone] Reason For Referral No Information Medications Medication SIG (Take, Route, Frequency, Duration) Notes Start Date End Date Status Omeprazole 20 MG Capsule Delayed Release 1 capsule Orally Once a day Active Sertraline HCl 100 MG Tablet TAKE 1 TABLET BY MOUTH EVERY DAY Oral; Duration: 90 Active Immunizations Vaccine Route Administration Date Status Comme nts Influenza Unknown 06/11/2020 Administered Social History Social History Additional Details Category Social Info Options Details Miscellaneous: Marital status: single 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 Section Notes: Nonsmoker since 2009; occasi onal beer Nonsmoker since 2009; occasi onal beer Problems Problem Type SNOMED Code ICD Code Onset Dates Problem Status W/U Status Risk Notes Problem Screening for malignant neoplasm of colon (216105592) Encounter for screening for malignant neoplasm of colon (Z12.11) Active confirmed Problem Preprocedural examination (099887526097939) Preprocedural examination (Z01.818) Active confirmed Problem Family History of Cancer of Colon (Situation) (295095243) Family history of colon cancer (Z80.0) Active confirmed Plan Of Treatment Future Test Test Name Order Date COLONOSCOPY 11/28/2014 COLONOSCOPY 08/07/2020 Next Appt Details Provider Name:Jayson Roa , 11/15/2025 04:20:00 PM, [address], [address], [place], [address], Insurance Providers Payer Name Payer Address Payer Phone Subscriber Number Group Number Insured Name Patient Relationship to Insured Coverage Start Date Coverage End Date [facility] [address] [place] [phone] [id number] CAMERON BABB Self - patient is the insured Medical (General) History Medical History History ICD Code Neg. colonoscopies in 2002 and 06-11-2010 , except for hyperplastic polyps Denies [place],DM,CVA,Lung disease,renal dise ase GERD--neg. EGD in 2004 except a small HH Neg screening colonoscopy in 06/2015 Anxiety Surgical History Surgery Date(Month/Year) Tonsillectomy
== END 2025-09-28 04:30 | disposition home or self-care (01) ==
PROVIDERS: Emergency Provider Emergency Medicine; PCP Internal Medicine
DX: S80.11XA Contusion of right lower leg, initial encounter (principal); W22.8XXA Striking against or struck by other objects, initial encounter; Y93.89 Activity, other specified; Y92.511 Restaurant or cafe as the place of occurrence of the external cause; Y99.0 Civilian activity done for income or pay
CPT/HCPCS: 99282

== ENCOUNTER 2025-09-29 09:47 | Outpatient (AMB) | payer MEDICARE, MEDICAID, SELFPAY ==
[2025-09-29 09:49] VITALS: BP 140/90; PULSE 66; O2SAT 95; BMI 20.6
--- NOTE | 2025-09-29 09:49 | MHC.PC.OV ---
Vital Signs 09/29/25 09:49 Height 5 ft 5 in Weight 124 lb BMI 20.6 BP 140/90 H Blood Pressure Location Lt brachial Position Sitting Pulse 66 Pulse Source Pulse Oximeter Pulse Oximetry (%) 95 Intake Visit Reasons: 4m follow up Allergies No Known Allergies Allergy (Verified 09/29/25 09:51) Medication List - Last Reconciled 09/29/25 by Yvette Wiley MD albuterol sulfate 90 mcg/actuation 1 inh inhalation QID PRN 30 days fluticasone propion-salmeterol 500-50 mcg/dose (Wixela Inhub) 1 inh inhalation BID magnesium 240 mg PO DAILY omeprazole 20 mg PO DAILY 90 days sertraline 150 mg (1.5 x 100 mg) PO DAILY 90 days umeclidinium 62.5 mcg/actuation 1 inh inhalation BEDTIME Tobacco use date assessed: 06/09/25 Fall risk assessment: No Falls in past year Last assessed Fall Risk: 09/29/25 Dental Screening Dental Screen Date: 06/09/25 HPI HPI Comments History of Present Illness Details History of Present Illness The patient is a 65 year old female presenting for a regular follow-up visit for her lung condition and management of other chronic conditions. Hypertension: - The patient's blood pressure has been elevated, with a reading of 140/90 mmHg today and 178/92 mmHg yesterday. - Previous readings in April and May were lower, around 112 mmHg systolic. - The patient acknowledges feeling nervous in the clinic, which may contribute to elevated readings. - She owns a home blood pressure machine but has not been checking her readings regularly. Anxiety: - The patient is taking sertraline 150 mg for anxiety. Gastroesophageal Reflux Disease:- The patient takes omeprazole for GERD. Asthma: - The patient uses an inhaler for her lung condition, which she reports is helping. - She denies any current shortness of breath. Preventive Care: - The patient's last bloodwork was conducted in November, almost a year ago. - She has already received her flu vaccine for the season. Social History: - Employment: she is employed. Diagnostic Results: - Labs from November (approximately one year ago): - Slightly elevated liver enzyme. - Kidney function: Normal. - Glucose: Normal. - LDL: 123. - Vitamin D: Normal. [facility] Medical History Pain of left great toe Nail dystrophy Cellulitis of great toe, left Osteopenia History of colon polyps Personal history of nicotine dependence Chronic GERD (~2003) Depression with anxiety Surgical History Hx of tonsillectomy Hx of esophagogastroduodenoscopy (~2004) Hx of colonoscopy Family History Father Colon cancer Sister Mental health disorder Social History Housing: Apartment Alcohol intake: current Alcohol intake frequency: holidays/special occasions only Patient Tobacco Use Status: Former Tobacco user Tobacco use type: Cigarette Years Smoked: 34 years e-Cigarette/Vaping Use: Never Used Advance Directives Date on File: 10/02/20 service: No Current occupational status: employed Cognitive needs: No Hearing needs: No Vision needs: Yes Questionnaire Thrive Questionnaire Date Thrive assessed: 11/25/24 I am a: Patient What is your living situation today?: I have a steady place to live Within the past 12 months, did the food you bought not last and you didn't have the money to get more?: Never true Within the past 12 months, did you worry whether your food would run out before you got money to buy more?: Never true Do you have trouble paying for medicines?: No Do you have trouble getting transportation to medical appointments?: No Do you have trouble paying your heating and electricity bill?: No Do you have trouble taking care of your child, family member or friend?: No Do you have trouble with day-to-day activities such as bathing, preparing meals, shopping, managing finances, etc.?: No Are you currently unemployed and looking for a job?: No Are you interested in more education?: No Please select the resources that you would like help with: None Currently or been in a relationship where the following occur: No concerns reported THRIVE Score: 0 BESSIE-7 AMB Questionnaire BESSIE-7 Date BESSIE - 7 assessed: 06/09/25 Source: Developed by Drs. Jayson Melo, Erika Garcia, Godfrey Vargas and colleagues, with an educational mara from [employer]. Review of Systems Narrative Review of Systems . - General: No fever no chills - Neurological: No headaches no dizziness - Ear nose throat: No sore throat no hearing difficulty no ear pain - Cardiovascular: No syncope, no chest pain, no palpitations - Gastrointestinal: No nausea vomiting or diarrhea - Endocrine: No polyuria polydipsia no heat intolerance - Genitourinary: No dysuria , no blood in urine Physical exam (Primary Care) Vital Signs: Last Vital Signs Pulse 66 09/29/25 09:49 BP 140/90 H 09/29/25 09:49 Pulse Ox 95 09/29/25 09:49 BMI result Body Mass Index 20.6 Tobacco/Smoking Status: Tobacco use Status Tobacco use date assessed 06/09/25 09/29/25 09:49 Patient Tobacco Use Status Former Tobacco user 09/29/25 09:49 Tobacco use type Cigarette 09/29/25 09:49 e-Cigarette/Vaping Use Never Used 09/29/25 09:49 Thrive Assessment: Date of Thrive Assessment Date Thrive assessed 11/25/24 09/29/25 09:49 Currently or been in a relationship where the following occur: No concerns reported Narrative Physical Exam General: No acute distress HEENT: No acute findings Neck: Supple Respiratory system: Able to talk in full sentences, no audible wheeze Cardiovascular: S1-S2 regular in rate and rhythm, blood pressure 140/90 Gastrointestinal: No pain Extremities: No new findings WAFER FABRICATOR: Alert awake oriented x3 motor intact Skin: Normal turgor Coding Level of Care Code Est Pt Level 4 (97710) Diagnoses Chronic GERD K21.9 Osteopenia, unspecified location M85.80 Osteopenia location: unspecified Lipid disorder E78.9 Impaired fasting blood sugar R73.01 Asthma-COPD overlap syndrome J44.89 Assessment & Plan Assessment & Plan (1) Chronic GERD: Onset Date: ~2003 Code(s): K21.9 - Gastro-esophageal reflux disease without esophagitis Category: Medical (2) Osteopenia: Comment: (Bone Dexa - T Score -2.0 femoral neck, 03/17/2019) Code(s): M85.80 - Other specified disorders of bone density and structure, unspecified site Category: Medical Qualifiers: Osteopenia location: unspecified Qualified Code(s): M85.80 - Other specified disorders of bone density and structure, unspecified site (3) Lipid disorder: Code(s): E78.9 - Disorder of lipoprotein metabolism, unspecified Category: Medical (4) Impaired fasting blood sugar: Code(s): R73.01 - Impaired fasting glucose Category: Medical (5) Asthma-COPD overlap syndrome: Code(s): J44.89 - Other specified chronic obstructive pulmonary disease Category: Medical Plan Problem List - Hypertension - Anxiety - Asthma - Gastroesophageal reflux disease - Preventive care: Annual labs and influenza vaccination Plan - The patient was advised to start monitoring her blood pressure at home and to bring a log of her readings to the next appointment. - She was informed that if her blood pressure consistently remains at or above 140 mmHg systolic, medication will be necessary. - An order will be placed for her annual lab work. - Refills for her current medications will be sent to the pharmacy. - A follow-up visit is scheduled for March. - The workman's compensation-related leg issue was not addressed and would require a separate visit, if needed Orders: Orders Comprehensive [place]. Panel Fast Today E78.9 - Disorder of lipoprotein metabolism, unspecified, J44.89 - Other specified chronic obstructive pulmonary disease, K21.9 - Gastro-esophageal reflux disease without esophagitis, M85.80 - Other specified disorders of bone density and structure, unspecified site, R73.01 - Impaired fasting glucose Complete Blood Count Auto Diff Today E78.9 - Disorder of lipoprotein metabolism, unspecified, J44.89 - Other specified chronic obstructive pulmonary disease, K21.9 - Gastro-esophageal reflux disease without esophagitis, M85.80 - Other specified disorders of bone density and structure, unspecified site, R73.01 - Impaired fasting glucose Lipid Panel Today E78.9 - Disorder of lipoprotein metabolism, unspecified, J44.89 - Other specified chronic obstructive pulmonary disease, K21.9 - Gastro-esophageal reflux disease without esophagitis, M85.80 - Other specified disorders of bone density and structure, unspecified site, R73.01 - Impaired fasting glucose Medications: Refilled omeprazole 20 mg PO DAILY 90 caps 1RF 90 days K21.9 - Gastro-esophageal reflux disease without esophagitis umeclidinium 62.5 mcg/actuation 1 inh inhalation BEDTIME 30 ea 2RF albuterol sulfate 90 mcg/actuation 1 inh inhalation QID PRN 18 grams 2RF shortness of breath or wheezing 30 days fluticasone propion-salmeterol 500-50 mcg/dose (Wixela Inhub) 1 inh inhalation BID 60 ea 4RF sertraline 150 mg (1.5 x 100 mg) PO DAILY 135 tabs 0RF 90 days F41.8 - Other specified anxiety disorders
--- OUTSIDE RECORDS SUMMARY | 2025-09-29 10:43 | XMS_ITS | Patient Health Record ---
Author Organization [facility] [place] Address [address] [place] [address] Care Team Providers Care Covered Buckle Assembler Name Role Phone Saurabh MCKEON, Asma Primary Care Provider Unavailkeira e Noemy Farr Unavailable [phone] Reason For Referral No Information Medications Medication [...] Problem Acquired hammer toe of right foot (9257008058406 105) Other hammer toe(s) (acquired), right foot (M20.41) Active confirmed Problem Acquired hammer toe of left foot (0366497221036 103) Other hammer toe(s) (acquired), left foot (M20.42) Active confirmed Plan Of Treatment Pending Test Test Name Order Date X ray : Foot, right 2V 07/16/2011 Insurance Providers Payer Name Payer Address Payer Phone Subscriber Number Group Number Insured Name Patient Relationship to Insured Coverage Start Date Coverage End Date [facility] 65 Medicare Preferred [address] [place] [address] [id number] Ivana Roach Self - patient is the insured Medical (General) History Medical History History ICD Code chicken pox back, hip, knee pain Surgical History Surgery Date(Month/Year) tonsillectomy
--- OUTSIDE RECORDS SUMMARY | 2025-09-29 10:43 | XMS_ITS | Patient Health Record ---
Author Organization [facility] Address [address] [place] [address] Care Team Providers Care Doctor Of Pharmacy Name Role Phone Saurabh MCKEON, [facility] Primary Care Provider Jayson Moran [phone] Reason For Referral No Information Medications Medication [...] Options Details Miscellaneous: Marital status: single Occupation: [employer] Section Notes: Nonsmoker since 2009; [employer] Nonsmoker since 2009; [employer] beer Problems Problem Type SNOMED Code ICD Code Onset Dates Problem Status W/U Status Risk Notes Problem Screening for malignant neoplasm of colon (821358761) Encounter for screening for malignant neoplasm of colon (Z12.11) Active confirmed Problem Preprocedural examination (997884788145687) Preprocedural examination (Z01.818) Active confirmed Problem Family History of Cancer of Colon (Situation) (604255613) Family history of colon cancer (Z80.0) Active confirmed Plan Of Treatment Future Test Test Name Order Date COLONOSCOPY 11/28/2014 COLONOSCOPY 08/07/2020 Next Appt Details Provider Name:Jayson Roa , 11/15/2025 04:20:00 PM, [address], [address], [place], [address], Insurance Providers Payer Name Payer Address Payer Phone Subscriber Number Group Number Insured Name Patient Relationship to Insured Coverage Start Date Coverage End Date [facility] [address] [place] [phone] [id number] CAMERON BABB Self - patient is the insured Medical (General) History Medical History History ICD Code Neg. colonoscopies in 2002 and 06-11-2010 , except for hyperplastic polyps Denies [place],DM,CVA,Lung disease,renal dise ase GERD--neg. EGD in 2004 except a small HH Neg screening colonoscopy in 06/2015 Anxiety Surgical History Surgery Date(Month/Year) Tonsillectomy
== END 2025-09-29 10:23 | disposition home or self-care (01) ==
LOC: HO.HMCC 09:48
PROVIDERS: PCP Internal Medicine; Visit Provider Internal Medicine
DX: J44.89 Other specified chronic obstructive pulmonary disease (principal); K21.9 Gastro-esophageal reflux disease without esophagitis; E78.9 Disorder of lipoprotein metabolism, unspecified; R73.01 Impaired fasting glucose; M85.80 Other specified disorders of bone density and structure, unspecified site

== ENCOUNTER → 2025-09-29 09:47 | Outpatient (BNVA) | payer MEDICARE, MEDICAID, OTHER, SELFPAY | PROVIDERS: PCP Internal Medicine; Visit Provider Internal Medicine | DX: R73.01 Impaired fasting glucose (principal); I10 Essential (primary) hypertension; K21.9 Gastro-esophageal reflux disease without esophagitis; M85.80 Other specified disorders of bone density and structure, unspecified site; E78.9 Disorder of lipoprotein metabolism, unspecified; J44.89 Other specified chronic obstructive pulmonary disease; F41.9 Anxiety disorder, unspecified | CPT/HCPCS: 99212 ==